=== PATIENT | female | born 1950 | race Two or more races ===

== ENCOUNTER 2016-11-30 10:28 | Inpatient (IN) | payer MEDICAID ==
[2016-11-30] VITALS (9 sets, daily range): BP systolic 127–187; BP diastolic 46–85
[~2016-11-30] VITALS: Ht 154.9 cm; Wt 47.2 kg
[2016-11-30] MEDS ORDERED: METFORMIN HCL500 M5 PO (10:48)
[2016-11-30] MEDS ORDERED: FAMOTIDINE20 MG ORAL (10:48)
[2016-11-30] MEDS ORDERED: LOSARTAN POTASS25 M1 PO ×2 (10:51→21:05)
[2016-11-30] MEDS ORDERED: DILTIAZEM 24HR180 M1 ORAL ×2 (10:51→21:07)
[2016-11-30] MEDS ORDERED: ATORVASTATIN CA20 MG ORAL (10:51)
[2016-11-30] MEDS ORDERED: CLONIDINE1 EAC1 TD (10:51)
[2016-11-30 11:26] LABS: APPEARANCE,URINE CLEAR; KETONES,URINE NEGATIVE (NEGATIVE); LEUKOCYTE ESTERASE ,URINE 1+ (NEGATIVE); NITRITE,URINE NEGATIVE (NEGATIVE); PH,URINE 6 (4.5-8.0); PROTEIN,URINE 2+ (NEGATIVE); UROBILINOGEN,URINE NORMAL MG/DL (0.0-1.0)
[2016-11-30 11:35] LABS: BACTERIA,URINE FEW /HPF; MUCUS,URINE FEW /LPF (NONE/OCC); SQUAMOUS EPITHELIAL CELL,UR FEW /LPF (NONE/OCC); WBC,URINE 0-2 /HPF (0 - 2)
[2016-11-30 11:38] LABS: BASOPHILS % (AUTO) 0.6 % (0.0-2.0); EOSINOPHILS % (AUTO) 0.5 % (0.0-3.0); LYMPHOCYTES % (AUTO) 15.6 % (20.0-45.0); MEAN CORPUSCULAR HGB CONC 31.7 G/DL (32.0-36.0); MEAN CORPUSCULAR VOLUME 85 FL (80-99); MEAN PLATELET VOLUME 6.9 FL (6.5-10.1); MONOCYTES % (AUTO) 6.8 % (1.0-10.0); NEUTROPHILS % (AUTO) 76.6 % (45.0-75.0); PLATELET COUNT 285 K/UL (150-450); RED BLOOD COUNT 5.04 M/UL (4.20-5.40); RED CELL DISTRIBUTION WIDTH 11.4 % (11.6-14.8); WHITE BLOOD COUNT 15.2 K/UL (4.8-10.8)
[2016-11-30 11:50] LABS: TROPONIN I < 0.30 ng/mL (<=0.30)
[2016-11-30 11:53] LABS: ALANINE AMINOTRANSFERASE 17 U/L (3-33); ALBUMIN/GLOBULIN RATIO 1.2 (1.0-2.7); ANION GAP 18 (5-15); ASPARTATE AMINO TRANSFERASE 15 U/L (5-40); CALCIUM 9.2 mg/dL (8.6-10.2); CARBON DIOXIDE 27 mEQ/L (20-30); CHLORIDE 89 mEQ/L (98-107); CREATININE 0.7 mg/dL (0.5-0.9); GLOMERULAR FILTRATION RATE > 60 mL/min (>60); HEMOLYSIS 4; LIPASE 25 U/L (< 60); SODIUM 134 mEQ/L (135-145); TOTAL PROTEIN 6.7 g/dL (6.6-8.7)
[2016-11-30] MEDS ORDERED: Piperacillin/Tazobactam 3.375 GM in NS 110 ML IVPB ONE (14:00)
[2016-11-30] MEDS ORDERED: NS 110 ML ONE (14:04)
[2016-11-30] MEDS ORDERED: Zosyn 3.375gm inj ONE (14:04)
[2016-11-30] MEDS ORDERED: LR 1000ml 1,000 ML IV SCH (14:15)
--- NOTE | 2016-11-30 14:41 | Emergency Room Report ---
History of Present Illness General Chief Complaint: Abdominal Pain Source: Patient Present Illness HPI 66 YO F with 1 week generalized abd pain. /10. Decreased BMs. Usually goes 3x a day, down to 1x. Denies nausea/vomiting, diarrhea, foreign travel, urinary complaints. Denies abd/pelvis surgery previously. Allergies: Coded Allergies: No Known Allergies (Unverified , 11/30/16) Patient History Past Medical History: HTN Past Surgical History: none Pertinent Family History: none Social History: Denies: alcohol use, drug use, smoking Now: No Immunizations: UTD Reviewed Nursing Documentation: PMH: Agreed, PSxH: Agreed Nursing Documentation-PMH Past Medical History: No History, Except For Hx Diabetes: Yes Review of Systems All Other Systems: negative except mentioned in HPI Physical Exam Vital Signs Date Time Temp Pulse Resp B/P Pulse Ox O2 Delivery O2 Flow Rate FiO2 11/30/16 10:41 98.2 94 18 136/64 94 Room Air Sp02 EP Interpretation: reviewed, normal General Appearance: normal inspection, well appearing, no apparent distress, alert, GCS 15, non-toxic Head: normocephalic, atraumatic Eyes: bilateral eye EOMI, bilateral eye PERRL ENT: normal ENT inspection, hearing grossly normal, normal voice Neck: normal inspection, full range of motion, supple, no bony tend Respiratory: normal inspection, lungs clear, normal breath sounds, no respiratory distress, no retraction, no wheezing Cardiovascular #1: regular rate, rhythm, no edema Gastrointestinal: normal inspection, normal bowel sounds, soft, no guarding, no hernia, other - Generalized ttp throughout abdomen. No rebound or guarding. No surgical scars. Genitourinary: no CVA tenderness Musculoskeletal: normal inspection, back normal, normal range of motion, Kathy' s Sign negative Neurologic: normal inspection, alert, oriented x3, responsive, storage battery inspector III-XII nml as tested, motor strength/tone normal, speech normal Psychiatric: normal inspection, judgement/insight normal, mood/affect normal Skin: normal inspection, normal color, no rash Medical Decision Making Medicare Attestation I Debora Licea MD hereby attest that the medical record entry for date of service, 09/15/16 accurately reflects signatures/notations that I made in my capacity as MD when I treated/diagnosed the above listed Medicare beneficiary. I attest that this information is true, accurate and complete to the best of my knowledge. I understand that any falsification, omission, or concealment of material fact may subject me to administrative, civil, or criminal liability. This patient warrants hospital admission for extreme of age and has a condition that cannot be treated as outpatient. Diagnostic Impression: Primary Impression: Perforation of small intestine ER Course 66 YO F with microperf of jejunem on CTAP. Leuks 16k. Empiric Zosyn given. Analgesia given. NPO. Dr Childers bedside to evaluate for surgical intervention Endorsed to Dr Mccracken for Dr Gonzales at 230pm for med/surg admission Last Vital Signs Date Time Temp Pulse Resp B/P Pulse Ox O2 Delivery O2 Flow Rate FiO2 11/30/16 13:24 97 21 127/81 95 Room Air 11/30/16 10:41 98.2 Status: improved Disposition: ADMITTED INPATIENT Condition: Critical Referrals: NON PHYSICIAN (PCP) DEBORA LICEA M.D. Nov 30, 2016 14:41
--- NOTE | 2016-11-30 14:57 | Pre-Procedure Note/Attestation ---
Pre-Procedure Note/Attestation Complete Prior to Procedure Planned Procedure: not applicable Procedure Narrative: exploratory laparotomy possible bowel resection Indications for Procedure Pre-Operative Diagnosis: perforation small bowel Attestation I attest that I discussed the nature of the procedure; its benefits; risks and complications; and alternatives (and the risks and benefits of such alternatives ), prior to the procedure, with the patient (or the patient's legal fraud representative). I attest that, if there was a reasonable possibility of needing a blood transfusion, the patient (or the patient's legal fraud representative) was given the [facility] standardized written summary, pursuant to the Samuel Heidi Blood Safety Act ([place] Health and Safety Code # 1645, as amended). I attest that I re-evaluated the patient just prior to the surgery and that there has been no change in the patient's H&P, except as documented below:none MARELY MCINTYRE Nov 30, 2016 14:57
[2016-11-30] MEDS ORDERED: NS Irrig 1000ml IRRIG ONE (16:00)
--- NOTE | 2016-11-30 16:09 | Anethesia Preoperative Eval ---
Anesthesia Pre-op PMH/ROS General Date of Evaluation: Nov 30, 2016 Time of Evaluation: 15:20 Anesthesiologist: Ad ASA Score: ASA 3 Mallampati Score Class I : Soft palate, uvula, fauces, pillars visible Class II: Soft palate, uvula, fauces visible Class III: Soft palate, base of uvula visible Class IV: Only hard plate visible Mallampati Classification: Class II Surgeon: Alvarado Diagnosis: Perforated viskus Surgical Procedure: Exploratory laparotomy bowel resection Anesthesia History: none Family History: no anesthesia problems Allergies: Coded Allergies: No Known Allergies (Unverified , 11/30/16) Medications: see eMAR Past Medical History Cardiovascular: Reports: HTN, Denies: CAD, GA, arrhythmia, other, valve dz Pulmonary: Denies: COPD, KELLY, asthma, other Gastrointestinal/Genitourinary: Reports: GERD Neurologic/Psychiatric: Denies: CVA, TIA, dementia, depression/anxiety, other Endocrine: Reports: DM, Denies: hypothyroidism, other, steroids HEENT: Denies: [place] (L), [place] (R), cataract (L), cataract (R), glaucoma, other Hematology/Immune: Denies: DVT, anemia, bleeding disorder, other Musculoskeletal/Integumentary: Reports: DJD, Denies: DDD, OA, RA, edema, other PMH Narrative: admitted for acute abdominal pain PSxH Narrative: Knee Sx Anesthesia Pre-op Phys. Exam Physician Exam Last Vital Signs Date Time Temp Pulse Resp B/P Pulse Ox O2 Delivery O2 Flow Rate FiO2 11/30/16 15:30 98.2 97 21 127/81 95 Room Air Constitutional: NAD Neurologic: CN 2-12 intact Cardiovascular: RRR, no M/R/G Respiratory: CTA Gastrointestinal: other - some tenderness Airway Exam Mallampati Score: Class II MO: limited Neck: stiff ROM: limited Teeth: missing Dentures: lower, upper Anesthesia Pre-op A/P Labs Hematology Test 11/30/16 11:20 White Blood Count 15.2 K/UL (4.8-10.8) H Red Blood Count 5.04 M/UL (4.20-5.40) Hemoglobin 13.6 G/DL (12.0-16.0) Hematocrit 42.9 % (37.0-47.0) Mean Corpuscular Volume 85 FL (80-99) Mean Corpuscular Hemoglobin 27.0 PG (27.0-31.0) Mean Corpuscular Hemoglobin Concent 31.7 G/DL (32.0-36.0) L Red Cell Distribution Width 11.4 % (11.6-14.8) L Platelet Count 285 K/UL (150-450) Mean Platelet Volume 6.9 FL (6.5-10.1) Neutrophils (%) (Auto) 76.6 % (45.0-75.0) H Lymphocytes (%) (Auto) 15.6 % (20.0-45.0) L Monocytes (%) (Auto) 6.8 % (1.0-10.0) Eosinophils (%) (Auto) 0.5 % (0.0-3.0) Basophils (%) (Auto) 0.6 % (0.0-2.0) Chemistry Test 11/30/16 11:20 Sodium Level 134 mEQ/L (135-145) L Potassium Level 3.0 mEQ/L (3.4-4.9) L Chloride Level 89 mEQ/L (98-107) L Carbon Dioxide Level 27 mEQ/L (20-30) Anion Gap 18 (5-15) H Blood Urea Nitrogen 13 mg/dL (7-23) Creatinine 0.7 mg/dL (0.5-0.9) Estimat Glomerular Filtration Rate > 60 mL/min (>60) Glucose Level 155 mg/dL (74-106) H Calcium Level 9.2 mg/dL (8.6-10.2) Total Bilirubin 0.9 mg/dL (0.0-1.2) Aspartate Amino Transf (AST/SGOT) 15 U/L (5-40) Alanine Aminotransferase (ALT/SGPT) 17 U/L (3-33) Alkaline Phosphatase 48 U/L (35-104) Troponin I < 0.30 ng/mL (<=0.30) Total Protein 6.7 g/dL (6.6-8.7) Albumin 3.7 g/dL (3.5-5.2) Globulin 3.0 g/dL Albumin/Globulin Ratio 1.2 (1.0-2.7) Lipase 25 U/L (< 60) MYLENE BARRAZA M.D. Nov 30, 2016 16:09
[2016-11-30] MEDS ORDERED: LR 1000ml 1,000 ML IVLG SCH (16:10)
[2016-11-30] MEDS ORDERED: Hydromorphone 0.5mg/0.5ml inj IVP PRN (16:15)
[2016-11-30] MEDS ORDERED: fentaNYL 100 mcg/2 mL IV PRN (16:15)
[2016-11-30] MEDS ORDERED: DiphenhydrAMINE 50mg/ml Inj IVP PRN (16:15)
[2016-11-30] MEDS ORDERED: Midazolam 2mg/2ml Inj IVP PRN (16:15)
--- NOTE | 2016-11-30 16:53 | Brief Operative Note ---
Immediate Post Operative Note Operative Note Pre-op Diagnosis: perforation small bowel Procedure: explor lap small bowel resection Post-op Diagnosis: small bowel perforation Surgeon: anna Anesthesiologist: Dr hernandez Anesthesia: general Complications: none Condition: stable Estimated Blood Loss: volume - 30 cc Drains: none Implant(s) used?: No MARELY MCINTYRE Nov 30, 2016 16:53
--- NOTE | 2016-11-30 17:07 | Immediate Post-Op Evaluation ---
Immediate Post-Op Evalulation Immediate Post-Op Evalulation Procedure: Exploratory Laparotomy partial bowel resection Date of Evaluation: Nov 30, 2016 Time of Evaluation: 17:06 IV Fluids: 1100 Blood Products: none Estimated Blood Loss: 50 Urinary Output: none Blood Pressure Systolic: 168 Blood Pressure Diastolic: 72 Pulse Rate: 78 Respiratory Rate: 20 O2 Sat by Pulse Oximetry: 99 Temperature (Fahrenheit): 98.2 Pain Score (1-10): 2 Nausea: No Vomiting: No Complications none Patient Status: reacts, patent, extubated, none Hydration Status: adequate MYLENE BARRAZA M.D. Nov 30, 2016 17:07
[2016-11-30 18:33] LABS: MEAN CORPUSCULAR VOLUME 85 FL (80-99); RED BLOOD COUNT 5.05 M/UL (4.20-5.40)
[2016-11-30 18:34] LABS: BASOPHILS % (AUTO) 0.5 % (0.0-2.0); EOSINOPHILS % (AUTO) 0.5 % (0.0-3.0); LYMPHOCYTES % (AUTO) 16.8 % (20.0-45.0); MEAN CORPUSCULAR HEMOGLOBIN 27.5 PG (27.0-31.0); MEAN CORPUSCULAR HGB CONC 32.2 G/DL (32.0-36.0); MONOCYTES % (AUTO) 5.4 % (1.0-10.0); NEUTROPHILS % (AUTO) 76.8 % (45.0-75.0); PLATELET COUNT 262 K/UL (150-450); RED CELL DISTRIBUTION WIDTH 11.4 % (11.6-14.8)
[2016-11-30 18:42] LABS: ANION GAP 17 (5-15); CALCIUM 8.4 mg/dL (8.6-10.2); CARBON DIOXIDE 26 mEQ/L (20-30); CHLORIDE 95 mEQ/L (98-107); CREATININE 0.6 mg/dL (0.5-0.9); GLOMERULAR FILTRATION RATE > 60 mL/min (>60); HEMOLYSIS 5; POTASSIUM 3.1 mEQ/L (3.4-4.9); SODIUM 138 mEQ/L (135-145)
--- NOTE | 2016-11-30 20:49 | History and Physical Report ---
DATE OF ADMISSION: 11/30/2016 ADMITTING PHYSICIAN: Dr. Gutierrez. SURGEON: Ronen Childers M.D. ADMITTING DIAGNOSIS: Perforated viscus. HISTORY OF PRESENT ILLNESS: This is a 66-year-old [place] woman presented to the ED with a two-day history of abdominal pain, diffuse in the mid abdomen, no known cause and no unusual foods. The patient underwent CT scan of the abdomen. Results of which discussed with the radiologist showed an area of perforation of the mid small bowel with adjacent stranding and foci of extraluminal gas suggestive of microperforation. There are no other significant findings. Normal appendix. No free fluid. No calcifications. Some mild gallbladder distention without stones and no diverticulum. The patient is mildly tender. She has had no fever, nausea or vomiting. She does report some loose stools. No previous abdominal surgery. PAST MEDICAL HISTORY: Remarkable for hypertension, diabetes, and hypercholesterolemia. PAST SURGICAL HISTORY: She has had right knee surgery. MEDICATIONS: On admission include Klonopin, atorvastatin, metformin, phentermine, and losartan. ALLERGIES: She has no known allergies. SOCIAL HISTORY: She is single, retired. REVIEW OF SYSTEMS: Pulmonary: No history of asthma, bronchitis, emphysema, tuberculosis or pneumonia. Cardiac: No history of chest pain, palpitations, irregular heart beat, angina or myocardial infarction. Gastrointestinal: She does admit to some mild gastroesophageal reflux disease. No history of peptic ulcers. No history of colitis, diarrhea, or hemorrhoids. No history of hepatitis, jaundice or pancreatitis. Genitourinary: No history of kidney stones, dysuria, hematuria or urinary tract infections. Orthopedics: The patient has had previous right knee surgery. PHYSICAL EXAMINATION: GENERAL: The patient is a well-developed, moderately obese, elderly woman, awake, alert and conversant in mild distress. VITAL SIGNS: Temperature 98.2 degrees, pulse of 94, respirations 18, and blood pressure 136/64. HEENT: Normocephalic. The sclerae not icteric. The pupils are round and react to light. The throat is clear. No exudates or pharyngitis. NECK: Supple. No JVD or thyromegaly. LUNGS: Clear bilaterally. BREASTS: Soft. No dominant masses. HEART: Normal sinus rhythm. ABDOMEN: Soft. There is some mild tenderness in the mid abdomen, but no peritoneal signs. No guarding or rigidity is noted. LABORATORY AND DIAGNOSTIC DATA: White blood count of 15.2, hemoglobin of 13.6, hematocrit 42.9, and platelet count is 285,000. The chemistry shows a sodium 134, potassium 3.0, chloride 89, bicarbonate 27, BUN is 13, creatinine is 0.7, and glucose is 155. Calcium is 9.2. Total bilirubin 0.9. AST of 15, ALT of 17 and alkaline phosphatase of 48. Total protein 6.7. Albumin 3.7. Lipase is 25. CT scan, as discussed with the radiologist findings consistent with perforation of the small intestine. PLAN: The patient apparently had been advised that because of these findings, she should undergo exploratory laparotomy, as this may entail a small bowel resection. Presumed hospital course discussed in detail. She understands the above and agrees that we proceed. Ronen Childers M.D. DR: OBI JOB#: [id number] CC: LAURA
[2016-11-30] MEDS ORDERED: CLONIDINE0.1 MG ORAL (21:03)
[2016-11-30] MEDS: D5 1/2NS w/KCl 20mEq 1,000 ML IV SCH (21:45)
[2016-11-30] MEDS: Heparin 5000 units/ml inj SUBQ SCH (22:00)
[2016-11-30] MEDS: Hydromorphone 0.5mg/0.5ml inj IVP PRN (22:42)
[2016-11-30] MEDS: ceFAZolin sod 1 GM in D5W 55 ML IV SCH (23:12)
[2016-12-01] VITALS: BP 161/76
[2016-12-01] MEDS: HYDROmorphone 1mg/ml Carpuject IVP PRN ×3 (03:13→22:35)
--- NOTE | 2016-12-01 03:29 | Procedure Note ---
DATE OF PROCEDURE: 11/30/2016 SURGEON: Ronen Childers M.D. ANESTHESIOLOGIST: Prince Duong M.D. PREOPERATIVE DIAGNOSIS: Perforated small bowel. POSTOPERATIVE DIAGNOSIS: Perforated small bowel. PROCEDURES: Exploratory laparotomy with small bowel resection. INDICATION: This 66-year-old, [place] woman presented to the emergency department with a two day history of abdominal pain localized in the mid abdomen. No fever or other symptoms according to the patient. She did have a white blood count of 15.2. A CT scan was performed that was read by the radiologist as swelling in the area, perforation of the mid small bowel with stranding in the area air bubbles consistent with a small bowel perforation and no obvious etiology. There was no other significant findings. Possibilities include a rupture small-bowel diverticulum versus an ingested foreign body with perforation (both are too thick). Because of same, it was recommended the patient that she undergo exploratory laparotomy. The procedures, benefits, complications including possible need for bowel resection, possible complications postoperatively including bleeding, infection, anesthestic complications of a small bowel obstruction, abscess formation discussed in detail. She understands the above and agrees that we proceed. OPERATIVE FINDINGS: On opening the abdomen, mid small bowel, there was a loop of small bowel adherent to another loop and this was carefully mobilized and delivered. There is an area where of small bowel was somewhat thickened and adherent to another loop of small bowel. This was gently freed up. There is no evidence of perforation in this side, On the other loop there was induration extending into the mesentery suggestive of a small-bowel perforation into the mesentery. There is no tova pus or free fluid and we decided that it was safer to resect this segment. Rest of the abdominal findings, the liver was smooth, the gallbladder was distended, but no palpable stones. Stomach was smooth and she confirmed to be in correct position one placed. Small bowel was run from the ileocecal valve to ligament of Treitz with no evidence of any other pathology. No Meckel's was seen. The cecum was identified. The appendix was normal. Ascending colon, transverse, descending, and sigmoid colon well palpated and felt to be normal. The uterus was atrophic. The bladder was minimally distended. PROCEDURE IN DETAIL: The patient was identified in the preoperative holding area. The surgery discussed. She was brought into the operating room just under general anesthesia and endotracheal intubation. The abdomen was prepped and draped in a sterile manner. Time-out performed confirming the patient's position, procedure, anesthesia, antibiotic, and allergy status. A midline incision in the epigastrium was made down to the level of the umbilicus carried down through skin and subcutaneous tissue. The midline fascia was divided. The peritoneum nicked and opened. Then, the abdomen then explored with the above-noted findings. The small bowel was eviscerated and has noted there was an area of indurated small bowel with the perforation area currently appeared to be mostly into the mesenteric. Another loop of bowel had been adherent to this, but this was only inflammatory rind. No evidence of any perforation at other site. The bowel appeared to be viable, but because of the induration around it was felt that there is more prudent to resect this bowel to prevent the possibility of strictures formation accordingly. Small-bowel resection was performed. The site was chosen approximately 10 cm proximal and distal to this affected segment. Window was made in the mesentery subjacent to the bowel across which was placed a ABE anastomosis before and after the area of concern. The bowel divided with a ABE the mesentery between these two staple lines was clamped cut and tied with 2-0 silk. The specimen was sent to pathology for examination. Anastomosis was completed by the infection the bowel side by side with interrupted 3-0 silks on the mesenteric border. An enterotomy was made on the antimesenteric side of each loop of the bowel near the staple line and the forks of the anastomosis were placed across the and fired thus forming the anastomosis. The anastomosis was checked found to be widely patent and no evidence of bleeding. The holes made by the first of the stapler was approximated and closed with the Allis clamps and a TA #60 was passed across this and fired, thus completing the anastomosis. The suture lines inspected to make sure there was no active bleeding. The mesenteric defect was closed with a running 2-0 silk suture. The segment of bowel was carefully washed and then the rest of the bowel was run. The abdomen once again re-explored making sure that there was about a findings. The abdomen was then irrigated with warm normal saline and aspirated. The small bowel was carefully reduced into the abdominal cavity. After making sure that sponge and needle count was correct. There was no active bleeding. The midline fascia was closed with running #1 PDS suture. Subcutaneous tissue was irrigated the stapled with a stapler and covered with dry sterile dressing. Blood loss for the entire procedure was less than 30 mL. The patient tolerated the procedure well, discharged to recovery room, extubated in stable condition. Ronen Childers M.D. DR: Janie JOB#: [id number] CC: Ronen Childers M.D.; Fax#: [phone] Rodrigues M.D.; Fax#: [phone] [facility] CENTERCristobal
[2016-12-01 04:00] VITALS: BP 159/81
[2016-12-01] MEDS: ceFAZolin sod 1 GM in D5W 55 ML IV SCH (05:14)
[2016-12-01] MEDS: D5 1/2NS w/KCl 20mEq 1,000 ML IV SCH ×3 (05:44→21:45)
[2016-12-01] MEDS: NovoLOG Insulin Flexpen SUBQ SCH ×3 (06:12→17:10)
[2016-12-01] MEDS: Diltiazem CD 180mg cap ORAL SCH ×2 (06:55→17:07)
[2016-12-01] MEDS: Losartan 50mg tab ORAL SCH (06:56)
[2016-12-01 08:00] VITALS: BP 152/65
[2016-12-01 08:16] LABS: ANION GAP 17 (5-15); CALCIUM 8.4 mg/dL (8.6-10.2); CARBON DIOXIDE 24 mEQ/L (20-30); CHLORIDE 95 mEQ/L (98-107); CREATININE 0.7 mg/dL (0.5-0.9); GLOMERULAR FILTRATION RATE > 60 mL/min (>60); HEMOLYSIS 1; POTASSIUM 3.2 mEQ/L (3.4-4.9); SODIUM 136 mEQ/L (135-145)
[2016-12-01 08:45] LABS: BASOPHILS % (AUTO) 0.5 % (0.0-2.0); EOSINOPHILS % (AUTO) 0.4 % (0.0-3.0); MEAN CORPUSCULAR HEMOGLOBIN 27.9 PG (27.0-31.0); MEAN CORPUSCULAR HGB CONC 32.7 G/DL (32.0-36.0); MEAN CORPUSCULAR VOLUME 86 FL (80-99); MEAN PLATELET VOLUME 6.6 FL (6.5-10.1); MONOCYTES % (AUTO) 7.5 % (1.0-10.0); NEUTROPHILS % (AUTO) 79.6 % (45.0-75.0); PLATELET COUNT 269 K/UL (150-450); RED BLOOD COUNT 4.78 M/UL (4.20-5.40); RED CELL DISTRIBUTION WIDTH 11.8 % (11.6-14.8); WHITE BLOOD COUNT 12.7 K/UL (4.8-10.8)
[2016-12-01] MEDS: Heparin 5000 units/ml inj SUBQ SCH ×2 (09:05→20:28)
--- NOTE | 2016-12-01 09:50 | Diagnostic Imaging Report ---
Indication: Abdominal pain Technique: Continuous helical transaxial imaging of the abdomen and pelvis was obtained from the lung bases to the pubic symphysis during intravenous contrast administration. Coronal 2-D reformats were also obtained. Study obtained in a Siemens sensation [address] Total Dose length Product (DLP): [address] Dose Index Volume (CTDIvol): 11, 11 mGy Comparison: None Findings: Moderate motion artifact limits evaluation. Abnormal loop of small bowel in the left side of abdomen demonstrated with thickening of the wall and suggestion of a small focus of extraluminal air on the mesenteric side (series 8, image [id number]). There is suggestion of mild posterior basilar scarring especially on the right lung base. Small hypodensity noted in the central part of the liver nonspecific. Gallbladder is distended. There is no hydronephrosis or evidence of bowel obstruction. Uterine calcifications are present. The appendix is normal. No free fluid identified. There is narrowing of intervertebral discs and accompanying endplate osteophyte formation. Hypertrophied facet joints also demonstrated. Impression: Abnormal small bowel loop with a thin wall and extraluminal air suggestive of microperforation. Considerations include infectious/inflammatory enteritis, localize ischemia and tumor. Please correlate clinically Limited evaluation due to motion. Tiny hypodensity in the liver too small to characterize. Atherosclerotic vascular disease Normal appendix Uterine consultation likely fibroids Spondylosis Dr. Orozco has communicated the preliminary results to the Emergency Department. There are no significant discrepancies. The CT scanner at [facility] is accredited by the [employer] and the scans are performed using protocols designed to limit radiation exposure to as low as reasonably achievable to attain images of sufficient resolution adequate for diagnostic evaluation.
--- NOTE | 2016-12-01 10:03 | Cardiology Report ---
APPROVED REPORT EKG Measurement Heart [id number] HI [id number] Sinus rhythm with premature atrial complexes Voltage criteria for left ventricular hypertrophy Nonspecific T wave abnormality Abnormal ECG
--- NOTE | 2016-12-01 11:34 | General Progress Note ---
Progress Note Progress Note Patient seen and examined at bedside. doing well. no acute events. incisional pain but well controlled with pain meds. ng tube in place and functional. no n/v/f/c. labs stable. exam benign. Plan: NPO with IV fluids IV Abx NG tube to wall suction Ambulate and OOB Await return of bowel function. Ken Henley Dec 01, 2016 11:34
[2016-12-01 12:00] VITALS: BP 100/72
[2016-12-01] MEDS: Hydromorphone 0.5mg/0.5ml inj IVP PRN (14:34)
[2016-12-01] MEDS ORDERED: LR 1000ml ONE (15:45)
[2016-12-01] MEDS ORDERED: Labetalol 5mg/ml 20ml vial IV ONE (15:45)
[2016-12-01] MEDS ORDERED: Propofol 10mg/ml 20ml IV ONE (15:45)
[2016-12-01] MEDS ORDERED: NS Irrig 1000ml ONE (15:45)
[2016-12-01] MEDS ORDERED: Sterile Water Irrig 1000ml IRRIG ONE (15:45)
[2016-12-01] MEDS ORDERED: Morphine Sulfate 10mg/ml Inj ONE (15:45)
[2016-12-01] MEDS ORDERED: fentaNYL 100 mcg/2 mL IV ONE (15:45)
[2016-12-01] MEDS ORDERED: Zemuron 50mg/5ml Inj IV ONE (15:45)
[2016-12-01] MEDS ORDERED: Midazolam 2mg/2ml Inj ONE (15:45)
[2016-12-01] MEDS ORDERED: Neostigmine 1mg/ml 10ml Inj ONE (15:45)
[2016-12-01] MEDS ORDERED: Glycopyrrolate 0.2mg/ml 1ml Vial ONE (15:45)
[2016-12-01 16:02] VITALS: BP 154/78
[2016-12-01 20:00] VITALS: BP 127/72
[2016-12-02] VITALS (7 sets, daily range): BP systolic 123–166; BP diastolic 64–90
[2016-12-02] MEDS: NovoLOG Insulin Flexpen SUBQ SCH ×4 (00:30→17:51)
[2016-12-02] MEDS: D5 1/2NS w/KCl 20mEq 1,000 ML IV SCH ×3 (02:19→22:41)
[2016-12-02] MEDS: HYDROmorphone 1mg/ml Carpuject IVP PRN ×4 (04:46→22:41)
[2016-12-02 07:27] LABS: BASOPHILS % (AUTO) 0.3 % (0.0-2.0); LYMPHOCYTES % (AUTO) 10.6 % (20.0-45.0); MEAN CORPUSCULAR HEMOGLOBIN 27.5 PG (27.0-31.0); MEAN CORPUSCULAR HGB CONC 32.4 G/DL (32.0-36.0); MEAN CORPUSCULAR VOLUME 85 FL (80-99); MONOCYTES % (AUTO) 9.4 % (1.0-10.0); NEUTROPHILS % (AUTO) 78.9 % (45.0-75.0); PLATELET COUNT 249 K/UL (150-450); RED BLOOD COUNT 4.31 M/UL (4.20-5.40); RED CELL DISTRIBUTION WIDTH 11.1 % (11.6-14.8); WHITE BLOOD COUNT 9.6 K/UL (4.8-10.8)
[2016-12-02 07:34] LABS: ANION GAP 12 (5-15); CALCIUM 8.3 mg/dL (8.6-10.2); CARBON DIOXIDE 29 mEQ/L (20-30); CHLORIDE 93 mEQ/L (98-107); CREATININE 0.5 mg/dL (0.5-0.9); GLOMERULAR FILTRATION RATE > 60 mL/min (>60); HEMOLYSIS 2; POTASSIUM 3.2 mEQ/L (3.4-4.9); SODIUM 134 mEQ/L (135-145)
[2016-12-02] MEDS: Losartan 50mg tab ORAL SCH (08:20)
[2016-12-02] MEDS: Diltiazem CD 180mg cap ORAL SCH ×2 (08:21→17:42)
[2016-12-02] MEDS: Heparin 5000 units/ml inj SUBQ SCH ×2 (08:29→20:45)
--- NOTE | 2016-12-02 10:23 | 48 Hour Post Anesthesia Eval ---
Post Anesthesia Evaluation Procedure: Exploratory Laparotomy partial bowel resection Date of Evaluation: Dec 02, 2016 Time of Evaluation: 07:00 Blood Pressure Systolic: 152 0: 74 Pulse Rate: 97 Respiratory Rate: 18 Temperature (Fahrenheit): 97.9 O2 Sat by Pulse Oximetry: 97 Airway: patent Nausea: No Vomiting: No Pain Intensity: 2 Hydration Status: adequate Cardiopulmonary Status: at baseline Mental Status/LOC: patient returned to baseline Post-Anesthesia Complications: 0 Follow-up care needed: N/A - further care as per primary team KAYLEY MCCLURE M.D. Dec 02, 2016 10:23
--- NOTE | 2016-12-02 11:20 | General Progress Note ---
Progress Note Progress Note Surgery: patient seen and examined at bedside. doing well. pain well controlled. no n/ v/f/c. passing flatus. no bm yet. leukocytosis resolved. Abd - soft, nd, incisional tenderness, dressings removed and wound c/d/i. Plan: NG tube removed by myself this AM Cont NPO with IV fluids for now. likely start clear liquids tomorrow Ambulate and OOB Replace K+ repeat labs tomorrow. Ken Henley Dec 02, 2016 11:20
[2016-12-02] MEDS ORDERED: Tubing IV Secondary IV ONE (15:56)
[2016-12-03] VITALS: BP 127/68
[2016-12-03] MEDS: NovoLOG Insulin Flexpen SUBQ SCH ×4 (00:25→17:17)
[2016-12-03 04:00] VITALS: BP 143/67
[2016-12-03] MEDS: D5 1/2NS w/KCl 20mEq 1,000 ML IV SCH ×2 (05:37→11:01)
[2016-12-03] MEDS: HYDROmorphone 1mg/ml Carpuject IVP PRN ×4 (05:38→21:33)
[2016-12-03 07:24] LABS: BASOPHILS % (AUTO) 0.5 % (0.0-2.0); EOSINOPHILS % (AUTO) 1.3 % (0.0-3.0); LYMPHOCYTES % (AUTO) 10.2 % (20.0-45.0); MEAN CORPUSCULAR HEMOGLOBIN 27.9 PG (27.0-31.0); MEAN CORPUSCULAR HGB CONC 32.9 G/DL (32.0-36.0); MEAN CORPUSCULAR VOLUME 85 FL (80-99); MEAN PLATELET VOLUME 6.8 FL (6.5-10.1); MONOCYTES % (AUTO) 8.5 % (1.0-10.0); NEUTROPHILS % (AUTO) 79.5 % (45.0-75.0); PLATELET COUNT 280 K/UL (150-450); RED BLOOD COUNT 4.02 M/UL (4.20-5.40); RED CELL DISTRIBUTION WIDTH 11.2 % (11.6-14.8)
[2016-12-03 07:25] LABS: ANION GAP 13 (5-15); CALCIUM 8.4 mg/dL (8.6-10.2); CARBON DIOXIDE 23 mEQ/L (20-30); CHLORIDE 94 mEQ/L (98-107); CREATININE 0.4 mg/dL (0.5-0.9); GLOMERULAR FILTRATION RATE > 60 mL/min (>60); HEMOLYSIS 0; SODIUM 130 mEQ/L (135-145)
[2016-12-03 08:00] VITALS: BP 129/60
[2016-12-03] MEDS: Diltiazem CD 180mg cap ORAL SCH ×2 (08:23→17:16)
[2016-12-03] MEDS: Losartan 50mg tab ORAL SCH (08:23)
[2016-12-03] MEDS: Heparin 5000 units/ml inj SUBQ SCH ×2 (08:30→21:33)
--- NOTE | 2016-12-03 10:38 | General Surgery Progress Note ---
General Surgery-Progress Note Subjective Procedure Performed exploratory laparotomy, partial SB resection Chief Complaint: thirsty Objective Last 24 Hour Vital Signs Date Time Temp Pulse Resp B/P Pulse Ox O2 Delivery O2 Flow Rate FiO2 12/03/16 08:23 129/60 12/03/16 08:23 94 129/60 12/03/16 08:00 96.8 66 18 129/60 94 Room Air 12/03/16 06:08 98.2 12/03/16 04:00 97.9 75 18 143/67 95 Room Air 12/03/16 00:00 98.2 78 18 127/68 93 Room Air 12/02/16 20:44 123/67 12/02/16 20:00 98.8 84 18 123/67 98 Nasal Cannula 2.0 12/02/16 17:42 113 152/90 12/02/16 16:17 97.7 113 20 152/90 97 Room Air 12/02/16 11:59 97.0 93 19 140/77 98 Nasal Cannula 2.0 I&O Intake and Output 12/02/16 12/03/16 19:00 07:00 Intake Total 1325 ml 1500 ml Output Total 200 ml 300 ml Balance 1125 ml 1200 ml Intake IV Total 1325 ml 1500 ml Output Urine Total 300 ml Other 200 ml # Voids 2 Wound: clean Drains: none Cardiovascular: RSR Respiratory: clear Abdomen: soft, present bowel sounds Extremities: no edema Laboratory Tests Test 12/03/16 06:20 White Blood Count 8.0 K/UL (4.8-10.8) Red Blood Count 4.02 M/UL (4.20-5.40) L Hemoglobin 11.2 G/DL (12.0-16.0) L Hematocrit 34.1 % (37.0-47.0) L Mean Corpuscular Volume 85 FL (80-99) Mean Corpuscular Hemoglobin 27.9 PG (27.0-31.0) Mean Corpuscular Hemoglobin Concent 32.9 G/DL (32.0-36.0) Red Cell Distribution Width 11.2 % (11.6-14.8) L Platelet Count 280 K/UL (150-450) Mean Platelet Volume 6.8 FL (6.5-10.1) Neutrophils (%) (Auto) 79.5 % (45.0-75.0) H Lymphocytes (%) (Auto) 10.2 % (20.0-45.0) L Monocytes (%) (Auto) 8.5 % (1.0-10.0) Eosinophils (%) (Auto) 1.3 % (0.0-3.0) Basophils (%) (Auto) 0.5 % (0.0-2.0) Sodium Level 130 mEQ/L (135-145) L Potassium Level 4.0 mEQ/L (3.4-4.9) Chloride Level 94 mEQ/L (98-107) L Carbon Dioxide Level 23 mEQ/L (20-30) Anion Gap 13 (5-15) Blood Urea Nitrogen 4 mg/dL (7-23) L Creatinine 0.4 mg/dL (0.5-0.9) L Estimat Glomerular Filtration Rate > 60 mL/min (>60) Glucose Level 232 mg/dL (74-106) H Calcium Level 8.4 mg/dL (8.6-10.2) L Additional Comments Stable, GI function returning Path showed perforated SB diverticulum. Assessment Additional Comments Clear liquids, decrease diet EDUARDO AVILA Dec 03, 2016 10:38
[2016-12-03 12:00] VITALS: BP 137/69
[2016-12-03 16:00] VITALS: BP 143/73
[2016-12-03 20:00] VITALS: BP 145/79
[2016-12-04] VITALS: BP 148/74
[2016-12-04] MEDS: D5 1/2NS w/KCl 20mEq 1,000 ML IV SCH ×2 (00:36→12:31)
[2016-12-04] MEDS: NovoLOG Insulin Flexpen SUBQ SCH ×4 (00:38→18:47)
[2016-12-04 04:00] VITALS: BP 155/69
[2016-12-04 08:00] VITALS: BP 161/70
[2016-12-04] MEDS: Losartan 50mg tab ORAL SCH (08:01)
[2016-12-04] MEDS: Diltiazem CD 180mg cap ORAL SCH ×2 (08:01→18:45)
[2016-12-04] MEDS: Heparin 5000 units/ml inj SUBQ SCH ×2 (08:11→20:45)
[2016-12-04] MEDS ORDERED: Norco 5mg/325mg tab ORAL PRN ×2 (09:45)
--- NOTE | 2016-12-04 09:51 | General Surgery Progress Note ---
General Surgery-Progress Note Subjective Symptoms: improved Objective Last 24 Hour Vital Signs Date Time Temp Pulse Resp B/P Pulse Ox O2 Delivery O2 Flow Rate FiO2 12/04/16 08:31 97.5 12/04/16 08:01 161/69 12/04/16 08:01 79 161/69 12/04/16 08:00 98.1 78 18 161/70 98 Nasal Cannula 2.0 12/04/16 04:00 97.5 79 19 155/69 98 Nasal Cannula 2.0 12/04/16 00:00 97.3 81 19 148/74 Nasal Cannula 2.0 12/03/16 22:03 97.7 12/03/16 21:32 145/79 12/03/16 20:00 97.7 79 20 145/79 Nasal Cannula 2.0 12/03/16 17:16 79 143/73 12/03/16 16:00 97.9 79 20 143/73 92 Room Air 12/03/16 12:00 97.3 77 18 137/69 94 Room Air I&O Intake and Output 12/03/16 12/04/16 19:00 07:00 Intake Total 765 ml 590 ml Balance 765 ml 590 ml Intake Oral 290 ml 290 ml IV Total 475 ml 300 ml # Voids 4 2 Wound: clean Drains: none Cardiovascular: RSR Respiratory: clear Abdomen: soft Extremities: no edema Assessment Post-op Diagnosis perforated jejunal diverticulum Additional Comments Pt is tolerating clear liquids Plan Additional Comments We will advance her to full liquid diet, will d/c parenteral narcotics and switch to [place] for pain Pedro Llanos MD Dec 04, 2016 09:51
[2016-12-04 12:00] VITALS: BP 114/72
[2016-12-04] MEDS: Norco 10mg/325mg tab ORAL PRN ×2 (13:00→18:46)
[2016-12-04 16:23] VITALS: BP 143/67
[2016-12-04 20:00] VITALS: BP 161/77
[2016-12-05] VITALS: BP 119/62
[2016-12-05] MEDS: NovoLOG Insulin Flexpen SUBQ SCH ×4 (00:21→18:07)
[2016-12-05] MEDS: D5 1/2NS w/KCl 20mEq 1,000 ML IV SCH (01:57)
[2016-12-05 04:00] VITALS: BP 145/65
[2016-12-05] MEDS: Norco 10mg/325mg tab ORAL PRN ×2 (04:29→12:32)
--- NOTE | 2016-12-05 07:06 | General Progress Note ---
Progress Note Progress Note patient seen and examined. no acute events. recovering well. pain improved. tolerating oral diet. +flatus, +small BM. no nv/f/c. plan: advance diet d/c IV fluids discharge planning; likely this weekend. Ken Henley Dec 05, 2016 07:06
[2016-12-05 08:12] VITALS: BP 113/75
[2016-12-05] MEDS: Diltiazem CD 180mg cap ORAL SCH ×2 (08:50→18:05)
[2016-12-05] MEDS: Losartan 50mg tab ORAL SCH (08:50)
[2016-12-05] MEDS: Heparin 5000 units/ml inj SUBQ SCH ×2 (08:56→21:12)
[2016-12-05 12:18] VITALS: BP 154/69
[2016-12-05 16:00] VITALS: BP 157/74
[2016-12-05 20:00] VITALS: BP 153/59
[2016-12-06] VITALS: BP 129/62
[2016-12-06] MEDS: NovoLOG Insulin Flexpen SUBQ SCH ×3 (00:36→12:05)
[2016-12-06] MEDS: Norco 10mg/325mg tab ORAL PRN ×2 (00:38→13:37)
[2016-12-06 04:00] VITALS: BP 143/65
[2016-12-06 08:36] VITALS: BP 143/73
[2016-12-06] MEDS: Losartan 50mg tab ORAL SCH (08:58)
[2016-12-06] MEDS: Diltiazem CD 180mg cap ORAL SCH (08:58)
[2016-12-06] MEDS: Heparin 5000 units/ml inj SUBQ SCH (09:02)
[2016-12-06 12:06] VITALS: BP 143/68
--- NOTE | 2016-12-06 14:36 | General Progress Note ---
Progress Note Progress Note Pain decreased, eating OK, having BM's. Abdomen:soft, BS normal , wound clean, wesly removed and wound steri-stripped Doing well, May go home today F/U office Dr. Alvarado [place]. Tylenol#3 # 30. EDUARDO AVILA Dec 06, 2016 14:36
[2016-12-06] MEDS ORDERED: ACETAMINOPHEN-1 EAC1 ORAL (14:46)
[2016-12-06 16:00] VITALS: BP 146/71
--- NOTE | 2016-12-08 12:37 | Discharge Summary ---
Discharge Summary Hospital Course Date of Admission Nov 30, 2016 at 14:20 Date of Discharge Dec 06, 2016 at 16:10 Admitting Diagnosis Bowel Perforation MARBIN Watson is a 66 year old female who was admitted on Nov 30, 2016 at 14:20 for Perforation Of Small Intestine Hospital Course dc summary#[id number] Discharge Medications Continued Medications: Acetaminophen With Codeine (T#3) (Tylenol #3 Tab*) Y Tab 1 TAB ORAL Q4H PRN for For Pain, #30 TAB Clonidine HCl (Clonidine HCl) 0.1 Mg Tablet 0.1 MG ORAL BEDTIME, TAB Diltiazem Hcl (Diltiazem 24HR Er) 180 Mg Cap.er.24h 180 MG ORAL TWICE A DAY, #30 CAP 0 Refills Losartan Potassium (Losartan Potassium) 25 Mg Tablet 100 MG PO DAILY, TAB Discharge Condition Upon Discharge: stable Discharge Disposition Patient was discharged to Home (01) Discharge Diagnoses: Discharge Instructions Discharge Instructions Special Instructions I have been assigned to complete a D/C Summary on this account. I was not involved in the patient management Rohini Sheppard NP ([facility]anchtein) Dec 08, 2016 12:37
--- NOTE | 2016-12-09 00:18 | Discharge Summary 2 SIG ---
DATE OF ADMISSION: 11/30/2016 DATE OF DISCHARGE: 12/06/2016 REASON FOR ADMISSION: 66 years old female came to emergency room complaining of diffuse generalized abdominal pain 8/10 for the last week. She reported decreased bowel movement. She denied nausea, vomiting, or diarrhea. She denied flank pain or dysuria. No recent traveling. She denied recent abdominal or pelvic surgery. Workup in the emergency room revealed leukocytosis of 16. CT of the abdomen and pelvis revealed evidence of abnormal small bowel loop with thin wall and extraluminal air suggestive of microperforation. Surgery consult was requested immediately. The patient started on empiric antibiotics, intravenous fluids, kept NPO, and admitted to the hospital for further management. ADMITTING DIAGNOSES: Abdominal pain Perforation of small intestine. HOSPITAL COURSE: The patient was admitted. The patient was NPO status with IV fluids and empiric antibiotics. The patient subsequently undergone on the 11/30/2016 emergency exploratory laparotomy with small bowel resection. Course of recovery was uneventful. Initially kept NPO with NG tube to suction and IV fluids as well as the IV antibiotics. Aerobic fluid culture revealed E. coli, Klebsiella, and Strep alpha hemolytic. Pathology of the surgical specimen revealed no vasculitis and no malignancy. Leukocytosis resolved. No fever. Subsequently, bowel sounds returned. NG tube discontinued. The patient started on liquid diet, which gradually advanced to soft. The patient was able to tolerate diet. The patient ambulated and voided freely. Leukocytosis resolved, afebrile. Incision healing well. Blood pressure was controlled with the current regimen of calcium channel margaret and ARB. The patient was stable for discharge home as cleared by surgeon. DISCHARGE DIAGNOSES: 1. Perforated viscus 2. Status post exploratory laparotomy with small bowel resection. 3. Postoperative pain, controlled. 4.. Hypertension. DISCHARGE MEDICATIONS: See medication reconciliation list. The patient status post treatment with antibiotics. Script for analgesics provided. DISCHARGE INSTRUCTIONS: The patient discharged home. Follow up with the surgeon as outpatient as set up by Dr. Gandhi. Ronen Childers M.D. I have been assigned to dictate discharge summary on this account and I was not involved in the patient's management. Rohini Sheppard N.P. ([place]anchtein) DR: Varsha JOB#: [id number] CC: LAURA
== END 2016-12-06 16:10 | disposition home or self-care (01) | DRG 221 ==
LOC: EMR 11:00 → UNDOFXSDCACCOM 14:20 → UNDOFXSDCSVC 14:20 → SDS 14:20 → 3E 14:20 → EDBEDREQ 15:27 → EDBEDREQSVC 15:27 → EDBEDREQTM 18:24 → SDS 20:40 → 3E 20:40
PROC: 0DB80ZZ Excision of Small Intestine, Open Approach (ICD-10-PCS; principal; 2016-11-30 15:17)
DX: K57.00 Diverticulitis of small intestine with perforation and abscess without bleeding (principal); I10 Essential (primary) hypertension; E11.9 Type 2 diabetes mellitus without complications; E78.00 Pure hypercholesterolemia, unspecified
CPT/HCPCS: 36415; 74177; 80048; 80053; 81003; 82962; 83036; 83690; 84484; 85025; 87070; 87075; 87181; 87205; 93005; 94003; 94150; J1815; J2250; J2405; J2710

== ENCOUNTER 2017-08-01 20:01 | Emergency (ER) | payer MEDICAID ==
[~2017-08-01] VITALS: Ht 144.8 cm; Wt 48.5 kg
[~2017-08-01 20:01] MED LIST: ACETAMINOPHEN-1 EAC1 ORAL; ATORVASTATIN CA20 MG ORAL; CLONIDINE0.1 MG ORAL; CLONIDINE1 EAC1 TD; DILTIAZEM 24HR180 M1 ORAL; FAMOTIDINE20 MG ORAL; LOSARTAN POTASS25 M1 PO; METFORMIN HCL500 M5 PO
[2017-08-01] MEDS ORDERED: METFORMIN HCL500 M1 ORAL (20:26)
[2017-08-01] MEDS ORDERED: HYDROCHLOROTHIA25 MG ORAL (20:26)
[2017-08-01] MEDS ORDERED: VITAMIN D400 INTLU ORAL (20:26)
[2017-08-01] MEDS ORDERED: ATORVASTATIN CA20 MG ORAL (20:26)
[2017-08-01] MEDS ORDERED: BACITRACIN ZIN1 EACH TOPIC (21:17)
[2017-08-01] MEDS ORDERED: KEFLEX500 MG ORAL (21:17)
[2017-08-01 21:30] VITALS: BP 199/95
[2017-08-01] MEDS ORDERED: Bacitracin Oint UD TOPIC ONE (21:30)
--- NOTE | 2017-08-01 22:00 | Emergency Room Report ---
History of Present Illness General Chief Complaint: Lower Extremity Injury Source: Patient Present Illness HPI Patient 67-year-old female presented after increased pain to her left lower extremity. The patient reported having injury to her left leg approximately 2 weeks ago. Patient is diabetic. She reports having some slight increased erythema to the left lower extremity around the area wound. She denies having a fever. She denied any discharge from the wound. She noticed some mild erythema surrounding the area. This had not progressed. Patient had been using triple antibiotic ointment. Allergies: Coded Allergies: No Known Allergies (Unverified , 11/30/16) Patient History Past Medical History: see triage record Last Menstrual Period: none Now: No Nursing Documentation-PMH Hx Cardiac Problems: No Hx Hypertension: Yes - hyperlipidemia Hx Diabetes: Yes Hx Cancer: No Hx Neurological Problems: No Review of Systems All Other Systems: negative except mentioned in HPI Physical Exam Vital Signs Date Time Temp Pulse Resp B/P (MAP) Pulse Ox O2 Delivery O2 Flow Rate FiO2 08/01/17 20:14 97.9 100 18 199/95 100 Room Air General Appearance: well appearing, no apparent distress, alert, GCS 15 Head: normocephalic, atraumatic ENT: hearing grossly normal, normal voice Neck: full range of motion, supple Respiratory: no respiratory distress, speaking full sentences Gastrointestinal: normal inspection, non tender, soft Musculoskeletal: no calf tenderness Neurologic: normal inspection, alert, oriented x3, normal gait Psychiatric: mood/affect normal Skin: other - healing ulcer to anterior leg with slight surrounding erythema, no absess or fluctance Medical Decision Making Diagnostic Impression: Primary Impression: Leg wound, left ER Course Patient presented for lower extremity pain. Differential diagnoses included fracture, osteomyelitis, abscess, among others. Patient's benign exam and does not appear to require any laboratory testing at this time. X-ray imaging of the left leg to these interpreted by me showed normal bony alignment without fracture. The patient given prescription for Keflex as well as bacitracin. The patient was advised of have wound recheck with her primary care physician in the next few days. The patient is advised to return if she began increased erythema fever or other concerns. Last Vital Signs Date Time Temp Pulse Resp B/P (MAP) Pulse Ox O2 Delivery O2 Flow Rate FiO2 08/01/17 21:30 97.9 18 199/95 100 Room Air 08/01/17 20:14 100 Status: improved Disposition: HOME, SELF-CARE Condition: Stable Scripts Bacitracin Zinc* (BACITRACIN ZINC*) 1 Each Packet 1 APPLIC TOPIC THREE TIMES A DAY, #14 PACKET Prov: Jose E Rosario 08/01/17 Cephalexin* (KEFLEX*) 500 Mg Capsule 500 MG ORAL Q6H, #28 CAP 0 Refills Prov: Jose E Rosario 08/01/17 Patient Instructions: Skin Ulcer Jose E Rosario Aug 01, 2017 22:00
--- NOTE | 2017-08-02 11:56 | Diagnostic Imaging Report ---
Indication: Pain Comparison: None Findings: Two views of the left tibia and fibula were obtained. No acute fracture, malalignment, or periosteal reaction are identified. Soft tissues are unremarkable. Impression: Negative examination of the tibia and fibula
== END 2017-08-01 21:30 | disposition home or self-care (01) ==
LOC: EMR 20:42
DX: L97.929 Non-pressure chronic ulcer of unspecified part of left lower leg with unspecified severity (principal); E11.9 Type 2 diabetes mellitus without complications; E78.5 Hyperlipidemia, unspecified
CPT/HCPCS: 99284

== ENCOUNTER 2018-05-06 01:10 | Inpatient (IN) | payer MEDICAID ==
[2018-05-06] VITALS (14 sets, daily range): BP systolic 98–171; BP diastolic 41–95
[~2018-05-06] VITALS: Ht 147.3 cm; Wt 62.6 kg
[~2018-05-06 01:10] MED LIST changes: +BACITRACIN ZIN1 EACH TOPIC; +HYDROCHLOROTHIA25 MG ORAL; +KEFLEX500 MG ORAL; +METFORMIN HCL500 M1 ORAL; +VITAMIN D400 INTLU ORAL
[2018-05-06] MEDS ORDERED: Sodium Chloride 500ML 500 ML IV ONE (01:31)
[2018-05-06] MEDS ORDERED: Isovue-300 100ml vial INJ PRN (01:45)
[2018-05-06] MEDS ORDERED: Morphine Sulfate 4mg/ml Inj (IV USE ONLY) IVP ONE ×2 (01:45→03:30)
[2018-05-06] MEDS ORDERED: Morphine Sulfate 4mg/ml Inj (IV USE ONLY) ONE (01:57)
[2018-05-06 02:11] LABS: BASOPHILS % (AUTO) 0.3 % (0.0-2.0); EOSINOPHILS % (AUTO) 0.1 % (0.0-3.0); HEMATOCRIT 41.2 % (37.0-47.0); HEMOGLOBIN 12.7 G/DL (12.0-16.0); LYMPHOCYTES % (AUTO) 10.3 % (20.0-45.0); MEAN CORPUSCULAR VOLUME 74 FL (80-99); MONOCYTES % (AUTO) 4.9 % (1.0-10.0); NEUTROPHILS % (AUTO) 84.4 % (45.0-75.0); PLATELET COUNT 351 K/UL (150-450); RED BLOOD COUNT 5.57 M/UL (4.20-5.40); RED CELL DISTRIBUTION WIDTH 14.1 % (11.6-14.8); WHITE BLOOD COUNT 12.1 K/UL (4.8-10.8)
[2018-05-06 02:15] LABS: ANION GAP 10 mmol/L (5-15); BLOOD UREA NITROGEN 14 mg/dL (7-18); CALCIUM 9.1 MG/DL (8.5-10.1); CARBON DIOXIDE 26 MMOL/L (21-32); CHLORIDE 97 MMOL/L (98-107); CREATININE 0.7 MG/DL (0.55-1.30); POTASSIUM 3.5 MMOL/L (3.5-5.1); SODIUM 133 MMOL/L (136-145)
[2018-05-06 02:20] LABS: ALANINE AMINOTRANSFERASE 36 U/L (12-78); ALBUMIN 3.7 G/DL (3.4-5.0); ALBUMIN/GLOBULIN RATIO 1.1 (1.0-2.7); ALKALINE PHOSPHATASE 50 U/L (46-116); ASPARTATE AMINO TRANSFERASE 22 U/L (15-37); BILIRUBIN,TOTAL 0.4 MG/DL (0.2-1.0)
[2018-05-06] MEDS ORDERED: LR 1000ml 1,000 ML IV SCH ×2 (04:15→08:00)
[2018-05-06] MEDS ORDERED: Piperacillin/Tazobactam 3.375 GM in NS 110 ML IVPB ONE (04:15)
[2018-05-06] MEDS ORDERED: Zosyn 3.375gm inj ONE (04:26)
[2018-05-06] MEDS ORDERED: ASPIR 8181 MG ORAL (04:44)
[2018-05-06] MEDS ORDERED: TACTINAL325 MG PO (04:44)
--- NOTE | 2018-05-06 04:50 | Emergency Room Report ---
History of Present Illness General Chief Complaint: Abdominal Pain Source: Patient, Family Member Present Illness HPI 68-year-old female presents ED complaining of abdominal pain. Started approximately one week ago. Epigastric, sharp, 10 out of 10, nonradiating. Notes history of prior surgery last year to her abdomen. Denies chest pain or shortness of breath. Denies fevers chills. Denies nausea or vomiting. No other aggravating or relieving factors. Denies any other associated symptoms Allergies: Coded Allergies: No Known Allergies (Unverified , 11/30/16) Patient History Past Medical History: DM Past Surgical History: other - exlap, bowel resection Pertinent Family History: none Social History: Denies: smoking, alcohol use, drug use Now: No Immunizations: UTD Reviewed Nursing Documentation: PMH: Agreed; PSxH: Agreed Nursing Documentation-PMH Hx Cardiac Problems: No Hx Hypertension: Yes - hyperlipidemia Hx Diabetes: Yes Hx Cancer: No Hx Gastrointestinal Problems: Yes - BOWEL RESECTION,NOV 2016 Hx Neurological Problems: No Review of Systems All Other Systems: negative except mentioned in HPI Physical Exam Vital Signs Date Time Temp Pulse Resp B/P (MAP) Pulse Ox O2 Delivery O2 Flow Rate FiO2 05/06/18 01:14 98.5 75 16 198/90 95 Room Air 98.4 Sp02 EP Interpretation: reviewed, normal General Appearance: alert, GCS 15, non-toxic, mild distress Head: normocephalic, atraumatic Eyes: bilateral eye normal inspection, bilateral eye PERRL ENT: hearing grossly normal, normal pharynx, no angioedema, normal voice Neck: full range of motion, supple/symm/no masses Respiratory: chest non-tender, lungs clear, normal breath sounds, speaking full sentences Cardiovascular #1: regular rate, rhythm, no edema Cardiovascular #2: 2+ carotid (R), 2+ carotid (L), 2+ radial (R), 2+ radial (L) , 2+ dorsalis pedis (R), 2+ dorsalis pedis (L) Gastrointestinal: normal bowel sounds, soft, non-distended, guarding, tenderness - epigastric Rectal: deferred Genitourinary: normal inspection, no CVA tenderness Musculoskeletal: back normal, gait/station normal, normal range of motion, non- tender Neurologic: alert, oriented x3, responsive, motor strength/tone normal, sensory intact, speech normal Psychiatric: judgement/insight normal, memory normal, mood/affect normal, no suicidal/homicidal ideation Reflexes: 3+ bicep (R), 3+ bicep (L), 3+ tricep (R), 3+ tricep (L), 3+ knee (R) , 3+ knee (L) Skin: normal color, no rash, warm/dry, well hydrated Lymphatic: no adenopathy Medical Decision Making Diagnostic Impression: Primary Impression: Perforated gastric ulcer Qualified Codes: K25.1 - Acute gastric ulcer with perforation Additional Impression: Pneumoperitoneum ER Course Hospital Course 68-year-old female presents to ED with abdominal pain. history of bowel resection Differential diagnoses include: BPH, cystitis, pyelonephritis, kidney stone,SBO Clinical course Patient placed on stretcher. supervisor extrusion. After initial history and physical I ordered labs, IV fluids, UA, pain medication and CT scan Labs - noted leukocytosis, Hb/Hct stable. electrolytes ok. CT abdomen and pelvis - pneumoperitoneum secondary to perforated gastric ulcer Zosyn given. LR given. Patient made nothing by mouth Case discussed with Dr. Martinez and he agreed to accept the patient to his service for further care and support. Dr. Henley agreed to consult on case I feel this is a highly complex case requiring extensive working including EKG/ Rhythm strip, Xray/CT/US, Blood/urine lab work, repeat exams while in ED, and administration of strong opiates/narcotics for pain control, admission to hospital or close patient follow up. Diagnosis - perforated gastric ulcer, pneumoperitoneum Patient admitted to floor in serious condition Labs Test 05/06/18 01:50 White Blood Count 12.1 K/UL (4.8-10.8) Red Blood Count 5.57 M/UL (4.20-5.40) Hemoglobin 12.7 G/DL (12.0-16.0) Hematocrit 41.2 % (37.0-47.0) Mean Corpuscular Volume 74 FL (80-99) Mean Corpuscular Hemoglobin 22.8 PG (27.0-31.0) Mean Corpuscular Hemoglobin Concent 30.8 G/DL (32.0-36.0) Red Cell Distribution Width 14.1 % (11.6-14.8) Platelet Count 351 K/UL (150-450) Mean Platelet Volume 6.1 FL (6.5-10.1) Neutrophils (%) (Auto) 84.4 % (45.0-75.0) Lymphocytes (%) (Auto) 10.3 % (20.0-45.0) Monocytes (%) (Auto) 4.9 % (1.0-10.0) Eosinophils (%) (Auto) 0.1 % (0.0-3.0) Basophils (%) (Auto) 0.3 % (0.0-2.0) Sodium Level 133 MMOL/L (136-145) Potassium Level 3.5 MMOL/L (3.5-5.1) Chloride Level 97 MMOL/L (98-107) Carbon Dioxide Level 26 MMOL/L (21-32) Anion Gap 10 mmol/L (5-15) Blood Urea Nitrogen 14 mg/dL (7-18) Creatinine 0.7 MG/DL (0.55-1.30) Estimat Glomerular Filtration Rate > 60 mL/min (>60) Glucose Level 203 MG/DL (74-106) Calcium Level 9.1 MG/DL (8.5-10.1) Total Bilirubin 0.4 MG/DL (0.2-1.0) Aspartate Amino Transf (AST/SGOT) 22 U/L (15-37) Alanine Aminotransferase (ALT/SGPT) 36 U/L (12-78) Alkaline Phosphatase 50 U/L (46-116) Total Protein 7.1 G/DL (6.4-8.2) Albumin 3.7 G/DL (3.4-5.0) Globulin 3.4 g/dL Albumin/Globulin Ratio 1.1 (1.0-2.7) Lipase 252 U/L (73-393) CT/MRI/US Diagnostic Results CT/MRI/US Diagnostic Results : Imaging Test Ordered: CT A/P Impression Moderate pneumoperitoneum scattered throughout the upper abdomen likely related to a perforated antral gastric ulcer (series 5, image 36). Surgical consultation recommended. Small/moderate scattered free fluid without focal peripherally enhancing fluid collection or small bowel obstruction. Last Vital Signs Date Time Temp Pulse Resp B/P (MAP) Pulse Ox O2 Delivery O2 Flow Rate FiO2 05/06/18 03:35 98.5 05/06/18 01:14 75 16 198/90 95 Room Air Status: improved Disposition: ADMITTED INPATIENT Condition: Serious Referrals: NOT CHOSEN IPA/,REFERRING (PCP) Vinayak Ahn MD May 06, 2018 04:50
[2018-05-06] MEDS ORDERED: dilTIAZem HCl 25mg/5ml Inj ONE (04:52)
[2018-05-06] MEDS ORDERED: dilTIAZem HCl 25mg/5ml Inj IVP ONE (05:00)
[2018-05-06] MEDS ORDERED: Morphine Sulfate 2mg/ml Inj(IV/IM USE ONLY) IVP PRN (06:45)
[2018-05-06] MEDS ORDERED: Morphine Sulfate 4mg/ml Inj (IV USE ONLY) IVP PRN (06:45)
--- NOTE | 2018-05-06 08:09 | Pre-Procedure Note/Attestation ---
Pre-Procedure Note/Attestation Complete Prior to Procedure Planned Procedure: not applicable Procedure Narrative: exploratory laparotomy, possible bowel resection, possible ostomy Indications for Procedure Pre-Operative Diagnosis: perforated abdominal viscus Attestation I attest that I discussed the nature of the procedure; its benefits; risks and complications; and alternatives (and the risks and benefits of such alternatives ), prior to the procedure, with the patient (or the patient's legal client relations representative). I attest that, if there was a reasonable possibility of needing a blood transfusion, the patient (or the patient's legal client relations representative) was given the [facility] standardized written summary, pursuant to the Samuel Heidi Blood Safety Act ([place] Health and Safety Code # 1645, as amended). I attest that I re-evaluated the patient just prior to the surgery and that there has been no change in the patient's H&P, except as documented below: Ken Henley May 06, 2018 08:08
[2018-05-06] MEDS: Pantoprazole Inj IVP SCH ×2 (09:00→20:30)
[2018-05-06] MEDS: dilTIAZem HCl CD 180mg cap ORAL SCH ×2 (09:00→20:57)
[2018-05-06] MEDS ORDERED: Piperacillin/Tazobactam 3.375 GM in D5W 110 ML IVPB SCH (09:00)
[2018-05-06] MEDS: Losartan 25mg tab ORAL SCH (09:00)
--- NOTE | 2018-05-06 09:18 | Consultation ---
History of Present Illness General Date patient seen: May 06, 2018 Chief Complaint: Abdominal Pain Reason for Consultation: perforated abdominal viscus Present Illness HPI 68 year old female presented to ED with complaints of worsening abdominal pain x 1 week. states that she first noted pain 1 week ago and has been slowly worsening. pain sharp cramping upper abdominal discomfort. +nausea. In ED had CT which demonstrated perforated abdominal viscus likely gastric. of note, patient known to me from prior visit. she presented with SBO last year and was operated on by my colleague Dr. Childers. surgery called to evaluate. patient seen, chart reviewed, patient examined. Allergies: Coded Allergies: No Known Allergies (Unverified , 11/30/16) Medication History Scheduled Aspirin* (Aspir 81*), 81 MG ORAL DAILY, (Reported) Atorvastatin Calcium* (Atorvastatin Calcium*), 20 MG ORAL BEDTIME, (Reported) Bacitracin Zinc* (Bacitracin Zinc*), 1 APPLIC TOPIC THREE TIMES A DAY Cephalexin* (Keflex*), 500 MG ORAL Q6H Clonidine HCl (Clonidine HCl), 0.1 MG ORAL BEDTIME, (Reported) Diltiazem Hcl (Diltiazem 24HR Er), 180 MG ORAL TWICE A DAY, (Reported) Hydrochlorothiazide* (Hydrochlorothiazide*), 25 MG ORAL DAILY, (Reported) Losartan Potassium (Losartan Potassium), 100 MG PO DAILY, (Reported) Metformin Hcl* (Metformin Hcl*), 500 MG ORAL TWICE A DAY, (Reported) Vitamin D (Vitamin D3), 2,000 UNITS ORAL DAILY, (Reported) Scheduled PRN Acetaminophen With Codeine (T#3) (Tylenol #3 Tab*), 1 TAB ORAL Q4H PRN for For Pain, (Reported) Miscellaneous Medications Acetaminophen (Tactinal), 325 MG PO, (Reported) Patient History History Provided By: Patient, Medical Record, PMD Healthcare decision maker Resuscitation status Advanced Directive on File No Past Medical/Surgical History Past Medical/Surgical History: (1) Leg wound, left (2) Pneumoperitoneum (3) Perforated gastric ulcer Review of Systems All Other Systems: negative except mentioned in HPI Physical Exam General Appearance: mild distress Lines, tubes and drains: peripheral HEENT: mucous membranes moist Neck: normal inspection Respiratory/Chest: normal breath sounds, no respiratory distress, no accessory muscle use Cardiovascular/Chest: normal rate Abdomen: soft, no organomegaly, no mass, distended, guarding, rebound, tender Extremities: normal inspection Skin Exam: normal pigmentation Neurologic: alert, oriented x 3 Last 24 Hour Vital Signs Date Time Temp Pulse Resp B/P (MAP) Pulse Ox O2 Delivery O2 Flow Rate FiO2 05/06/18 08:00 98.2 115 20 121/95 (104) 96 98.2 05/06/18 05:57 Room Air 05/06/18 05:13 98.3 86 16 148/56 95 Nasal Cannula 2.0 98.3 05/06/18 05:04 98.3 86 16 148/56 95 Nasal Cannula 2.0 98.3 05/06/18 04:55 98.3 107 16 171/61 94 Nasal Cannula 2.0 98.3 05/06/18 04:54 103 171/61 05/06/18 03:35 98.5 05/06/18 03:30 98.3 05/06/18 03:30 98.3 05/06/18 02:05 98.5 05/06/18 01:14 98.5 75 16 198/90 95 Room Air 98.4 Intake and Output 05/05/18 05/06/18 19:00 07:00 Intake Total 610 ml Balance 610 ml Intake Oral 0 ml IV Total 610 ml Laboratory Tests Test 05/06/18 01:50 05/06/18 07:50 White Blood Count 12.1 K/UL (4.8-10.8) H Red Blood Count 5.57 M/UL (4.20-5.40) H Hemoglobin 12.7 G/DL (12.0-16.0) Hematocrit 41.2 % (37.0-47.0) Mean Corpuscular Volume 74 FL (80-99) L Mean Corpuscular Hemoglobin 22.8 PG (27.0-31.0) L Mean Corpuscular Hemoglobin Concent 30.8 G/DL (32.0-36.0) L Red Cell Distribution Width 14.1 % (11.6-14.8) Platelet Count 351 K/UL (150-450) Mean Platelet Volume 6.1 FL (6.5-10.1) L Neutrophils (%) (Auto) 84.4 % (45.0-75.0) H Lymphocytes (%) (Auto) 10.3 % (20.0-45.0) L Monocytes (%) (Auto) 4.9 % (1.0-10.0) Eosinophils (%) (Auto) 0.1 % (0.0-3.0) Basophils (%) (Auto) 0.3 % (0.0-2.0) Sodium Level 133 MMOL/L (136-145) L Potassium Level 3.5 MMOL/L (3.5-5.1) Chloride Level 97 MMOL/L (98-107) L Carbon Dioxide Level 26 MMOL/L (21-32) Anion Gap 10 mmol/L (5-15) Blood Urea Nitrogen 14 mg/dL (7-18) Creatinine 0.7 MG/DL (0.55-1.30) Estimat Glomerular Filtration Rate > 60 mL/min (>60) Glucose Level 203 MG/DL (74-106) H Calcium Level 9.1 MG/DL (8.5-10.1) Total Bilirubin 0.4 MG/DL (0.2-1.0) Aspartate Amino Transf (AST/SGOT) 22 U/L (15-37) Alanine Aminotransferase (ALT/SGPT) 36 U/L (12-78) Alkaline Phosphatase 50 U/L (46-116) Total Protein 7.1 G/DL (6.4-8.2) Albumin 3.7 G/DL (3.4-5.0) Globulin 3.4 g/dL Albumin/Globulin Ratio 1.1 (1.0-2.7) Lipase 252 U/L (73-393) Prothrombin Time 10.2 SEC (9.30-11.50) Prothromb Time International Ratio 1.0 (0.9-1.1) Activated Partial Thromboplast Time 23 SEC (23-33) Height (Feet): 4 Height (Inches): 10.00 Weight (Pounds): 110 Medications Current Medications Medications (Trade) Dose Ordered Sig/Raghav Route PRN Reason Start Time Stop Time Status Last Admin Dose Admin Clonidine HCl (Catapres Tab) 0.1 mg Q6H PRN ORAL For High Blood Pressure 05/06/18 06:45 06/05/18 06:44 Dextrose (Dextrose 50%) 25 ml STAT PRN IV Hypoglycemia 05/06/18 06:45 06/05/18 06:44 Dextrose (Dextrose 50%) 50 ml STAT PRN IV Hypoglycemia 05/06/18 06:45 06/05/18 06:44 Diltiazem HCl (Cardizem CD) 180 mg Q12HR ORAL 05/06/18 09:00 06/05/18 08:59 Insulin Aspart (NovoLOG) EVERY 6 HOURS SUBQ 05/06/18 12:00 06/05/18 11:59 Iopamidol (Isovue-300 100ml) 100 ml NOW PRN INJ Radiology Procedure 05/06/18 01:45 Lactated Ringer's 1,000 ml @ 100 mls/hr Q10H IV 05/06/18 04:15 06/05/18 04:14 05/06/18 04:39 Losartan Potassium (Cozaar) 100 mg DAILY ORAL 05/06/18 09:00 06/05/18 08:59 Morphine Sulfate (Morphine Sulfate) 2 mg Q4H PRN IVP PAIN (1-6) 05/06/18 06:45 05/13/18 06:44 Morphine Sulfate (Morphine Sulfate) 4 mg Q4H PRN IVP Severe Pain (Pain Scale 7-10) 05/06/18 06:45 05/13/18 06:44 Ondansetron HCl (Zofran) 4 mg Q4H PRN IVP Nausea & Vomiting 05/06/18 06:45 06/05/18 06:44 Pantoprazole (Protonix) 40 mg EVERY 12 HOURS IVP 05/06/18 09:00 06/05/18 08:59 Piperacillin Sod/ Tazobactam Sod 3.375 gm/Dextrose 110 ml @ 27.5 mls/hr Q8H IVPB 05/06/18 09:00 05/13/18 08:59 Assessment/Plan Problem List: (1) Perforated gastric ulcer Assessment & Plan: 68F likely perforated gastric ulcer. -NPO -IV fluids -Consent -TO OR TYLOR For exploration. unfortunately given large prior abdominal surgical scar will proceed directly with exploration. -IV Abx thank you ICD Codes: K25.5 - Chronic or unspecified gastric ulcer with perforation SNOMED: [id number] Qualifiers: Qualified Codes: K25.1 - Acute gastric ulcer with perforation Status: not improved, unchanged Ken Henley May 06, 2018 09:18
--- NOTE | 2018-05-06 09:52 | Diagnostic Imaging Report ---
Clinical Indication: Abdominal pain for 3 days Technique: No oral contrast utilized, per emergency room physician request IV administration nonionic contrast. Venous phase spiral acquisition obtained through the abdomen and pelvis. Multiplanar reconstructions were generated. Total dose length product 509.35 mGycm. CTDIvol(s) 10.85 mGy. Dose reduction achieved using automated exposure control Comparison: 11/30/2016 Findings: Interim development of free intraperitoneal gas. Gas bubbles are also seen in the lesser sac There is edema of the gastric wall as well as a small gas and fluid collection within the gastric wall. A small amount of free intraperitoneal fluid is seen over the liver, spleen, in the pelvis, and in the left paracolic gutter. There has been interim small bowel surgery, with an anastomosis at the site of possible small bowel microperforation demonstrated previously. There is interim development of broad-based diastasis of the rectus abdominis muscle. A large proximal jejunal diverticulum is again demonstrated. No evidence of diverticulosis or diverticulitis. The appendix is normal. No small bowel distention. The liver again demonstrates a subcentimeter low-attenuation lesion in the dome which is too small to characterize. The gallbladder, bile ducts, pancreas, spleen, adrenals are unremarkable. The kidneys demonstrate bilateral subcentimeter low-attenuation lesions which are too small to characterize. The right kidney demonstrates several wedge-shaped peripheral areas of decreased attenuation which are not clearly evident on the prior exam The uterus demonstrates numerous small calcifications. No pelvic or retroperitoneal or mesenteric mass or adenopathy. The bones are unremarkable except for mild degenerative spondylosis changes of the lower lumbar spine and mild scoliotic deformity. The included lung bases demonstrate bilateral basilar interstitial septal thickening and compressive atelectasis. The heart is mildly enlarged. Impression: Pneumoperitoneum indicative of perforated hollow viscus. Most likely a perforated gastric ulcer, as there does appear to be a small mural gas and fluid collection within the gastric antrum as well as generalized wall thickening of the gastric wall.. Free intraperitoneal fluid, presumably secondary to the above Evidence of interim small bowel surgery for previously demonstrated small bowel perforation Peripheral wedge-shaped areas of decreased attenuation in the right kidney, not evident previously. These raise concern for focal areas of nephritis or small infarcts Renal and right lobe liver subcentimeter low-attenuation lesions which are too small to characterize, most likely benign simple cysts. No further follow-up necessary Bilateral basilar pulmonary interstitial septal thickening, acuity indeterminate. There are also compressive atelectatic changes Cardiomegaly Other findings as noted, including degenerative spondylosis, likely old degenerated calcified uterine fibroids, large proximal jejunal diverticulum, broad-based diastasis of the rectus abdominis muscle This agrees with the preliminary interpretation provided overnight by [facility] teleradiology service. The CT scanner at [facility] is accredited by the [employer] and the scans are performed using protocols designed to limit radiation exposure to as low as reasonably achievable to attain images of sufficient resolution adequate for diagnostic evaluation.
[2018-05-06] MEDS: Piperacillin/Tazobactam 3.375 GM in D5W 110 ML IVPB SCH ×2 (09:53→18:40)
--- NOTE | 2018-05-06 11:45 | Anethesia Preoperative Eval ---
Anesthesia Pre-op PMH/ROS General Date of Evaluation: May 06, 2018 Anesthesiologist: Eriberto ASA Score: ASA 3 - E Mallampati Score Class I : Soft palate, uvula, fauces, pillars visible Class II: Soft palate, uvula, fauces visible Class III: Soft palate, base of uvula visible Class IV: Only hard plate visible Mallampati Classification: Class II Surgeon: Kale Diagnosis: PErforated viscus Surgical Procedure: Exploratory laparotomy Anesthesia History: none Family History: no anesthesia problems Allergies: Coded Allergies: No Known Allergies (Unverified , 11/30/16) Medications: see eMAR Past Medical History Cardiovascular: Reports: HTN, other - HLD; Denies: CAD, SD, valve dz, arrhythmia Pulmonary: Denies: asthma, COPD, KELLY, other Gastrointestinal/Genitourinary: Reports: other - perforated ulcer; Denies: GERD, CRI, ESRD Neurologic/Psychiatric: Denies: dementia, CVA, depression/anxiety, TIA, other Endocrine: Reports: DM; Denies: hypothyroidism, steroids, other HEENT: Denies: cataract (L), cataract (R), glaucoma, MOAPA (L), MOAPA (R), other Hematology/Immune: Denies: anemia, DVT, bleeding disorder, other Musculoskeletal/Integumentary: Denies: OA, RA, DJD, DDD, edema, other PSxH Narrative: ex-lap, small bowel resection in 2017 Anesthesia Pre-op Phys. Exam Physician Exam Last Vital Signs Date Time Temp Pulse Resp B/P (MAP) Pulse Ox O2 Delivery O2 Flow Rate FiO2 05/06/18 08:15 Room Air 05/06/18 08:00 98.2 115 20 121/95 (104) 96 98.2 05/06/18 05:13 2.0 Constitutional: NAD Cardiovascular: other - tachy Respiratory: CTA Airway Exam Mallampati Score: Class II MO: full ROM: full Anesthesia Pre-op A/P Labs Hematology Test 05/06/18 01:50 White Blood Count 12.1 K/UL (4.8-10.8) H Red Blood Count 5.57 M/UL (4.20-5.40) H Hemoglobin 12.7 G/DL (12.0-16.0) Hematocrit 41.2 % (37.0-47.0) Mean Corpuscular Volume 74 FL (80-99) L Mean Corpuscular Hemoglobin 22.8 PG (27.0-31.0) L Mean Corpuscular Hemoglobin Concent 30.8 G/DL (32.0-36.0) L Red Cell Distribution Width 14.1 % (11.6-14.8) Platelet Count 351 K/UL (150-450) Mean Platelet Volume 6.1 FL (6.5-10.1) L Neutrophils (%) (Auto) 84.4 % (45.0-75.0) H Lymphocytes (%) (Auto) 10.3 % (20.0-45.0) L Monocytes (%) (Auto) 4.9 % (1.0-10.0) Eosinophils (%) (Auto) 0.1 % (0.0-3.0) Basophils (%) (Auto) 0.3 % (0.0-2.0) Coagulation Test 05/06/18 07:50 Prothrombin Time 10.2 SEC (9.30-11.50) Prothromb Time International Ratio 1.0 (0.9-1.1) Activated Partial Thromboplast Time 23 SEC (23-33) Chemistry Test 05/06/18 01:50 Sodium Level 133 MMOL/L (136-145) L Potassium Level 3.5 MMOL/L (3.5-5.1) Chloride Level 97 MMOL/L (98-107) L Carbon Dioxide Level 26 MMOL/L (21-32) Anion Gap 10 mmol/L (5-15) Blood Urea Nitrogen 14 mg/dL (7-18) Creatinine 0.7 MG/DL (0.55-1.30) Estimat Glomerular Filtration Rate > 60 mL/min (>60) Glucose Level 203 MG/DL (74-106) H Calcium Level 9.1 MG/DL (8.5-10.1) Total Bilirubin 0.4 MG/DL (0.2-1.0) Aspartate Amino Transf (AST/SGOT) 22 U/L (15-37) Alanine Aminotransferase (ALT/SGPT) 36 U/L (12-78) Alkaline Phosphatase 50 U/L (46-116) Total Protein 7.1 G/DL (6.4-8.2) Albumin 3.7 G/DL (3.4-5.0) Globulin 3.4 g/dL Albumin/Globulin Ratio 1.1 (1.0-2.7) Lipase 252 U/L (73-393) Studies Pre-op Studies: EKG - sr Risk Assessment & Plan Assessment: ASA IIIE Plan: GA, RSI Status Change Before Surgery: No Pre-Antibiotics Drug: TBKatie Wisdom MD May 06, 2018 11:44
[2018-05-06] MEDS: NovoLOG Insulin Flexpen SUBQ SCH ×3 (12:00→23:56)
[2018-05-06] MEDS ORDERED: Succinylcholine 20mg/ml 10ml vial ONE (13:00)
[2018-05-06] MEDS ORDERED: Sterile Water Irrig 1000ml IRRIG ONE (13:00)
[2018-05-06] MEDS ORDERED: NS Irrig 1000ml ONE (13:00)
[2018-05-06] MEDS ORDERED: Zemuron 50mg/5ml Inj IV ONE (13:00)
[2018-05-06] MEDS ORDERED: LR 1000ml ONE (13:00)
[2018-05-06] MEDS ORDERED: Propofol 200mg/20ml IV ONE (13:07)
[2018-05-06] MEDS ORDERED: Lidocaine 1% MPF 10mg/ml 5ml ONE (13:07)
[2018-05-06] MEDS ORDERED: fentaNYL 100 mcg/2 mL IV ONE ×2 (13:07→15:58)
[2018-05-06] MEDS ORDERED: LR 1000ml 1,000 ML IVLG SCH (13:57)
[2018-05-06] MEDS ORDERED: Hydromorphone 0.5mg/0.5ml inj IVP PRN ×2 (14:00→16:15)
[2018-05-06] MEDS ORDERED: Surgicel 4in x 8in TOPIC ONE (14:00)
[2018-05-06] MEDS ORDERED: fentaNYL 100 mcg/2 mL IV PRN (14:00)
[2018-05-06] MEDS ORDERED: Labetalol 5mg/ml 20ml vial IV PRN (14:00)
[2018-05-06] MEDS ORDERED: DiphenhydrAMINE 50mg/ml Inj IVP PRN ×2 (14:00→16:15)
--- NOTE | 2018-05-06 14:01 | Consultation ---
History of Present Illness General Date patient seen: May 06, 2018 Chief Complaint: Abdominal Pain Reason for Consultation: perforated abdominal viscus Present Illness HPI 68 year old female presented to ED with complaints of worsening abdominal pain x 1 week. the pt has severe form of gastric ulcer. the pt is doing well and the pain is controlled. no depression. some anxiety Allergies: Coded Allergies: No Known Allergies (Unverified , 11/30/16) Medication History Scheduled Aspirin* (Aspir 81*), 81 MG ORAL DAILY, (Reported) Atorvastatin Calcium* (Atorvastatin Calcium*), 20 MG ORAL BEDTIME, (Reported) Bacitracin Zinc* (Bacitracin Zinc*), 1 APPLIC TOPIC THREE TIMES A DAY Cephalexin* (Keflex*), 500 MG ORAL Q6H Clonidine HCl (Clonidine HCl), 0.1 MG ORAL BEDTIME, (Reported) Diltiazem Hcl (Diltiazem 24HR Er), 180 MG ORAL TWICE A DAY, (Reported) Hydrochlorothiazide* (Hydrochlorothiazide*), 25 MG ORAL DAILY, (Reported) Losartan Potassium (Losartan Potassium), 100 MG PO DAILY, (Reported) Metformin Hcl* (Metformin Hcl*), 500 MG ORAL TWICE A DAY, (Reported) Vitamin D (Vitamin D3), 2,000 UNITS ORAL DAILY, (Reported) Scheduled PRN Acetaminophen With Codeine (T#3) (Tylenol #3 Tab*), 1 TAB ORAL Q4H PRN for For Pain, (Reported) Miscellaneous Medications Acetaminophen (Tactinal), 325 MG PO, (Reported) Patient History History Provided By: Patient, Medical Record, PMD Healthcare decision maker Resuscitation status Advanced Directive on File No Past Medical/Surgical History Past Medical/Surgical History: (1) Pneumoperitoneum (2) Leg wound, left (3) Perforated gastric ulcer Review of Systems Psychiatric: Reports: prior hx, anxiety Physical Exam General Appearance: no apparent distress, alert Neurologic: oriented x 3, responsive, depressed affect Last 24 Hour Vital Signs Date Time Temp Pulse Resp B/P (MAP) Pulse Ox O2 Delivery O2 Flow Rate FiO2 05/06/18 12:00 98.6 129 20 129/76 (93) 91 98.6 05/06/18 08:15 Nasal Cannula 2.0 05/06/18 08:00 98.2 115 20 121/95 (104) 96 98.2 05/06/18 05:57 Room Air 05/06/18 05:13 98.3 86 16 148/56 95 Nasal Cannula 2.0 98.3 05/06/18 05:04 98.3 86 16 148/56 95 Nasal Cannula 2.0 98.3 05/06/18 04:55 98.3 107 16 171/61 94 Nasal Cannula 2.0 98.3 05/06/18 04:54 103 171/61 05/06/18 03:35 98.5 05/06/18 03:30 98.3 05/06/18 03:30 98.3 05/06/18 02:05 98.5 05/06/18 01:14 98.5 75 16 198/90 95 Room Air 98.4 Intake and Output 05/05/18 05/06/18 19:00 07:00 Intake Total 610 ml Balance 610 ml Intake Oral 0 ml IV Total 610 ml Laboratory Tests Test 05/06/18 01:50 05/06/18 07:50 White Blood Count 12.1 K/UL (4.8-10.8) H Red Blood Count 5.57 M/UL (4.20-5.40) H Hemoglobin 12.7 G/DL (12.0-16.0) Hematocrit 41.2 % (37.0-47.0) Mean Corpuscular Volume 74 FL (80-99) L Mean Corpuscular Hemoglobin 22.8 PG (27.0-31.0) L Mean Corpuscular Hemoglobin Concent 30.8 G/DL (32.0-36.0) L Red Cell Distribution Width 14.1 % (11.6-14.8) Platelet Count 351 K/UL (150-450) Mean Platelet Volume 6.1 FL (6.5-10.1) L Neutrophils (%) (Auto) 84.4 % (45.0-75.0) H Lymphocytes (%) (Auto) 10.3 % (20.0-45.0) L Monocytes (%) (Auto) 4.9 % (1.0-10.0) Eosinophils (%) (Auto) 0.1 % (0.0-3.0) Basophils (%) (Auto) 0.3 % (0.0-2.0) Sodium Level 133 MMOL/L (136-145) L Potassium Level 3.5 MMOL/L (3.5-5.1) Chloride Level 97 MMOL/L (98-107) L Carbon Dioxide Level 26 MMOL/L (21-32) Anion Gap 10 mmol/L (5-15) Blood Urea Nitrogen 14 mg/dL (7-18) Creatinine 0.7 MG/DL (0.55-1.30) Estimat Glomerular Filtration Rate > 60 mL/min (>60) Glucose Level 203 MG/DL (74-106) H Calcium Level 9.1 MG/DL (8.5-10.1) Total Bilirubin 0.4 MG/DL (0.2-1.0) Aspartate Amino Transf (AST/SGOT) 22 U/L (15-37) Alanine Aminotransferase (ALT/SGPT) 36 U/L (12-78) Alkaline Phosphatase 50 U/L (46-116) Total Protein 7.1 G/DL (6.4-8.2) Albumin 3.7 G/DL (3.4-5.0) Globulin 3.4 g/dL Albumin/Globulin Ratio 1.1 (1.0-2.7) Lipase 252 U/L (73-393) Prothrombin Time 10.2 SEC (9.30-11.50) Prothromb Time International Ratio 1.0 (0.9-1.1) Activated Partial Thromboplast Time 23 SEC (23-33) Height (Feet): 4 Height (Inches): 10.00 Weight (Pounds): 110 Medications Current Medications Medications (Trade) Dose Ordered Sig/Raghav Route PRN Reason Start Time Stop Time Status Last Admin Dose Admin Clonidine HCl (Catapres Tab) 0.1 mg Q6H PRN ORAL For High Blood Pressure 05/06/18 06:45 06/05/18 06:44 Dextrose (Dextrose 50%) 25 ml STAT PRN IV Hypoglycemia 05/06/18 06:45 06/05/18 06:44 Dextrose (Dextrose 50%) 50 ml STAT PRN IV Hypoglycemia 05/06/18 06:45 06/05/18 06:44 Diltiazem HCl (Cardizem CD) 180 mg Q12HR ORAL 05/06/18 09:00 06/05/18 08:59 Fluconazole/ Sodium Chloride 100 ml @ 100 mls/hr Q24H IV 05/06/18 11:00 05/13/18 10:59 05/06/18 12:06 Insulin Aspart (NovoLOG) EVERY 6 HOURS SUBQ 05/06/18 12:00 06/05/18 11:59 Iopamidol (Isovue-300 100ml) 100 ml NOW PRN INJ Radiology Procedure 05/06/18 01:45 Losartan Potassium (Cozaar) 100 mg DAILY ORAL 05/06/18 09:00 06/05/18 08:59 Morphine Sulfate (Morphine Sulfate) 2 mg Q4H PRN IVP PAIN (1-6) 05/06/18 06:45 05/13/18 06:44 Morphine Sulfate (Morphine Sulfate) 4 mg Q4H PRN IVP Severe Pain (Pain Scale 7-10) 05/06/18 06:45 05/13/18 06:44 05/06/18 09:53 Ondansetron HCl (Zofran) 4 mg Q4H PRN IVP Nausea & Vomiting 05/06/18 06:45 06/05/18 06:44 05/06/18 09:59 Pantoprazole (Protonix) 40 mg EVERY 12 HOURS IVP 05/06/18 09:00 06/05/18 08:59 Piperacillin Sod/ Tazobactam Sod 3.375 gm/Dextrose 110 ml @ 27.5 mls/hr Q8H IVPB 05/06/18 09:00 05/13/18 08:59 05/06/18 09:53 Assessment/Plan Status: stable Assessment/Plan anxiety d/o -ativan prFlaquito Anaya MD May 06, 2018 14:01
[2018-05-06] MEDS ORDERED: Phenylephrine 10mg/ml Vial ONE (15:21)
[2018-05-06] MEDS ORDERED: Neostigmine 1mg/ml 10ml Inj ONE (15:30)
[2018-05-06] MEDS ORDERED: Glycopyrrolate 0.2mg/ml 1ml Vial ONE (15:30)
--- NOTE | 2018-05-06 16:11 | Immediate Post-Op Evaluation ---
Immediate Post-Op Evalulation Immediate Post-Op Evalulation Procedure: exploratory laparotomy Date of Evaluation: May 06, 2018 Time of Evaluation: 16:11 IV Fluids: 4L Blood Products: 0 Estimated Blood Loss: 150 Urinary Output: 75 Blood Pressure Systolic: 147 Blood Pressure Diastolic: 62 Pulse Rate: 110 Respiratory Rate: 18 Temperature (Fahrenheit): 99.5 Pain Score (1-10): 0 Nausea: No Vomiting: No Complications 0 Patient Status: awake, reacts, patent, none Hydration Status: adequate Drug: Zosyn and fluconazole Given Within 1 Hr of Incision: Yes Time Given: 13:00 Katie Das MD May 06, 2018 16:11
--- NOTE | 2018-05-06 16:12 | Brief Operative Note ---
Immediate Post Operative Note Operative Note Pre-op Diagnosis: perforated abdominal viscus Procedure: 1. exploratory laparotomy 2. antrectomy with gastrojejunostomy ([place] 2) 3. cholecystectomy 4. omentectomy 5. abdominal washout Post-op Diagnosis: perforated pre pyloric anterior gastric ulcer; large Surgeon: radha Anesthesiologist: phan Anesthesia: general Specimen: yes - 1. perforated ulcer w/ antrectomy, 2. gallbladder, 3. omentum Complications: none Condition: stable Fluids: see records Estimated Blood Loss: volume - 100 Drains: none Implant(s) used?: No Ken Henley May 06, 2018 16:12
[2018-05-06] MEDS ORDERED: Acetaminophen 650 MG SUPP RECTAL PRN (16:15)
--- NOTE | 2018-05-06 17:45 | History & Physical ---
History and Physical History & Physicial Dictated for Int Med-Dr Martinez no. [id number] Christopher Connor MD May 06, 2018 17:45
--- NOTE | 2018-05-06 17:48 | Consultation ---
History of Present Illness General Date patient seen: May 06, 2018 Chief Complaint: Abdominal Pain Reason for Consultation: perforated abdominal viscus Present Illness HPI 68 y/o F with hx of Dm2, HLD, SBO s/p surgery 11/2016 presents to ED on 05/06 with 1 week of worsening abd pain; pain described as sharp, cramping, in upper abdomen, 10/10 intensity and associated with nausea. In ED, CT showed perforated abd viscus. Taken to OR today and underwent exp lap, antrectomy with gastrojejunostomy, cholecystectomy, omentectomy and abdominal washout. Found to have perforated large pre pyloric anterior gastric ulcer. Denied CP, SOB, f/c, n/v upon admission. Allergies: Coded Allergies: No Known Allergies (Unverified , 11/30/16) Medication History Scheduled Aspirin* (Aspir 81*), 81 MG ORAL DAILY, (Reported) Atorvastatin Calcium* (Atorvastatin Calcium*), 20 MG ORAL BEDTIME, (Reported) Bacitracin Zinc* (Bacitracin Zinc*), 1 APPLIC TOPIC THREE TIMES A DAY Cephalexin* (Keflex*), 500 MG ORAL Q6H Clonidine HCl (Clonidine HCl), 0.1 MG ORAL BEDTIME, (Reported) Diltiazem Hcl (Diltiazem 24HR Er), 180 MG ORAL TWICE A DAY, (Reported) Hydrochlorothiazide* (Hydrochlorothiazide*), 25 MG ORAL DAILY, (Reported) Losartan Potassium (Losartan Potassium), 100 MG PO DAILY, (Reported) Metformin Hcl* (Metformin Hcl*), 500 MG ORAL TWICE A DAY, (Reported) Vitamin D (Vitamin D3), 2,000 UNITS ORAL DAILY, (Reported) Scheduled PRN Acetaminophen With Codeine (T#3) (Tylenol #3 Tab*), 1 TAB ORAL Q4H PRN for For Pain, (Reported) Miscellaneous Medications Acetaminophen (Tactinal), 325 MG PO, (Reported) Patient History Healthcare decision maker Resuscitation status Advanced Directive on File No Patient History Narrative Pmhx: as above Shx: Denies: smoking, alcohol use, drug use Fhx: non contributory Review of Systems All Other Systems: negative except mentioned in HPI Physical Exam Physical Exam Narrative General Appearance: mild distress Lines, tubes and drains: peripheral HEENT: mucous membranes moist Neck: normal inspection Respiratory/Chest: normal breath sounds, no respiratory distress, no accessory muscle use Cardiovascular/Chest: normal rate Abdomen: soft, no organomegaly, no mass, distended, guarding, rebound, tender Extremities: normal inspection Skin Exam: normal pigmentation Neurologic: alert, oriented x 3 Last 24 Hour Vital Signs Date Time Temp Pulse Resp B/P (MAP) Pulse Ox O2 Delivery O2 Flow Rate FiO2 05/06/18 17:30 99.2 100 24 123/60 90 Nasal Cannula 4 99.2 05/06/18 17:20 98 26 118/57 91 Nasal Cannula 4 05/06/18 17:15 98 26 98/41 90 Nasal Cannula 4 05/06/18 17:00 96 23 101/50 89 Nasal Cannula 4 05/06/18 16:35 97 22 128/52 95 Non-Rebreather 15 05/06/18 16:25 101 22 134/48 91 Non-Rebreather 15 05/06/18 16:15 105 16 150/60 89 Non-Rebreather 15 05/06/18 16:11 211.1 110 18 05/06/18 16:10 106 20 156/59 89 Non-Rebreather 15 05/06/18 16:06 99.5 110 18 147/62 90 Non-Rebreather 15 99.5 05/06/18 12:00 98.6 129 20 129/76 (93) 91 98.6 05/06/18 08:15 Nasal Cannula 2.0 05/06/18 08:00 98.2 115 20 121/95 (104) 96 98.2 05/06/18 05:57 Room Air 05/06/18 05:13 98.3 86 16 148/56 95 Nasal Cannula 2.0 98.3 05/06/18 05:04 98.3 86 16 148/56 95 Nasal Cannula 2.0 98.3 05/06/18 04:55 98.3 107 16 171/61 94 Nasal Cannula 2.0 98.3 05/06/18 04:54 103 171/61 05/06/18 03:35 98.5 05/06/18 03:30 98.3 05/06/18 03:30 98.3 05/06/18 02:05 98.5 05/06/18 01:14 98.5 75 16 198/90 95 Room Air 98.4 Intake and Output 05/05/18 05/06/18 19:00 07:00 Intake Total 610 ml Balance 610 ml Intake Oral 0 ml IV Total 610 ml Laboratory Tests Test 05/06/18 01:50 05/06/18 07:50 White Blood Count 12.1 K/UL (4.8-10.8) H Red Blood Count 5.57 M/UL (4.20-5.40) H Hemoglobin 12.7 G/DL (12.0-16.0) Hematocrit 41.2 % (37.0-47.0) Mean Corpuscular Volume 74 FL (80-99) L Mean Corpuscular Hemoglobin 22.8 PG (27.0-31.0) L Mean Corpuscular Hemoglobin Concent 30.8 G/DL (32.0-36.0) L Red Cell Distribution Width 14.1 % (11.6-14.8) Platelet Count 351 K/UL (150-450) Mean Platelet Volume 6.1 FL (6.5-10.1) L Neutrophils (%) (Auto) 84.4 % (45.0-75.0) H Lymphocytes (%) (Auto) 10.3 % (20.0-45.0) L Monocytes (%) (Auto) 4.9 % (1.0-10.0) Eosinophils (%) (Auto) 0.1 % (0.0-3.0) Basophils (%) (Auto) 0.3 % (0.0-2.0) Sodium Level 133 MMOL/L (136-145) L Potassium Level 3.5 MMOL/L (3.5-5.1) Chloride Level 97 MMOL/L (98-107) L Carbon Dioxide Level 26 MMOL/L (21-32) Anion Gap 10 mmol/L (5-15) Blood Urea Nitrogen 14 mg/dL (7-18) Creatinine 0.7 MG/DL (0.55-1.30) Estimat Glomerular Filtration Rate > 60 mL/min (>60) Glucose Level 203 MG/DL (74-106) H Calcium Level 9.1 MG/DL (8.5-10.1) Total Bilirubin 0.4 MG/DL (0.2-1.0) Aspartate Amino Transf (AST/SGOT) 22 U/L (15-37) Alanine Aminotransferase (ALT/SGPT) 36 U/L (12-78) Alkaline Phosphatase 50 U/L (46-116) Total Protein 7.1 G/DL (6.4-8.2) Albumin 3.7 G/DL (3.4-5.0) Globulin 3.4 g/dL Albumin/Globulin Ratio 1.1 (1.0-2.7) Lipase 252 U/L (73-393) Prothrombin Time 10.2 SEC (9.30-11.50) Prothromb Time International Ratio 1.0 (0.9-1.1) Activated Partial Thromboplast Time 23 SEC (23-33) Height (Feet): 4 Height (Inches): 10.00 Weight (Pounds): 110 Medications Current Medications Medications (Trade) Dose Ordered Sig/Raghav Route PRN Reason Start Time Stop Time Status Last Admin Dose Admin Acetaminophen (Tylenol) 650 mg Q4H PRN RECTAL FEVER 05/06/18 16:15 06/05/18 16:14 Clonidine HCl (Catapres Tab) 0.1 mg Q6H PRN ORAL For High Blood Pressure 05/06/18 06:45 06/05/18 06:44 Dextrose (Dextrose 50%) 25 ml STAT PRN IV Hypoglycemia 05/06/18 06:45 06/05/18 06:44 Dextrose (Dextrose 50%) 50 ml STAT PRN IV Hypoglycemia 05/06/18 06:45 06/05/18 06:44 Dextrose/ Electrolytes 1,000 ml @ 100 mls/hr Q10H IV 05/06/18 17:00 06/05/18 16:59 Diltiazem HCl (Cardizem CD) 180 mg Q12HR ORAL 05/06/18 09:00 06/05/18 08:59 Diphenhydramine HCl (Benadryl) 12.5 mg Q6H PRN IVP Itching/Pruritis 05/06/18 16:15 06/05/18 16:14 Fluconazole/ Sodium Chloride 100 ml @ 100 mls/hr Q24H IV 05/06/18 11:00 05/13/18 10:59 05/06/18 12:06 Heparin Sodium (Porcine) (Heparin 5000 units/ml) 5,000 units EVERY 12 HOURS SUBQ 05/06/18 21:00 06/05/18 20:59 Hydromorphone HCl (Dilaudid) 0.5 mg Q3H PRN IVP Pain Score 1-3 05/06/18 16:15 05/13/18 16:14 Hydromorphone HCl (Dilaudid) 1 mg Q3H PRN IVP pain score 4-6 05/06/18 16:15 05/13/18 16:14 Hydromorphone HCl (Dilaudid) 2 mg Q3H PRN IVP pain score 7-10 05/06/18 16:15 05/13/18 16:14 Insulin Aspart (NovoLOG) EVERY 6 HOURS SUBQ 05/06/18 12:00 06/05/18 11:59 Losartan Potassium (Cozaar) 100 mg DAILY ORAL 05/06/18 09:00 06/05/18 08:59 Ondansetron HCl (Zofran) 4 mg Q6H PRN IVP Nausea & Vomiting 05/06/18 16:15 06/05/18 16:14 Pantoprazole (Protonix) 40 mg EVERY 12 HOURS IVP 05/06/18 09:00 06/05/18 08:59 Piperacillin Sod/ Tazobactam Sod 3.375 gm/Dextrose 110 ml @ 27.5 mls/hr Q8H IVPB 05/06/18 09:00 05/13/18 08:59 05/06/18 09:53 Assessment/Plan Assessment/Plan Abx: Zosyn 05/06- Fluconazole 05/06- Assessment: Perforated gastric ulcer -s/p exp lap, antrectomy with gastrojejunostomy, cholecystectomy, omentectomy and abdominal washout 05/06 -OR findings: large perforated pre pyloric anterior gastric ulcer. -CT abd/p: Pneumoperitoneum indicative of perforated hollow viscus. Most likely a perforated gastric ulcer, as there does appear to be a small mural gas and fluid collection within the gastric antrum as well as generalized wall thickening of the gastric wall. Free intraperitoneal fluid, presumably secondary to the above. Evidence of interim small bowel surgery for previously demonstrated small bowel perforation Peripheral wedge-shaped areas of decreased attenuation in the right kidney, not evident previously. These raise concern for focal areas of nephritis or small infarcts. Renal and right lobe liver subcentimeter low-attenuation lesions which are too small to characterize, most likely benign simple cysts. No further follow-up necessary. Bilateral basilar pulmonary interstitial septal thickening, acuity indeterminate. There are also compressive atelectatic changes Mild leukocytosis, 2ry to above -afebrile Dm2 HLD SBO s/p surgery 11/2016 Plan: -Continue john-op Zosyn and Fluconazole #1 -f/u cx -Monitor CBC/CMP, temperatures -Sx f/u -aspiration precautions -wound care per hosp protocol Thank you for this consultation. Will continue to follow along with you. Discussed with RN and Dr Henley/ Annemarie Linn M.D. May 06, 2018 17:48
[2018-05-06] MEDS: D5 1/2NS w/KCl 20mEq 1,000 ML IV SCH (18:39)
[2018-05-06] MEDS: HYDROmorphone 1mg/ml Carpuject IVP PRN ×2 (19:39→23:50)
[2018-05-06] MEDS: Heparin 5000 units/ml inj SUBQ SCH (20:31)
--- NOTE | 2018-05-06 23:45 | History and Physical Report ---
DATE OF ADMISSION: 05/06/2018 CHIEF COMPLAINT: The patient is a 68-year-old female, who is admitted with a chief complaint of abdominal pain. HISTORY OF PRESENT ILLNESS: The patient has a history of small bowel perforation in November of 2018. The patient is status post small bowel resection in [facility]. The patient states history of present illness began one week prior to admission. The patient began to experience abdominal pain. Pain has increased over the last week. The patient states the pain is epigastric. Pain is now 10/10 in intensity. The patient presented to [facility]. The patient is admitted with abdominal pain to rule out small bowel obstruction versus acute perforation. REVIEW OF SYSTEMS: CONSTITUTIONAL: The patient denies weight loss or weight gain. The patient denies fevers or chills. HEENT: The patient denies ear or throat pain. The patient denies headache. CARDIOVASCULAR: The patient denies palpitations or chest pain. CHEST: The patient denies wheeze or shortness of breath. ABDOMEN: The patient complains of epigastric pain as above. The patient denies nausea, vomiting, diarrhea, or constipation. GENITOURINARY: The patient denies dysuria or increased frequency of urination. NEUROMUSCULAR: The patient denies seizures or generalized weakness. PAST MEDICAL HISTORY: Significant for, 1. Hypertension. 2. Diabetes type 2. 3. Hypercholesterolemia. PAST SURGICAL HISTORY: Significant for, 1. Right knee surgery. 2. Small-bowel resection secondary to perforation as above. CURRENT MEDICATIONS: 1. Tylenol #3 one tablet p.o. q.4 hours p.r.n. 2. Aspirin 81 mg p.o. daily. 3. Atorvastatin 20 mg p.o. at bedtime. 4. Keflex 500 mg p.o. q.6 hours. 5. Clonidine 0.1 mg p.o. at bedtime. 6. Diltiazem ER 180 mg p.o. twice daily. 7. Hydrochlorothiazide 25 mg p.o. daily. 8. Losartan 100 mg p.o. daily. 9. Metformin 500 mg p.o. twice daily. 10. Vitamin D 400 units p.o. daily. ALLERGIES: No known drug allergies. SOCIAL HISTORY: The patient is single. The patient denies tobacco or alcohol use. PHYSICAL EXAMINATION: VITAL SIGNS: Temperature 99.2, respirations 24, pulse 100, and blood pressure 150/60. GENERAL: The patient is a well-developed and well-nourished female, in no apparent distress. HEENT: Eyes, pupils equal and responsive to light and accommodation. Extraocular movements are intact. NECK: Supple without lymphadenopathy. CHEST: Lungs are clear to auscultation bilaterally without wheezes or rales. CARDIOVASCULAR: Regular rhythm and rate. S1 and S2 are normal without murmurs, rubs, or gallops. ABDOMEN: Soft, distended with decreased bowel sounds. There is pain to palpation in the epigastric region. There is rebound noted. There is voluntary guarding noted. EXTREMITIES: Negative for clubbing, cyanosis, or edema. RECTAL/GENITAL: Refused. NEUROLOGIC: Cranial nerves II through XII are grossly intact without focal deficits. Motor strength is 5/5 bilaterally. Deep tendon reflexes are 2+ plantar. LABORATORY STUDIES: WBC 12.1, hemoglobin 12.7, hematocrit 41.2, and platelets 151,000. Sodium 133, potassium 3.5, chloride 97, CO2 26, BUN 14, creatinine 0.7, and glucose 203. A CT scan of the abdomen revealed pneumoperitoneum consistent with perforation. ASSESSMENT: This is a 68-year-old female. 1. Pneumoperitoneum. 2. Perforated probable gastric ulcer. 3. Hypertension. 4. Diabetes type 2. 5. Hypercholesterolemia. TREATMENT: 1. Pneumoperitoneum/perforated gastric ulcer. A Surgery consultation has been obtained with Dr. Henley. The patient may require emergent surgery at this time. We will follow recommendations of General surgery. 2. Hypertension. The patient is currently hypotensive. We will continue losartan, hydrochlorothiazide, and clonidine as above. 3. Diabetes type 2. The patient is currently NPO. The patient has been started on NovoLog sliding scale. 4. Hypercholesterolemia. Continue atorvastatin as above. Christopher Connor M.D. DR: JAYLAN JOB#: [id number] CC:
[2018-05-07] VITALS (44 sets, daily range): BP systolic 59–133; BP diastolic 15–76
[2018-05-07] MEDS: Piperacillin/Tazobactam 3.375 GM in D5W 110 ML IVPB SCH ×2 (00:26→13:00)
--- NOTE | 2018-05-07 01:30 | Operative Note - Dictated ---
DATE OF OPERATION: 05/06/2018 PREOPERATIVE DIAGNOSIS: Perforated abdominal viscus. POSTOPERATIVE DIAGNOSIS: Perforated anterior large pre-pyloric gastric ulcer. OPERATION PERFORMED: 1. Exploratory laparotomy. 2. Antrectomy with gastrojejunostomy, Billroth II. 3. Cholecystectomy. 4. Omentectomy. 5. Abdominal washout. ATTENDING SURGEON: Ken Henley M.D. ALUMINUM MOLDER: None. ANESTHESIOLOGIST: Dr. Wei ANESTHESIA: General DIRECTOR DESIGN. ESTIMATED BLOOD LOSS: 100 mL. IV FLUIDS: Please see anesthesia records. COMPLICATIONS: None. DRAINS: None. COUNTS: Sponge and needle count correct x2. WOUND CLASSIFICATION: Class III. ANTIBIOTICS: The patient on Zosyn and Flagyl, scheduled for acute active inflammatory process. INDICATIONS FOR PROCEDURE: This 68-year-old female presented to the emergency department complaining of worsening abdominal pain for approximately 1 week. She states she has not been able to tolerate diet and abdomen has become more distended with increased amounts of pain. She has had some nausea, but no significant emesis. As pain has been worsening, she came to the emergency room for evaluation. Initial examination identified significant abdominal tenderness with distention. Laboratory data identified leukocytosis and CT scan was performed, which identified pneumoperitoneum with perforated abdominal viscus, likely being gastric. Given these above findings and the abdominal exam with peritonitis and the patient's history, surgery was indicated and recommended. Risks, benefits, and alternatives were discussed with the patient in detail who expressed understanding and consented to surgery. OPERATIVE NOTE: The patient was taken to the operating room, placed on the operating table in supine position with bilateral arms out. All bony prominences well padded. SCDs were placed. Preoperative time-out was taken identifying the patient, procedure, operative staff, and surgical staff. General anesthesia was induced and the patient was intubated. Gonzalez catheter was placed using standard sterile technique. The abdomen was clipped, prepped, and draped in standard surgical fashion. The patient had a prior midline surgery and decision was made to go in [place]. A midline abdominal incision was made using a fresh #10 scalpel from the xiphoid down to the umbilicus. Incision was carried down through the subcutaneous tissue and fascia. Fascia was elevated and incised. Entry into the abdomen was obtained without complication. Upon entering the abdomen, there was significant amount of abdominal fluid content that was with sediments and food particles. This was evacuated out using suction and cultures were taken. There were adhesions of the omentum and small bowel from the patient's prior surgery to the anterior abdominal wall. These adhesions were taken down using electrocautery, blunt and fine dissection as necessary with Metzenbaum scissors. Following this, the abdomen was explored and a large anterior prepyloric gastric ulcer was identified with active leaking of gastric and bilious contents. The omentum was fairly thickened and inflamed as well, and the gallbladder was noted to be dilated and tense with inflammatory adhesions around it. At this time, the abdomen was then washed out and inspected and the stomach was otherwise normal except for the large perforated anterior pre-pyloric gastric ulcers. There was a significant amount of inflammatory tissue around the distal gastric and proximal duodenum as well as in the hilar plate and to the omentum. The small bowel was inspected from the ligament of Treitz down to the ileocecal valve. The prior small bowel resection with anastomosis was identified and noted to be intact and otherwise healthy. Some inter-loop adhesions were taken down using Metzenbaum scissors. In the distal portion of the small bowel, approximately 1 to 2 feet from the ileocecal valve, a broad-based, uninflamed, otherwise normal Meckel diverticulum was noted. The appendix was otherwise normal. The cecum, ascending colon, transverse, descending, and sigmoid colon were otherwise normal as well. There was a fair amount of fluid in the pelvis, which was evacuated and washed out. Following this, it was decided that it would be very difficult given the amount of thickening in the omentum as well as the size and location of the ulcer to perform a Apolinar patch. Decision was made to proceed with resection of the perforated ulcerated area with anastomosis later decided based on bowel mobility and anatomy. The hepatic flexure was taken down and generous kocherization of the duodenum was performed. In completing the kocherization and freeing up the first portion of the duodenum as well as the distal portion of the stomach, the omental adhesions to the gallbladder and this area were taken down. The gallbladder was very thin walled and distended / taut. In dissecting out the adhesions, there was some bleeding from superficial gallbladder veins. In attempting to obtain hemostasis, the gallbladder perforated and was evacuated. There was significant tension of the gallbladder and potentially distal obstruction, though no stones were identified. At this time, decision was made to perform a cholecystectomy. A top-down approach was taken by removing the gallbladder from the liver bed using electrocautery from the dome down to the infundibulum. The cystic duct and artery were identified and circumferentially dissected out and ligated using 3-0 silk ties. The gallbladder was sent off as a specimen. Following this, the omentum was significantly thickened and would make it difficult for an antecolic Jon-en-Y or gastrojejunostomy, and therefore, omentectomy was performed using a Thunderbeat energy device. Once the omentum was removed, better anatomical evaluation of the abdomen was noted and the continuation of the case proceeded. An area approximately 4-5 cm away from the area of perforation identifying the antrum was identified and a window was made in the pars flaccida and the lesser sac had already been entered prior. A ABE 75 mm linear stapler was then used to divide the stomach at the pre-decided point of transection using 2 staple loads. Electrocautery and 3-0 silk ties were used to obtain hemostasis from adhesions around the pylorus and the first portion of the duodenum to the pancreas and surrounding tissues. Once the first portion of the duodenum was freed, a linear stapler was used to divide distal to the pylorus. The specimen was sent to pathology for review. Following this, the duodenal staple line was imbricated using 3-0 silk Lembert interrupted sutures. The abdomen was then re-inspected and irrigated with copious amounts of warm sterile normal saline until clean. At this time, a B I configuration would have significant amount of tension, and therefore, decision was made to proceed with a B II gastrojejunostomy, antecolic. The ligament of Treitz was identified and the first portion of the jejunum that would be easily accessible for gastrojejunostomy without tension or other abnormality was decided. The 3-0 silk pop-off stay sutures were placed in the proposed gastrojejunostomy site. A linear posterior row of Lembert interrupted sutures were placed. Following this, gastrostomy and enterotomy were made and a linear stapler was inserted and fired for proper gastrojejunostomy. The staple line was evaluated and noted to be intact and hemostatic. The remaining defect was then closed in a two-layer fashion beginning with a 3-0 Vicryl running suture followed by 3-0 silk interrupted Lembert sutures. A good patent gastrojejunostomy was identified. No tension or other abnormalities were noted. At this time, we began the conclusion of our procedure. The liver bed was inspected and noted to be clean and a Surgicel was placed for appropriate hemostasis. No other abnormalities were noted and we began the conclusion of our procedure. A #0 looped PDS suture was used to reapproximate the fascia. The surgical wound was irrigated and skin incision closed using surgical wesly. Throughout the procedure, an NG-tube was placed and in appropriate positioning following the gastrojejunostomy and this was taped down and to be left in place. Gonzalez catheter was to be left in place postoperatively as well. The patient was extubated and taken to postanesthetic care unit in stable condition. Ken Henley M.D. DR: ANGUS JOB#: [id number] CC: LAURA
[2018-05-07] MEDS: D5 1/2NS w/KCl 20mEq 1,000 ML IV SCH (02:52)
[2018-05-07] MEDS: NovoLOG Insulin Flexpen SUBQ SCH ×4 (06:00→23:36)
[2018-05-07 06:30] LABS: BASOPHILS % (AUTO) 0.6 % (0.0-2.0); EOSINOPHILS % (AUTO) 0.6 % (0.0-3.0); HEMATOCRIT 34.3 % (37.0-47.0); HEMOGLOBIN 10.7 G/DL (12.0-16.0); LYMPHOCYTES % (AUTO) 14.9 % (20.0-45.0); MEAN CORPUSCULAR VOLUME 74 FL (80-99); MONOCYTES % (AUTO) 3.8 % (1.0-10.0); PLATELET COUNT 292 K/UL (150-450); RED BLOOD COUNT 4.62 M/UL (4.20-5.40); RED CELL DISTRIBUTION WIDTH 14.3 % (11.6-14.8)
[2018-05-07 07:27] LABS: INR 1.4 (0.9-1.1)
[2018-05-07 07:40] LABS: ANION GAP 17 mmol/L (5-15); BLOOD UREA NITROGEN 25 mg/dL (7-18); CARBON DIOXIDE 13 MMOL/L (21-32); CHLORIDE 104 MMOL/L (98-107); CREATININE 2.3 MG/DL (0.55-1.30); PHOSPHORUS 4.5 MG/DL (2.5-4.9); POTASSIUM 4.2 MMOL/L (3.5-5.1); SODIUM 134 MMOL/L (136-145)
[2018-05-07] MEDS ORDERED: Lidocaine 1% MPF 10mg/ml 5ml INJ ONE (08:15)
[2018-05-07] MEDS ORDERED: Heparin 2000 units/Ns 1000ml INJ SCH (08:30)
[2018-05-07] MEDS ORDERED: Lidocaine 1% Plain 30 ml INJ SCH (08:30)
[2018-05-07] MEDS: Losartan 25mg tab ORAL SCH (09:00)
[2018-05-07] MEDS: Heparin 5000 units/ml inj SUBQ SCH ×2 (09:00→20:57)
[2018-05-07] MEDS: dilTIAZem HCl CD 180mg cap ORAL SCH (09:00)
--- NOTE | 2018-05-07 09:15 | Emergency Room Report ---
History of Present Illness General Chief Complaint: Abdominal Pain Source: Patient, Medical Record, PMD Present Illness Allergies: Coded Allergies: No Known Allergies (Unverified , 11/30/16) Patient History Now: No Nursing Documentation-PMH Hx Cardiac Problems: Yes Hx Hypertension: Yes - hyperlipidemia Hx Diabetes: Yes Hx Cancer: No Hx Gastrointestinal Problems: Yes - BOWEL RESECTION,NOV 2016 Hx Neurological Problems: No Physical Exam Vital Signs Date Time Temp Pulse Resp B/P (MAP) Pulse Ox O2 Delivery O2 Flow Rate FiO2 05/06/18 01:14 98.5 75 16 198/90 95 Room Air 98.4 05/06/18 04:55 2.0 05/06/18 18:35 36 Medical Decision Making Diagnostic Impression: Primary Impression: Perforated gastric ulcer Qualified Codes: K25.1 - Acute gastric ulcer with perforation Additional Impression: Pneumoperitoneum ER Course I was called to the patient's bedside in the ICU for intubation, as she was declilning after a bowel resection surgery for a perforated hollow viscous. However when I arrived, patient was being coded by the nursing staff because she went pulseless. I was not told the rhythm but compressions were in progress and 1 mg of epinephrine had been given, and the patient was being bag mask ventilated. I requested intubation supplies be made ready and suction catheter to be prepared, I suctioned the airway and then on the next pulse check a second dose of epinephrine was given, and patient had a ROSC event with a strong left carotid pulse, narrow complex on the monitor, accucheck >100, and so then I continued bag mask ventilations and proceed with intubation. Using the 3.0 glidescope blade, I was able to intubate the patient using a 7.0 ET tube on the first attempt with no untoward consultations, it was secured at 22 cm at the lips, had good color change on the colorimeter, and bilateral breath sounds auscultated with good air exchange and symmetrical chest rise. Patient' s sats were in the high 90s, heart rate in the 80s, narrow complex on the monitor and regular. Patient was receiving peripheral Levophed as well as a 1 liter bolus of normal saline while a central line was being placed by the central line team. I requested a full panel of labs including repeat lactic acid, CBC, metabolic panel, all be given. I actually called Dr. Del Toro, explained what had transpired, and he spoke to the ICU nurse to give orders since he was the admitting physician. Last Vital Signs Date Time Temp Pulse Resp B/P (MAP) Pulse Ox O2 Delivery O2 Flow Rate FiO2 05/07/18 06:30 99.7 117 20 99/54 (69) 97 99.7 05/06/18 21:00 Nasal Cannula 4.0 05/06/18 18:35 36 Disposition: ADMITTED INPATIENT Condition: Serious Referrals: NOT CHOSEN SCOOTER/,REFERRING (PCP) NANCIE PENA M.D May 07, 2018 09:15
--- NOTE | 2018-05-07 09:59 | Pulmonolgy Critical Care Note ---
Critical Care - Asmt/Plan Problems: (1) Cardiac arrest (2) Septic shock Respiratory: monitor respiratory rate, adjust FIO2, CXR Cardiac: continue pressors, continue to monitor HR/BP Renal: F/U I&O, keep IV fluid Infectious Disease: check cultures Gastrointestinal: hold feedings Endocrine: monitor blood sugar Hematologic: monitor H/H Neurologic: PRN Ativan, keep patient comfortable Prophylaxis: Protonix Notes Reviewed: geometry professor, cardio Discussed with: nurses, consultants, correctional counselor/case managermedical reimbursement manager - Objective Last 24 Hour Vital Signs Date Time Temp Pulse Resp B/P (MAP) Pulse Ox O2 Delivery O2 Flow Rate FiO2 05/07/18 06:30 99.7 117 20 99/54 (69) 97 99.7 05/07/18 05:45 102.7 114 20 97/54 (68) 94 102.7 05/07/18 04:35 102.7 05/07/18 04:05 101.1 05/07/18 04:00 101.1 120 18 99/49 (66) 95 101.1 05/07/18 00:00 99.8 116 20 99/56 (70) 92 99.8 05/06/18 21:00 Nasal Cannula 4.0 05/06/18 20:57 113 127/57 05/06/18 20:00 99.4 113 20 127/57 (80) 92 99.4 05/06/18 18:35 Nasal Cannula 4.0 36 05/06/18 18:35 94 Nasal Cannula 4.0 36 05/06/18 17:30 99.2 100 24 123/60 90 Nasal Cannula 4 99.2 05/06/18 17:20 98 26 118/57 91 Nasal Cannula 4 05/06/18 17:15 98 26 98/41 90 Nasal Cannula 4 05/06/18 17:00 96 23 101/50 89 Nasal Cannula 4 05/06/18 16:35 97 22 128/52 95 Non-Rebreather 15 05/06/18 16:25 101 22 134/48 91 Non-Rebreather 15 05/06/18 16:15 105 16 150/60 89 Non-Rebreather 15 05/06/18 16:11 211.1 110 18 05/06/18 16:10 106 20 156/59 89 Non-Rebreather 15 05/06/18 16:06 99.5 110 18 147/62 90 Non-Rebreather 15 99.5 05/06/18 12:00 98.6 129 20 129/76 (93) 91 98.6 Status: obtunded Condition: critical Neck: full ROM Lungs: rales, rhonchi Heart: HR/BP stable Abdomen: soft Extremities: no C/C/E Accucheck: 231 Critical Care - Subjective ROS Limited/Unobtainable: Yes ICU Day: 1 Interval Events: pt coded twice already after transferring to ICU. FI02: 36 Sputum Amount: None I&O: Intake and Output 05/06/18 05/07/18 19:00 07:00 Intake Total 4700 ml 955.0 ml Output Total 425 ml Balance 4275 ml 955.0 ml IV Total 4200 ml 955.0 ml Other 500 ml Output Urine Total 275 ml Gastric Drainage Total 0 ml Estimated Blood Loss 150 ml # Voids 2 Labs: Laboratory Tests Test 05/07/18 05:20 05/07/18 07:20 White Blood Count 11.0 K/UL (4.8-10.8) H Red Blood Count 4.62 M/UL (4.20-5.40) Hemoglobin 10.7 G/DL (12.0-16.0) L Hematocrit 34.3 % (37.0-47.0) L Mean Corpuscular Volume 74 FL (80-99) L Mean Corpuscular Hemoglobin 23.1 PG (27.0-31.0) L Mean Corpuscular Hemoglobin Concent 31.2 G/DL (32.0-36.0) L Red Cell Distribution Width 14.3 % (11.6-14.8) Platelet Count 292 K/UL (150-450) Mean Platelet Volume 6.2 FL (6.5-10.1) L Neutrophils (%) (Auto) 80.0 % (45.0-75.0) H Lymphocytes (%) (Auto) 14.9 % (20.0-45.0) L Monocytes (%) (Auto) 3.8 % (1.0-10.0) Eosinophils (%) (Auto) 0.6 % (0.0-3.0) Basophils (%) (Auto) 0.6 % (0.0-2.0) Prothrombin Time 14.2 SEC (9.30-11.50) H Prothromb Time International Ratio 1.4 (0.9-1.1) H Activated Partial Thromboplast Time 43 SEC (23-33) H Sodium Level 134 MMOL/L (136-145) L Potassium Level 4.2 MMOL/L (3.5-5.1) Chloride Level 104 MMOL/L (98-107) Carbon Dioxide Level 13 MMOL/L (21-32) L Anion Gap 17 mmol/L (5-15) H Blood Urea Nitrogen 25 mg/dL (7-18) H Creatinine 2.3 MG/DL (0.55-1.30) #H Estimat Glomerular Filtration Rate 21.0 mL/min (>60) Glucose Level 216 MG/DL (74-106) H Calcium Level 7.0 MG/DL (8.5-10.1) #L Phosphorus Level 4.5 MG/DL (2.5-4.9) Magnesium Level 1.1 MG/DL (1.8-2.4) L Arterial Blood pH 7.380 (7.350-7.450) Arterial Blood Partial Pressure CO2 16.8 mmHg (35.0-45.0) *L Arterial Blood Partial Pressure O2 113.8 mmHg (75.0-100.0) H Arterial Blood HCO3 9.9 mmol/L (22.0-26.0) L Arterial Blood Oxygen Saturation 97.6 % (92.0-98.0) Arterial Blood Base Excess -13.2 Curtis Test Positive Lactic Acid Level 7.90 mmol/L (0.4-2.0) H Zeeshan Del Toro MD May 07, 2018 09:59
[2018-05-07 10:00] LABS: HEMATOCRIT 25.8 % (37.0-47.0); HEMOGLOBIN 7.8 G/DL (12.0-16.0); MEAN CORPUSCULAR VOLUME 75 FL (80-99); PLATELET COUNT 196 K/UL (150-450); RED BLOOD COUNT 3.44 M/UL (4.20-5.40); RED CELL DISTRIBUTION WIDTH 14.5 % (11.6-14.8); WHITE BLOOD COUNT 14.2 K/UL (4.8-10.8)
[2018-05-07] MEDS ORDERED: Sodium Bicarbonate 50 ML in NS 1000ml 1,000 ML IV SCH ×2 (10:00→13:00)
[2018-05-07] MEDS ORDERED: LORazepam Inj 2mg/ml 1ml IV PRN ×2 (10:00→14:00)
[2018-05-07] MEDS ORDERED: Morphine Sulfate 4mg/ml Inj (IV USE ONLY) IVP PRN ×2 (10:05→14:15)
[2018-05-07 10:15] LABS: BLOOD UREA NITROGEN 24 mg/dL (7-18); CHLORIDE 129 MMOL/L (98-107); POTASSIUM 4.1 MMOL/L (3.5-5.1)
[2018-05-07 10:17] LABS: CALCIUM 5.6 MG/DL (8.5-10.1); CARBON DIOXIDE > 45 MMOL/L (21-32); SODIUM 197 MMOL/L (136-145)
[2018-05-07] MEDS ORDERED: Sodium Bicarbonate 50ml Carp IV ONE (10:45)
[2018-05-07 10:49] LABS: ALBUMIN 1.3 G/DL (3.4-5.0); ALBUMIN/GLOBULIN RATIO 0.8 (1.0-2.7); ALKALINE PHOSPHATASE 38 U/L (46-116)
--- NOTE | 2018-05-07 10:50 | Diagnostic Imaging Report ---
Indication: Post intubation, status post CODE BLUE Technique: One view of the chest Comparison: none Findings: Endotracheal tube tip projects just above the vira. There is a nasogastric tube in place, tip projected level gastric fundus, proximal port at or just above the gastroesophageal junction. There is some infiltrate in left perihilar region, left upper lobe, and right upper lobe. The pleural spaces are clear. Heart size is normal. No pneumothorax. There are overlying defibrillator paddles. There are midline abdominal skin wesly Impression: Endotracheal tube tip just above the vira Somewhat high position of nasogastric tube. This finding was discussed by phone with charge nurse Eliecer in the ICU previously Bilateral infiltrates
--- NOTE | 2018-05-07 10:52 | Diagnostic Imaging Report ---
Indication: Status post nasogastric tube] min Technique: One view of the chest Comparison: One hour earlier Findings: Slightly higher, improved position of endotracheal tube, tip currently projecting approximately 3 cm above the vira. Interval advancement of nasogastric tube, tip projected level gastric fundus, proximal port just beyond the expected level of the gastroesophageal junction. Interim placement of right jugular central venous catheter, tip which projects at the level of the cavoatrial junction. There is better aeration of both lungs and previously demonstrated bilateral infiltrates have improved considerably. Impression: Improved positions of endotracheal and nasogastric tubes Decreased bilateral infiltrates Interim right jugular central venous catheter placement without evident complication
--- NOTE | 2018-05-07 10:53 | Diagnostic Imaging Report ---
Indication: Needs central IV access Technique: Procedure performed at bedside. Procedural timeout performed. Ultrasound confirms patent compressible right internal jugular vein. Total sterile technique, including sterile probe cover and sterile gel, sterile gloves, hand hygiene, hat, mask, sterile gown, large sterile drape, and preparation with 2% chlorhexidine utilized.Local anesthesia with 1% lidocaine. Under real-time ultrasound guidance, puncture right internal jugular vein using 21-gauge needle, passage 0.018 guidewire, insertion 4 Spanish introducer, passage 0.035 guidewire, over which was passed serial dilators and then a right transjugular central venous catheter. Completion chest radiograph obtained, demonstrating catheter tip position at the cavoatrial junction. Impression: Successful placement of right jugular central venous catheter, as described.
[2018-05-07 11:06] LABS: ALANINE AMINOTRANSFERASE 1488 U/L (12-78); BILIRUBIN,TOTAL 0.2 MG/DL (0.2-1.0)
[2018-05-07 11:06] LABS: ANION GAP 22 mmol/L (5-15); BLOOD UREA NITROGEN 26 mg/dL (7-18); CARBON DIOXIDE 14 MMOL/L (21-32); CHLORIDE 110 MMOL/L (98-107); CREATININE 2.5 MG/DL (0.55-1.30); POTASSIUM 3.9 MMOL/L (3.5-5.1); SODIUM 146 MMOL/L (136-145)
[2018-05-07 11:08] LABS: CALCIUM 5.9 MG/DL (8.5-10.1)
[2018-05-07 11:44] LABS: ASPARTATE AMINO TRANSFERASE 2530 U/L (15-37)
[2018-05-07] MEDS ORDERED: Calcium Chloride 10% 10ml carpuject IVP ONE (12:00)
[2018-05-07] MEDS ORDERED: Calcium Chloride 10% 10ml carpuject IVP SCH (12:00)
[2018-05-07] MEDS: Pantoprazole Inj IVP SCH ×2 (12:04→20:51)
--- NOTE | 2018-05-07 12:19 | Infectious Diseases Prog Note ---
Assessment/Plan Assessment/Plan Perforated gastric ulcer - Now in Septic Shock -s/p exp lap, antrectomy with gastrojejunostomy, cholecystectomy, omentectomy and abdominal washout 05/06 -OR findings: large perforated pre pyloric anterior gastric ulcer. -CT abd/p: Pneumoperitoneum indicative of perforated hollow viscus. Most likely a perforated gastric ulcer, as there does appear to be a small mural gas and fluid collection within the gastric antrum as well as generalized wall thickening of the gastric wall. Free intraperitoneal fluid, presumably secondary to the above. Evidence of interim small bowel surgery for previously demonstrated small bowel perforation Peripheral wedge-shaped areas of decreased attenuation in the right kidney, not evident previously. These raise concern for focal areas of nephritis or small infarcts. Renal and right lobe liver subcentimeter low-attenuation lesions which are too small to characterize, most likely benign simple cysts. No further follow-up necessary. Bilateral basilar pulmonary interstitial septal thickening, acuity indeterminate. There are also compressive atelectatic changes Leukocytosis - 2/2 to above Encephalopathy Dm2 HLD SBO s/p surgery 11/2016 Plan: Septic Shock - Switch to Meropenem, Daptomycin and Micafungin given critical clinical situation -Zosyn 2# and Fluconazole #2 for peritonitis ended -f/u cx from OR -Monitor CBC/CMP, temperatures -Sx f/u -aspiration precautions -wound care per hosp protocol - Patient with poor prognosis Thank you for this consultation. Will continue to follow along with you. Discussed with Dr Henley Subjective Allergies: Coded Allergies: No Known Allergies (Unverified , 11/30/16) Subjective Patient intubated on Levophed 24mcg Off sedation but not awake or responsive Lactate up to 13 with leukocytosis and fever. Objective Vital Signs Last 24 Hour Vital Signs Date Time Temp Pulse Resp B/P (MAP) Pulse Ox O2 Delivery O2 Flow Rate FiO2 05/07/18 12:09 110/42 05/07/18 09:30 66/28 05/07/18 08:30 53/31 05/07/18 06:30 99.7 117 20 99/54 (69) 97 99.7 05/07/18 05:45 102.7 114 20 97/54 (68) 94 102.7 05/07/18 04:35 102.7 05/07/18 04:05 101.1 05/07/18 04:00 101.1 120 18 99/49 (66) 95 101.1 05/07/18 00:00 99.8 116 20 99/56 (70) 92 99.8 05/06/18 21:00 Nasal Cannula 4.0 05/06/18 20:57 113 127/57 05/06/18 20:00 99.4 113 20 127/57 (80) 92 99.4 05/06/18 18:35 Nasal Cannula 4.0 36 05/06/18 18:35 94 Nasal Cannula 4.0 36 05/06/18 17:30 99.2 100 24 123/60 90 Nasal Cannula 4 99.2 05/06/18 17:20 98 26 118/57 91 Nasal Cannula 4 05/06/18 17:15 98 26 98/41 90 Nasal Cannula 4 05/06/18 17:00 96 23 101/50 89 Nasal Cannula 4 05/06/18 16:35 97 22 128/52 95 Non-Rebreather 15 05/06/18 16:25 101 22 134/48 91 Non-Rebreather 15 05/06/18 16:15 105 16 150/60 89 Non-Rebreather 15 05/06/18 16:11 211.1 110 18 05/06/18 16:10 106 20 156/59 89 Non-Rebreather 15 05/06/18 16:06 99.5 110 18 147/62 90 Non-Rebreather 15 99.5 Height (Feet): 4 Height (Inches): 10.00 Weight (Pounds): 110 Objective General Appearance: Intubated HEENT: NCAT, ET tube in place, DMM, mucous membranes moist, Pupils poorly reactive Respiratory/Chest: normal breath sounds, no respiratory distress, no accessory muscle use Cardiovascular/Chest: Tachycardic RR, S1, S2 Abdomen: soft, bandage over surgical site, Extremities: Mild peripheral edema, Pulses 1+ B/L (DP, Rad) Skin Exam: normal pigmentation Neurologic: Opens eyes but not responsive, Microbiology Date/Time Source Procedure Growth Status 05/06/18 15:00 Abdominal Fluid Gram Stain - Final Resulted 05/06/18 15:00 Abdominal Fluid Aerobic Culture - Preliminary Resulted 05/06/18 15:00 Abdominal Fluid Anaerobic Culture - Preliminary Resulted Laboratory Tests Test 7/27/18 05:20 05/07/18 07:20 05/07/18 09:15 05/07/18 10:00 White Blood Count 11.0 K/UL (4.8-10.8) H 14.2 K/UL (4.8-10.8) H Red Blood Count 4.62 M/UL (4.20-5.40) 3.44 M/UL (4.20-5.40) L Hemoglobin 10.7 G/DL (12.0-16.0) L 7.8 G/DL (12.0-16.0) L Hematocrit 34.3 % (37.0-47.0) L 25.8 % (37.0-47.0) L Mean Corpuscular Volume 74 FL (80-99) L 75 FL (80-99) L Mean Corpuscular Hemoglobin 23.1 PG (27.0-31.0) L 22.7 PG (27.0-31.0) L Mean Corpuscular Hemoglobin Concent 31.2 G/DL (32.0-36.0) L 30.3 G/DL (32.0-36.0) L Red Cell Distribution Width 14.3 % (11.6-14.8) 14.5 % (11.6-14.8) Platelet Count 292 K/UL (150-450) 196 K/UL (150-450) Mean Platelet Volume 6.2 FL (6.5-10.1) L 5.9 FL (6.5-10.1) L Neutrophils (%) (Auto) 80.0 % (45.0-75.0) H % (45.0-75.0) Lymphocytes (%) (Auto) 14.9 % (20.0-45.0) L % (20.0-45.0) Monocytes (%) (Auto) 3.8 % (1.0-10.0) % (1.0-10.0) Eosinophils (%) (Auto) 0.6 % (0.0-3.0) % (0.0-3.0) Basophils (%) (Auto) 0.6 % (0.0-2.0) % (0.0-2.0) Prothrombin Time 14.2 SEC (9.30-11.50) H Prothromb Time International Ratio 1.4 (0.9-1.1) H Activated Partial Thromboplast Time 43 SEC (23-33) H Sodium Level 134 MMOL/L (136-145) L 197 MMOL/L (136-145) #*H Potassium Level 4.2 MMOL/L (3.5-5.1) 4.1 MMOL/L (3.5-5.1) Chloride Level 104 MMOL/L (98-107) 129 MMOL/L (98-107) H Carbon Dioxide Level 13 MMOL/L (21-32) L > 45 MMOL/L (21-32) *H Anion Gap 17 mmol/L (5-15) H Blood Urea Nitrogen 25 mg/dL (7-18) H 24 mg/dL (7-18) H Creatinine 2.3 MG/DL (0.55-1.30) #H 2.0 MG/DL (0.55-1.30) H Estimat Glomerular Filtration Rate 21.0 mL/min (>60) 24.6 mL/min (>60) Glucose Level 216 MG/DL (74-106) H 231 MG/DL (74-106) H Calcium Level 7.0 MG/DL (8.5-10.1) #L 5.6 MG/DL (8.5-10.1) *L Phosphorus Level 4.5 MG/DL (2.5-4.9) Magnesium Level 1.1 MG/DL (1.8-2.4) L Arterial Blood pH 7.380 (7.350-7.450) Arterial Blood Partial Pressure CO2 16.8 mmHg (35.0-45.0) *L Arterial Blood Partial Pressure O2 113.8 mmHg (75.0-100.0) H Arterial Blood HCO3 9.9 mmol/L (22.0-26.0) L Arterial Blood Oxygen Saturation 97.6 % (92.0-98.0) Arterial Blood Base Excess -13.2 Curtis Test Positive Lactic Acid Level 7.90 mmol/L (0.4-2.0) H 13.10 mmol/L (0.4-2.0) H Total Bilirubin 0.2 MG/DL (0.2-1.0) Aspartate Amino Transf (AST/SGOT) 2530 U/L (15-37) H Alanine Aminotransferase (ALT/SGPT) 1488 U/L (12-78) H Alkaline Phosphatase 38 U/L (46-116) L Total Protein 2.9 G/DL (6.4-8.2) #L Albumin 1.3 G/DL (3.4-5.0) L Globulin 1.6 g/dL Albumin/Globulin Ratio 0.8 (1.0-2.7) L Differential Total Cells Counted 100 Neutrophils % (Manual) 42 % (45-75) L Lymphocytes % (Manual) 37 % (20-45) Monocytes % (Manual) 11 % (1-10) H Eosinophils % (Manual) 2 % (0-3) Basophils % (Manual) 1 % (0-2) Band Neutrophils 7 % (0-8) Platelet Estimate Adequate Platelet Morphology Normal Hypochromasia Anisocytosis 1+ Test 05/07/18 10:30 Sodium Level 146 MMOL/L (136-145) #H Potassium Level 3.9 MMOL/L (3.5-5.1) Chloride Level 110 MMOL/L (98-107) H Carbon Dioxide Level 14 MMOL/L (21-32) L Anion Gap 22 mmol/L (5-15) H Blood Urea Nitrogen 26 mg/dL (7-18) H Creatinine 2.5 MG/DL (0.55-1.30) H Estimat Glomerular Filtration Rate 19.1 mL/min (>60) Glucose Level 220 MG/DL (74-106) H Calcium Level 5.9 MG/DL (8.5-10.1) *L Current Medications Medications (Trade) Dose Ordered Sig/Raghav Route PRN Reason Start Time Stop Time Status Last Admin Dose Admin Acetaminophen (Tylenol) 650 mg Q4H PRN RECTAL FEVER 05/06/18 16:15 06/05/18 16:14 05/07/18 04:05 Albumin Human 500 ml @ 0 mls/hr Q0M IV 05/07/18 11:00 05/07/18 12:30 Albumin Human 500 ml @ 0 mls/hr Q0M ONCE IV 05/07/18 11:45 05/07/18 11:46 UNV Clonidine HCl (Catapres Tab) 0.1 mg Q6H PRN ORAL For High Blood Pressure 05/06/18 06:45 06/05/18 06:44 Dextrose (Dextrose 50%) 25 ml STAT PRN IV Hypoglycemia 05/06/18 06:45 06/05/18 06:44 Dextrose (Dextrose 50%) 50 ml STAT PRN IV Hypoglycemia 05/06/18 06:45 06/05/18 06:44 Diphenhydramine HCl (Benadryl) 12.5 mg Q6H PRN IVP Itching/Pruritis 05/06/18 16:15 06/05/18 16:14 Fluconazole/ Sodium Chloride 100 ml @ 100 mls/hr Q24H IV 05/06/18 11:00 05/13/18 10:59 05/06/18 12:06 Heparin Sodium (Porcine) (Heparin 5000 units/ml) 5,000 units EVERY 12 HOURS SUBQ 05/06/18 21:00 06/05/18 20:59 05/06/18 20:31 Insulin Aspart (NovoLOG) EVERY 6 HOURS SUBQ 05/06/18 12:00 06/05/18 11:59 Lorazepam (Ativan 2mg/ml 1ml) 2 mg Q4H PRN IV For Anxiety 05/07/18 10:00 05/14/18 09:59 Morphine Sulfate (Morphine Sulfate) 4 mg Q4H PRN IVP For Pain 05/07/18 10:05 05/14/18 10:04 Norepinephrine Bitartrate 4 mg/ Dextrose 250 ml @ 0 mls/hr Q24H IV 05/07/18 08:30 05/07/18 12:29 05/07/18 12:09 Norepinephrine Bitartrate 8 mg/ Dextrose 500 ml @ 0 mls/hr Q24H IV 05/07/18 12:30 06/06/18 12:29 Ondansetron HCl (Zofran) 4 mg Q6H PRN IVP Nausea & Vomiting 05/06/18 16:15 06/05/18 16:14 Pantoprazole (Protonix) 40 mg DAILY IV 05/08/18 10:05 06/07/18 10:04 Pantoprazole (Protonix) 40 mg EVERY 12 HOURS IVP 05/06/18 09:00 06/05/18 08:59 05/07/18 12:04 Piperacillin Sod/ Tazobactam Sod 3.375 gm/Dextrose 110 ml @ 27.5 mls/hr Q8H IVPB 05/06/18 09:00 05/13/18 08:59 05/07/18 00:26 Sodium Bicarbonate 50 ml/ Sodium Chloride 1,050 ml @ 125 mls/hr Q8H24M IV 05/07/18 10:00 06/06/18 09:59 05/07/18 11:37 Eliecer Lora M.D. May 07, 2018 12:19
[2018-05-07] MEDS ORDERED: Norepinephrine Bitartrate 8 MG in D5W 500ml 492 ML IV SCH (12:30)
--- NOTE | 2018-05-07 12:54 | General Progress Note ---
Assessment/Plan Status: deteriorating Assessment/Plan encephalopathy seroquel prn/agitation Subjective Allergies: Coded Allergies: No Known Allergies (Unverified , 11/30/16) Subjective the pt coded twice today. lethargic and has waxing and waning of consciousness Objective Last 24 Hour Vital Signs Date Time Temp Pulse Resp B/P (MAP) Pulse Ox O2 Delivery O2 Flow Rate FiO2 05/07/18 12:09 110/42 05/07/18 09:30 66/28 05/07/18 08:30 53/31 05/07/18 06:30 99.7 117 20 99/54 (69) 97 99.7 05/07/18 05:45 102.7 114 20 97/54 (68) 94 102.7 05/07/18 04:35 102.7 05/07/18 04:05 101.1 05/07/18 04:00 101.1 120 18 99/49 (66) 95 101.1 05/07/18 00:00 99.8 116 20 99/56 (70) 92 99.8 05/06/18 21:00 Nasal Cannula 4.0 05/06/18 20:57 113 127/57 05/06/18 20:00 99.4 113 20 127/57 (80) 92 99.4 05/06/18 18:35 Nasal Cannula 4.0 36 05/06/18 18:35 94 Nasal Cannula 4.0 36 05/06/18 17:30 99.2 100 24 123/60 90 Nasal Cannula 4 99.2 05/06/18 17:20 98 26 118/57 91 Nasal Cannula 4 05/06/18 17:15 98 26 98/41 90 Nasal Cannula 4 05/06/18 17:00 96 23 101/50 89 Nasal Cannula 4 05/06/18 16:35 97 22 128/52 95 Non-Rebreather 15 05/06/18 16:25 101 22 134/48 91 Non-Rebreather 15 05/06/18 16:15 105 16 150/60 89 Non-Rebreather 15 05/06/18 16:11 211.1 110 18 05/06/18 16:10 106 20 156/59 89 Non-Rebreather 15 05/06/18 16:06 99.5 110 18 147/62 90 Non-Rebreather 15 99.5 Intake and Output 05/06/18 05/07/18 19:00 07:00 Intake Total 4700 ml 955.0 ml Output Total 425 ml Balance 4275 ml 955.0 ml IV Total 4200 ml 955.0 ml Other 500 ml Output Urine Total 275 ml Gastric Drainage Total 0 ml Estimated Blood Loss 150 ml # Voids 2 Laboratory Tests 05/07/18 05:20: White Blood Count 11.0H, Red Blood Count 4.62, Hemoglobin 10.7L, Hematocrit 34.3L, Mean Corpuscular Volume 74L, Mean Corpuscular Hemoglobin 23.1L, Mean Corpuscular Hemoglobin Concent 31.2L, Red Cell Distribution Width 14.3, Platelet Count 292, Mean Platelet Volume 6.2L, Neutrophils (%) (Auto) 80.0H, Lymphocytes (%) (Auto) 14.9L, Monocytes (%) (Auto) 3.8, Eosinophils (%) (Auto) 0.6, Basophils (%) (Auto) 0.6, Prothrombin Time 14.2H, Prothromb Time International Ratio 1.4H, Activated Partial Thromboplast Time 43H, Sodium Level 134L, Potassium Level 4.2, Chloride Level 104, Carbon Dioxide Level 13L, Anion Gap 17H, Blood Urea Nitrogen 25H, Creatinine 2.3#H, Estimat Glomerular Filtration Rate 21.0, Glucose Level 216H, Calcium Level 7.0#L, Phosphorus Level 4.5, Magnesium Level 1.1L 05/07/18 07:20: Arterial Blood pH 7.380, Arterial Blood Partial Pressure CO2 16.8*L, Arterial Blood Partial Pressure O2 113.8H, Arterial Blood HCO3 9.9L, Arterial Blood Oxygen Saturation 97.6, Arterial Blood Base Excess -13.2, Curtis Test Positive, Lactic Acid Level 7.90H 05/07/18 09:15: Sodium Level 197#*H, Potassium Level 4.1, Chloride Level 129H, Carbon Dioxide Level > 45*H, Blood Urea Nitrogen 24H, Creatinine 2.0H, Estimat Glomerular Filtration Rate 24.6, Glucose Level 231H, Calcium Level 5.6*L, Lactic Acid Level 13.10H, Total Bilirubin 0.2, Aspartate Amino Transf (AST/SGOT) 2530H, Alanine Aminotransferase (ALT/SGPT) 1488H, Alkaline Phosphatase 38L, Total Protein 2.9#L, Albumin 1.3L, Globulin 1.6, Albumin/Globulin Ratio 0.8L 05/07/18 10:00: White Blood Count 14.2H, Red Blood Count 3.44L, Hemoglobin 7.8L, Hematocrit 25.8L, Mean Corpuscular Volume 75L, Mean Corpuscular Hemoglobin 22.7L, Mean Corpuscular Hemoglobin Concent 30.3L, Red Cell Distribution Width 14.5, Platelet Count 196, Mean Platelet Volume 5.9L, Neutrophils (%) (Auto) , Lymphocytes (%) (Auto) , Monocytes (%) (Auto) , Eosinophils (%) (Auto) , Basophils (%) (Auto) , Differential Total Cells Counted 100, Neutrophils % ( Manual) 42L, Lymphocytes % (Manual) 37, Monocytes % (Manual) 11H, Eosinophils % (Manual) 2, Basophils % (Manual) 1, Band Neutrophils 7, Platelet Estimate Adequate, Platelet Morphology Normal, Hypochromasia , Anisocytosis 1+ 05/07/18 10:07: Arterial Blood pH 7.260L, Arterial Blood Partial Pressure CO2 12.8*L, Arterial Blood Partial Pressure O2 315.5H, Arterial Blood HCO3 5.6L, Arterial Blood Oxygen Saturation 98.9H, Arterial Blood Base Excess -19.3, Curtis Test Positive 05/07/18 10:30: Sodium Level 146#H, Potassium Level 3.9, Chloride Level 110H, Carbon Dioxide Level 14L, Anion Gap 22H, Blood Urea Nitrogen 26H, Creatinine 2.5H, Estimat Glomerular Filtration Rate 19.1, Glucose Level 220H, Calcium Level 5.9*L Height (Feet): 4 Height (Inches): 10.00 Weight (Pounds): 110 General Appearance: lethargic, confused Flaquito Olson MD May 07, 2018 12:54
[2018-05-07] MEDS ORDERED: Sodium Bicarbonate 150 ML in D5W 1000ml 1,000 ML IV SCH (14:00)
[2018-05-07] MEDS: Sodium Bicarbonate 150 ML in D5W 1000ml 1,000 ML IV SCH ×2 (14:41→21:19)
[2018-05-07] MEDS: Meropenem 1 GM in NS 55 ML IVPB SCH (15:15)
[2018-05-07] MEDS: Norepinephrine Bitartrate 8 MG in D5W 500ml 492 ML IV SCH ×2 (15:24→23:07)
--- NOTE | 2018-05-07 15:27 | General Surgery Progress Note ---
General Surgery-Progress Note Subjective Procedure Performed 1. exploratory laparotomy 2. antrectomy with gastrojejunostomy ([place] 2) 3. cholecystectomy 4. omentectomy 5. abdominal washout Additional Comments Post operatively patient improved in PACU and transferred to floor for recovery. Initially well for a few hours and conversing with family. only mild abdominal incisional pain. overnight because febrile/tachycardic. change in mental status. SOB. transferred to ICU. Code blue x2 with active resuscitation ACLS. Intubated, central line placement, meds given. regained vitals. currently on pressors. lab abnormalities. Objective Last 24 Hour Vital Signs Date Time Temp Pulse Resp B/P (MAP) Pulse Ox O2 Delivery O2 Flow Rate FiO2 05/07/18 12:09 110/42 05/07/18 09:30 66/28 05/07/18 08:30 53/31 05/07/18 06:30 99.7 117 20 99/54 (69) 97 99.7 05/07/18 05:45 102.7 114 20 97/54 (68) 94 102.7 05/07/18 04:35 102.7 05/07/18 04:05 101.1 05/07/18 04:00 101.1 120 18 99/49 (66) 95 101.1 05/07/18 00:00 99.8 116 20 99/56 (70) 92 99.8 05/06/18 21:00 Nasal Cannula 4.0 05/06/18 20:57 113 127/57 05/06/18 20:00 99.4 113 20 127/57 (80) 92 99.4 05/06/18 18:35 Nasal Cannula 4.0 36 05/06/18 18:35 94 Nasal Cannula 4.0 36 05/06/18 17:30 99.2 100 24 123/60 90 Nasal Cannula 4 99.2 05/06/18 17:20 98 26 118/57 91 Nasal Cannula 4 05/06/18 17:15 98 26 98/41 90 Nasal Cannula 4 05/06/18 17:00 96 23 101/50 89 Nasal Cannula 4 05/06/18 16:35 97 22 128/52 95 Non-Rebreather 15 05/06/18 16:25 101 22 134/48 91 Non-Rebreather 15 05/06/18 16:15 105 16 150/60 89 Non-Rebreather 15 05/06/18 16:11 211.1 110 18 05/06/18 16:10 106 20 156/59 89 Non-Rebreather 15 05/06/18 16:06 99.5 110 18 147/62 90 Non-Rebreather 15 99.5 I&O Intake and Output 05/06/18 05/07/18 19:00 07:00 Intake Total 4700 ml 955.0 ml Output Total 425 ml Balance 4275 ml 955.0 ml IV Total 4200 ml 955.0 ml Other 500 ml Output Urine Total 275 ml Gastric Drainage Total 0 ml Estimated Blood Loss 150 ml # Voids 2 Dressing: dry Wound: clean Drains: none Cardiovascular: other Respiratory: other Abdomen: soft, absent bowel sounds, other - wound c/d/i. abd soft, nd Extremities: no edema, no tenderness, no cyanosis Laboratory Tests Test 05/07/18 05:20 05/07/18 07:20 05/07/18 09:15 05/07/18 10:00 White Blood Count 11.0 K/UL (4.8-10.8) H 14.2 K/UL (4.8-10.8) H Red Blood Count 4.62 M/UL (4.20-5.40) 3.44 M/UL (4.20-5.40) L Hemoglobin 10.7 G/DL (12.0-16.0) L 7.8 G/DL (12.0-16.0) L Hematocrit 34.3 % (37.0-47.0) L 25.8 % (37.0-47.0) L Mean Corpuscular Volume 74 FL (80-99) L 75 FL (80-99) L Mean Corpuscular Hemoglobin 23.1 PG (27.0-31.0) L 22.7 PG (27.0-31.0) L Mean Corpuscular Hemoglobin Concent 31.2 G/DL (32.0-36.0) L 30.3 G/DL (32.0-36.0) L Red Cell Distribution Width 14.3 % (11.6-14.8) 14.5 % (11.6-14.8) Platelet Count 292 K/UL (150-450) 196 K/UL (150-450) Mean Platelet Volume 6.2 FL (6.5-10.1) L 5.9 FL (6.5-10.1) L Neutrophils (%) (Auto) 80.0 % (45.0-75.0) H % (45.0-75.0) Lymphocytes (%) (Auto) 14.9 % (20.0-45.0) L % (20.0-45.0) Monocytes (%) (Auto) 3.8 % (1.0-10.0) % (1.0-10.0) Eosinophils (%) (Auto) 0.6 % (0.0-3.0) % (0.0-3.0) Basophils (%) (Auto) 0.6 % (0.0-2.0) % (0.0-2.0) Prothrombin Time 14.2 SEC (9.30-11.50) H Prothromb Time International Ratio 1.4 (0.9-1.1) H Activated Partial Thromboplast Time 43 SEC (23-33) H Sodium Level 134 MMOL/L (136-145) L 197 MMOL/L (136-145) #*H Potassium Level 4.2 MMOL/L (3.5-5.1) 4.1 MMOL/L (3.5-5.1) Chloride Level 104 MMOL/L (98-107) 129 MMOL/L (98-107) H Carbon Dioxide Level 13 MMOL/L (21-32) L > 45 MMOL/L (21-32) *H Anion Gap 17 mmol/L (5-15) H Blood Urea Nitrogen 25 mg/dL (7-18) H 24 mg/dL (7-18) H Creatinine 2.3 MG/DL (0.55-1.30) #H 2.0 MG/DL (0.55-1.30) H Estimat Glomerular Filtration Rate 21.0 mL/min (>60) 24.6 mL/min (>60) Glucose Level 216 MG/DL (74-106) H 231 MG/DL (74-106) H Calcium Level 7.0 MG/DL (8.5-10.1) #L 5.6 MG/DL (8.5-10.1) *L Phosphorus Level 4.5 MG/DL (2.5-4.9) Magnesium Level 1.1 MG/DL (1.8-2.4) L Arterial Blood pH 7.380 (7.350-7.450) Arterial Blood Partial Pressure CO2 16.8 mmHg (35.0-45.0) *L Arterial Blood Partial Pressure O2 113.8 mmHg (75.0-100.0) H Arterial Blood HCO3 9.9 mmol/L (22.0-26.0) L Arterial Blood Oxygen Saturation 97.6 % (92.0-98.0) Arterial Blood Base Excess -13.2 Curtis Test Positive Lactic Acid Level 7.90 mmol/L (0.4-2.0) H 13.10 mmol/L (0.4-2.0) H Total Bilirubin 0.2 MG/DL (0.2-1.0) Aspartate Amino Transf (AST/SGOT) 2530 U/L (15-37) H Alanine Aminotransferase (ALT/SGPT) 1488 U/L (12-78) H Alkaline Phosphatase 38 U/L (46-116) L Total Protein 2.9 G/DL (6.4-8.2) #L Albumin 1.3 G/DL (3.4-5.0) L Globulin 1.6 g/dL Albumin/Globulin Ratio 0.8 (1.0-2.7) L Differential Total Cells Counted 100 Neutrophils % (Manual) 42 % (45-75) L Lymphocytes % (Manual) 37 % (20-45) Monocytes % (Manual) 11 % (1-10) H Eosinophils % (Manual) 2 % (0-3) Basophils % (Manual) 1 % (0-2) Band Neutrophils 7 % (0-8) Platelet Estimate Adequate Platelet Morphology Normal Hypochromasia Anisocytosis 1+ Test 05/07/18 10:07 05/07/18 10:30 05/07/18 13:15 Arterial Blood pH 7.260 (7.350-7.450) Arterial Blood Partial Pressure CO2 12.8 mmHg (35.0-45.0) *L Arterial Blood Partial Pressure O2 315.5 mmHg (75.0-100.0) H Arterial Blood HCO3 5.6 mmol/L (22.0-26.0) L Arterial Blood Oxygen Saturation 98.9 % (92.0-98.0) H Arterial Blood Base Excess -19.3 Curtis Test Positive Sodium Level 146 MMOL/L (136-145) #H Potassium Level 3.9 MMOL/L (3.5-5.1) Chloride Level 110 MMOL/L (98-107) H Carbon Dioxide Level 14 MMOL/L (21-32) L Anion Gap 22 mmol/L (5-15) H Blood Urea Nitrogen 26 mg/dL (7-18) H Creatinine 2.5 MG/DL (0.55-1.30) H Estimat Glomerular Filtration Rate 19.1 mL/min (>60) Glucose Level 220 MG/DL (74-106) H Calcium Level 5.9 MG/DL (8.5-10.1) *L Lactic Acid Level 17.60 mmol/L (0.4-2.0) H Assessment Post-op Diagnosis perforated pre pyloric anterior gastric ulcer; large Plan Problems: (1) Perforated gastric ulcer Assessment & Plan: 68F likely perforated gastric ulcer. s/p ex lap with B2. spoke with family and seems she has been complaining of pain and deteriorating for the past 8 days prior to admission. in surgery noted to have an abdomen full of GI contents and inflammatory tissues /peritonitis. large ulcer with inflammatory tissue required resection instead of patch. B2 performed given anatomy. initially well post operative and if not improved as compared to pre op condition but rapid deterioration early this AM. no clear reason for rapid deterioration febrile, tachy, hypotensive, ACLS from rapid septic shock. currently in ICU intubated with vent support, on pressors, worsening labs lactic acid 17 and rising. abdomen soft, no significant distention, wound intact. if leak or anastomotic failure wound unlikely be such a quick deterioration on post op day 0. tissues evaluated during surgery viable and anastomosis viable upon completion. no strong concerns for ischemia as tissues had good perfusion. may not much longer since cardiac event and requiring pressors. would not recommend returning to OR a this time. patient too unstable and unlikely to be intraabdominal etiology to such a quick deterioration without any signs/symptoms of abdominal concern. -NPO -IV fluids -ICU care -NGT to low intermittent suction -Heparin -SCD's -Gonzalez -IV Abx prognosis very guarded. thank you Ken Henley May 07, 2018 15:27
--- NOTE | 2018-05-07 15:55 | 48 Hour Post Anesthesia Eval ---
Post Anesthesia Evaluation Procedure: exploratory laparotomy Date of Evaluation: May 07, 2018 Time of Evaluation: 15:30 Blood Pressure Systolic: 110 0: 53 Pulse Rate: 112 Respiratory Rate: 14 Temperature (Fahrenheit): 99 O2 Sat by Pulse Oximetry: 100 Airway: other - intubated on ventilator Nausea: No Vomiting: No Pain Intensity: 0 Hydration Status: adequate Cardiopulmonary Status: requiring pressor to maintain Bp Mental Status/LOC: other - s/p code blue called X 3 IN PAST 24 HOURS Post-Anesthesia Complications: NONE Follow-up care needed: N/A Magnolia Smith M.D. May 07, 2018 15:55
[2018-05-07] MEDS ORDERED: DAPTOmycin 300 MG in NS 55 ML IV SCH (16:00)
[2018-05-07 16:15] LABS: HEMOGLOBIN 7.9 G/DL (12.0-16.0); MEAN CORPUSCULAR VOLUME 75 FL (80-99); PLATELET COUNT 170 K/UL (150-450); RED BLOOD COUNT 3.33 M/UL (4.20-5.40); RED CELL DISTRIBUTION WIDTH 14.7 % (11.6-14.8); WHITE BLOOD COUNT 7.9 K/UL (4.8-10.8)
[2018-05-07] MEDS ORDERED: Acetaminophen 650 MG SUPP RECTAL PRN (16:15)
[2018-05-07] MEDS ORDERED: DiphenhydrAMINE 50mg/ml Inj IVP PRN (16:15)
[2018-05-07 16:19] LABS: ANION GAP 27 mmol/L (5-15); BLOOD UREA NITROGEN 27 mg/dL (7-18); CALCIUM 8.2 MG/DL (8.5-10.1); CHLORIDE 107 MMOL/L (98-107); CREATININE 2.7 MG/DL (0.55-1.30); POTASSIUM 3.6 MMOL/L (3.5-5.1); SODIUM 143 MMOL/L (136-145)
[2018-05-07 16:22] LABS: CARBON DIOXIDE 9 MMOL/L (21-32)
[2018-05-07 16:23] LABS: INR 2.1 (0.9-1.1)
[2018-05-07 16:25] LABS: CREATINE KINASE 889 U/L (26-308)
[2018-05-07] MEDS ORDERED: Piperacillin/Tazobactam 3.375 GM in D5W 110 ML IVPB SCH (17:00)
[2018-05-07] MEDS: NS IVPB SCH (17:10)
[2018-05-07] MEDS: MICAFUNGIN IVPB SCH (17:10)
--- NOTE | 2018-05-07 17:26 | Internal Med Progress Note ---
Subjective Date of Service: May 07, 2018 Physician Name Christopher Connor Attending Physician Praneeth Martinez MD Current Medications Medications (Trade) Dose Ordered Sig/Raghav Route PRN Reason Start Time Stop Time Status Last Admin Dose Admin Acetaminophen (Tylenol) 650 mg Q4H PRN RECTAL FEVER 05/07/18 16:15 06/05/18 16:14 Clonidine HCl (Catapres Tab) 0.1 mg Q6H PRN ORAL For High Blood Pressure 05/07/18 18:45 06/05/18 06:44 Daptomycin 300 mg/ Sodium Chloride 55 ml @ 100 mls/hr Q48H IV 05/07/18 16:00 05/14/18 15:59 Dextrose (Dextrose 50%) 25 ml STAT PRN IV Hypoglycemia 05/08/18 06:45 06/05/18 06:44 Dextrose (Dextrose 50%) 50 ml STAT PRN IV Hypoglycemia 05/08/18 06:45 06/05/18 06:44 Diphenhydramine HCl (Benadryl) 12.5 mg Q6H PRN IVP Itching/Pruritis 05/07/18 16:15 06/05/18 16:14 Heparin Sodium (Porcine) (Heparin 5000 units/ml) 5,000 units EVERY 12 HOURS SUBQ 05/07/18 21:00 06/05/18 20:59 Insulin Aspart (NovoLOG) EVERY 6 HOURS SUBQ 05/07/18 13:00 06/05/18 11:59 05/07/18 15:12 Lorazepam (Ativan 2mg/ml 1ml) 2 mg Q4H PRN IV For Anxiety 05/07/18 14:00 05/14/18 09:59 Meropenem 1 gm/ Sodium Chloride 55 ml @ 110 mls/hr Q24H IVPB 05/07/18 15:00 05/12/18 14:59 05/07/18 15:15 Micafungin Sodium 150 mg/Sodium Chloride 110 ml @ 110 mls/hr Q24H IVPB 05/07/18 17:00 05/14/18 16:59 Morphine Sulfate (Morphine Sulfate) 4 mg Q4H PRN IVP For Pain 05/07/18 14:15 05/14/18 10:04 Norepinephrine Bitartrate 8 mg/ Dextrose 500 ml @ 0 mls/hr Q24H IV 05/07/18 12:30 06/06/18 12:29 05/07/18 15:24 Ondansetron HCl (Zofran) 4 mg Q6H PRN IVP Nausea & Vomiting 05/07/18 16:15 06/05/18 16:14 Pantoprazole (Protonix) 40 mg EVERY 12 HOURS IVP 05/07/18 21:00 06/05/18 08:59 Sodium Bicarbonate 150 ml/Dextrose 1,150 ml @ 150 mls/hr Q7H40M IV 05/07/18 14:30 06/06/18 14:29 05/07/18 14:41 Allergies: Coded Allergies: No Known Allergies (Unverified , 11/30/16) ROS Limited/Unobtainable: Yes Subjective 68 YO F admitted with perforated gastric ulcer. S/P exploratory lap, antrectomy , cholecystectomy and omentectomy on 04/26/18. S/P crdiac arrest; coded X2. Now septic shock. Intubated and sedated . ICU. Cover for Int Nestor-Dr Martinez. Objective Last Vital Signs Date Time Temp Pulse Resp B/P (MAP) Pulse Ox O2 Delivery O2 Flow Rate FiO2 05/07/18 15:55 210.2 112 14 100 05/07/18 15:24 115/53 05/06/18 21:00 Nasal Cannula 4.0 05/06/18 18:35 36 General Appearance: WD/WN, severe distress, lethargic EENT: PERRL/EOMI, normal ENT inspection, TMs normal Neck: non-tender, normal alignment, supple, normal inspection Cardiovascular: normal peripheral pulses, normal rate, regular rhythm, no gallop/murmur, no JVD Respiratory/Chest: chest wall non-tender, crackles/rales, rhonchi - bilaterally , expiratory wheezing Abdomen: decreased bowel sounds, distended, tender Skin: normal pigmentation, warm/dry Laboratory Tests Test 05/07/18 05:20 05/07/18 07:20 05/07/18 09:15 05/07/18 10:00 White Blood Count 11.0 K/UL (4.8-10.8) H 14.2 K/UL (4.8-10.8) H Red Blood Count 4.62 M/UL (4.20-5.40) 3.44 M/UL (4.20-5.40) L Hemoglobin 10.7 G/DL (12.0-16.0) L 7.8 G/DL (12.0-16.0) L Hematocrit 34.3 % (37.0-47.0) L 25.8 % (37.0-47.0) L Mean Corpuscular Volume 74 FL (80-99) L 75 FL (80-99) L Mean Corpuscular Hemoglobin 23.1 PG (27.0-31.0) L 22.7 PG (27.0-31.0) L Mean Corpuscular Hemoglobin Concent 31.2 G/DL (32.0-36.0) L 30.3 G/DL (32.0-36.0) L Red Cell Distribution Width 14.3 % (11.6-14.8) 14.5 % (11.6-14.8) Platelet Count 292 K/UL (150-450) 196 K/UL (150-450) Mean Platelet Volume 6.2 FL (6.5-10.1) L 5.9 FL (6.5-10.1) L Neutrophils (%) (Auto) 80.0 % (45.0-75.0) H % (45.0-75.0) Lymphocytes (%) (Auto) 14.9 % (20.0-45.0) L % (20.0-45.0) Monocytes (%) (Auto) 3.8 % (1.0-10.0) % (1.0-10.0) Eosinophils (%) (Auto) 0.6 % (0.0-3.0) % (0.0-3.0) Basophils (%) (Auto) 0.6 % (0.0-2.0) % (0.0-2.0) Prothrombin Time 14.2 SEC (9.30-11.50) H Prothromb Time International Ratio 1.4 (0.9-1.1) H Activated Partial Thromboplast Time 43 SEC (23-33) H Sodium Level 134 MMOL/L (136-145) L 197 MMOL/L (136-145) #*H Potassium Level 4.2 MMOL/L (3.5-5.1) 4.1 MMOL/L (3.5-5.1) Chloride Level 104 MMOL/L (98-107) 129 MMOL/L (98-107) H Carbon Dioxide Level 13 MMOL/L (21-32) L > 45 MMOL/L (21-32) *H Anion Gap 17 mmol/L (5-15) H Blood Urea Nitrogen 25 mg/dL (7-18) H 24 mg/dL (7-18) H Creatinine 2.3 MG/DL (0.55-1.30) #H 2.0 MG/DL (0.55-1.30) H Estimat Glomerular Filtration Rate 21.0 mL/min (>60) 24.6 mL/min (>60) Glucose Level 216 MG/DL (74-106) H 231 MG/DL (74-106) H Calcium Level 7.0 MG/DL (8.5-10.1) #L 5.6 MG/DL (8.5-10.1) *L Phosphorus Level 4.5 MG/DL (2.5-4.9) Magnesium Level 1.1 MG/DL (1.8-2.4) L Arterial Blood pH 7.380 (7.350-7.450) Arterial Blood Partial Pressure CO2 16.8 mmHg (35.0-45.0) *L Arterial Blood Partial Pressure O2 113.8 mmHg (75.0-100.0) H Arterial Blood HCO3 9.9 mmol/L (22.0-26.0) L Arterial Blood Oxygen Saturation 97.6 % (92.0-98.0) Arterial Blood Base Excess -13.2 Curtis Test Positive Lactic Acid Level 7.90 mmol/L (0.4-2.0) H 13.10 mmol/L (0.4-2.0) H Total Bilirubin 0.2 MG/DL (0.2-1.0) Aspartate Amino Transf (AST/SGOT) 2530 U/L (15-37) H Alanine Aminotransferase (ALT/SGPT) 1488 U/L (12-78) H Alkaline Phosphatase 38 U/L (46-116) L Total Protein 2.9 G/DL (6.4-8.2) #L Albumin 1.3 G/DL (3.4-5.0) L Globulin 1.6 g/dL Albumin/Globulin Ratio 0.8 (1.0-2.7) L Differential Total Cells Counted 100 Neutrophils % (Manual) 42 % (45-75) L Lymphocytes % (Manual) 37 % (20-45) Monocytes % (Manual) 11 % (1-10) H Eosinophils % (Manual) 2 % (0-3) Basophils % (Manual) 1 % (0-2) Band Neutrophils 7 % (0-8) Platelet Estimate Adequate Platelet Morphology Normal Hypochromasia Anisocytosis 1+ Test 05/07/18 10:07 05/07/18 10:30 05/07/18 13:15 05/07/18 15:52 Arterial Blood pH 7.260 (7.350-7.450) Arterial Blood Partial Pressure CO2 12.8 mmHg (35.0-45.0) *L Arterial Blood Partial Pressure O2 315.5 mmHg (75.0-100.0) H Arterial Blood HCO3 5.6 mmol/L (22.0-26.0) L Arterial Blood Oxygen Saturation 98.9 % (92.0-98.0) H Arterial Blood Base Excess -19.3 Curtis Test Positive Sodium Level 146 MMOL/L (136-145) #H 143 MMOL/L (136-145) Potassium Level 3.9 MMOL/L (3.5-5.1) 3.6 MMOL/L (3.5-5.1) Chloride Level 110 MMOL/L (98-107) H 107 MMOL/L (98-107) Carbon Dioxide Level 14 MMOL/L (21-32) L 9 MMOL/L (21-32) *L Anion Gap 22 mmol/L (5-15) H 27 mmol/L (5-15) H Blood Urea Nitrogen 26 mg/dL (7-18) H 27 mg/dL (7-18) H Creatinine 2.5 MG/DL (0.55-1.30) H 2.7 MG/DL (0.55-1.30) H Estimat Glomerular Filtration Rate 19.1 mL/min (>60) 17.4 mL/min (>60) Glucose Level 220 MG/DL (74-106) H 183 MG/DL (74-106) H Calcium Level 5.9 MG/DL (8.5-10.1) *L 8.2 MG/DL (8.5-10.1) #L Lactic Acid Level 17.60 mmol/L (0.4-2.0) H 16.80 mmol/L (0.4-2.0) H White Blood Count 7.9 K/UL (4.8-10.8) Red Blood Count 3.33 M/UL (4.20-5.40) L Hemoglobin 7.9 G/DL (12.0-16.0) L Hematocrit 25.0 % (37.0-47.0) L Mean Corpuscular Volume 75 FL (80-99) L Mean Corpuscular Hemoglobin 23.8 PG (27.0-31.0) L Mean Corpuscular Hemoglobin Concent 31.7 G/DL (32.0-36.0) L Red Cell Distribution Width 14.7 % (11.6-14.8) Platelet Count 170 K/UL (150-450) Mean Platelet Volume 6.4 FL (6.5-10.1) L Neutrophils (%) (Auto) % (45.0-75.0) Lymphocytes (%) (Auto) % (20.0-45.0) Monocytes (%) (Auto) % (1.0-10.0) Eosinophils (%) (Auto) % (0.0-3.0) Basophils (%) (Auto) % (0.0-2.0) Neutrophils % (Manual) Pending Lymphocytes % (Manual) Pending Platelet Estimate Pending Platelet Morphology Pending Prothrombin Time 21.4 SEC (9.30-11.50) H Prothromb Time International Ratio 2.1 (0.9-1.1) H Activated Partial Thromboplast Time 84 SEC (23-33) H Total Creatine Kinase 889 U/L (26-308) H Microbiology Date/Time Source Procedure Growth Status 05/06/18 15:00 Abdominal Fluid Gram Stain - Final Resulted 05/06/18 15:00 Abdominal Fluid Aerobic Culture - Preliminary Resulted 05/06/18 15:00 Abdominal Fluid Anaerobic Culture - Preliminary Resulted Intake and Output 05/06/18 05/07/18 19:00 07:00 Intake Total 4700 ml 955.0 ml Output Total 425 ml Balance 4275 ml 955.0 ml IV Total 4200 ml 955.0 ml Other 500 ml Output Urine Total 275 ml Gastric Drainage Total 0 ml Estimated Blood Loss 150 ml # Voids 2 Assessment/Plan Problem List: (1) HTN (hypertension) (2) Diabetes mellitus, type II Assessment & Plan: Continue novolog sliding scale. (3) Hypercholesteremia (4) Septic shock Assessment & Plan: On levophed. Continue meropenem, daptomycin, and micafungin per ID (5) Cardiac arrest (6) Perforated gastric ulcer Assessment & Plan: S/P antrectomy, cholecystectomy ad omentectomy on 05/06/18- see surgery note. (7) Pneumoperitoneum Status: deteriorating Assessment/Plan prognosis is guarded. Christopher Connor MD May 07, 2018 17:26
[2018-05-08] VITALS (65 sets, daily range): BP systolic 36–120; BP diastolic 11–83
[2018-05-08] MEDS: Sodium Bicarbonate 150 ML in D5W 1000ml 1,000 ML IV SCH ×2 (05:39→13:34)
[2018-05-08] MEDS: Norepinephrine Bitartrate 8 MG in D5W 500ml 492 ML IV SCH ×3 (05:40→17:35)
[2018-05-08] MEDS: NovoLOG Insulin Flexpen SUBQ SCH ×3 (05:41→17:39)
[2018-05-08 06:15] LABS: HEMATOCRIT 25.7 % (37.0-47.0); HEMOGLOBIN 8.5 G/DL (12.0-16.0); MEAN CORPUSCULAR VOLUME 76 FL (80-99); PLATELET COUNT 117 K/UL (150-450); RED CELL DISTRIBUTION WIDTH 14.4 % (11.6-14.8); WHITE BLOOD COUNT 7.4 K/UL (4.8-10.8)
[2018-05-08 06:22] LABS: ANION GAP 33 mmol/L (5-15); BLOOD UREA NITROGEN 29 mg/dL (7-18); CALCIUM 7.7 MG/DL (8.5-10.1); CHLORIDE 98 MMOL/L (98-107); CREATININE 3.3 MG/DL (0.55-1.30); SODIUM 139 MMOL/L (136-145)
[2018-05-08 06:26] LABS: CARBON DIOXIDE 8 MMOL/L (21-32)
[2018-05-08] MEDS: Heparin 5000 units/ml inj SUBQ SCH ×2 (08:13→21:00)
[2018-05-08] MEDS ORDERED: Pantoprazole Inj IV SCH ×2 (09:00→10:05)
[2018-05-08] MEDS: Pantoprazole Inj IVP SCH ×2 (09:24→21:08)
--- NOTE | 2018-05-08 12:01 | Infectious Diseases Prog Note ---
Assessment/Plan Assessment/Plan Assessment Perforated gastric ulcer - Now in Septic Shock- r/o bacteremia, fungemia -s/p exp lap, antrectomy with gastrojejunostomy, cholecystectomy, omentectomy and abdominal washout 05/06 -OR findings: large perforated pre pyloric anterior gastric ulcer with active leaking of gastric and bilious contents. significant amount of abdominal fluid content that was with sediments and food particles. omentum was fairly thickened and inflamed as well, and the gallbladder was noted to be dilated and tense with inflammatory adhesions around it. significant amount of inflammatory tissue around the distal gastric and proximal duodenum as well as in the hilar plate and to the omentum. -CT abd/p: Pneumoperitoneum indicative of perforated hollow viscus. Most likely a perforated gastric ulcer, as there does appear to be a small mural gas and fluid collection within the gastric antrum as well as generalized wall thickening of the gastric wall. Free intraperitoneal fluid, presumably secondary to the above. Evidence of interim small bowel surgery for previously demonstrated small bowel perforation Peripheral wedge-shaped areas of decreased attenuation in the right kidney, not evident previously. These raise concern for focal areas of nephritis or small infarcts. Renal and right lobe liver subcentimeter low-attenuation lesions which are too small to characterize, most likely benign simple cysts. No further follow-up necessary. Bilateral basilar pulmonary interstitial septal thickening, acuity indeterminate. There are also compressive atelectatic changes Leukocytosis - 2/2 to above- resolved Severe lactic acidosis/anion radha metabolic acidosis STEVIE, worsening Encephalopathy Dm2 HLD SBO s/p surgery 11/2016 Plan: - Continue Meropenem, Micafungin abx d#3 and IV Daptomycin #2 for septic shock -05/07 SP Zosyn 2# and Fluconazole #2 -Bcx x2 -f/u cx from OR -Monitor CBC/CMP, temperatures -Sx f/u -aspiration precautions -wound care per hosp protocol - Patient with poor prognosis Thank you for this consultation. Will continue to follow along with you. Discussed with RN. Subjective Allergies: Coded Allergies: No Known Allergies (Unverified , 11/30/16) Subjective afebrile in >24hrs leukocytosis resolved remains maxed on levophed severe lactic acidosis Cr increasing Objective Vital Signs Last 24 Hour Vital Signs Date Time Temp Pulse Resp B/P (MAP) Pulse Ox O2 Delivery O2 Flow Rate FiO2 7/28/18 11:00 87 24 84/29 (47) 99 7/18 10:45 98 29 40 7/18 10:30 96.8 87 24 120/83 (95) 99 96.8 718 10:00 87 30 89/51 (64) 99 718 09:30 87 31 85/43 (57) 99 7/18 09:24 95/48 718 09:00 98 30 40 7/18 09:00 90 31 101/42 (61) 99 718 08:30 93 31 104/50 (68) 99 18 08:00 96 718 08:00 Mechanical Ventilator 05/08/18 08:00 40 05/08/18 08:00 99 29 95/48 (64) 99 18 07:30 99 29 102/46 (64) 99 18 07:00 104/46 18 07:00 98 29 92/48 (63) 99 18 06:45 99 30 40 718 06:30 100 29 94/45 (61) 99 18 06:00 96 29 80/46 (57) 99 18 06:00 80/46 18 05:45 98 29 83/38 (53) 98 18 05:40 111/42 18 05:30 101 29 111/42 (65) 99 05/08/18 05:29 97 30 40 18 05:15 99 28 97/43 (61) 98 18 05:00 96 29 74/41 (52) 98 7/18 05:00 74/41 7/18 04:45 98 29 91/55 (67) 98 18 04:30 96 31 86/47 (60) 97 18 04:15 94 32 112/46 (68) 97 18 04:00 92 718 04:00 Mechanical Ventilator 18 04:00 104/45 718 04:00 98.0 94 33 104/45 (64) 98 98.0 18 03:59 40 718 03:30 94 33 101/36 (57) 97 18 03:15 97 33 101/56 (71) 97 05/08/18 03:03 98 28 40 05/08/18 03:00 98 33 113/55 (74) 97 18 03:00 113/55 05/08/18 02:45 98 32 101/43 (62) 97 05/08/18 02:30 98 32 102/38 (59) 97 18 02:15 99 32 102/38 (59) 96 18 02:00 99 32 83/22 (42) 97 18 02:00 83/22 05/08/18 02:00 100 32 106/45 (65) 97 05/08/18 01:45 98 32 100/45 (63) 97 05/08/18 01:30 97 31 92/42 (59) 97 05/08/18 01:15 96 31 90/45 (60) 97 05/08/18 01:00 83/42 05/08/18 01:00 93 28 83/42 (56) 97 05/08/18 00:47 88 28 40 05/08/18 00:45 90 28 67/31 (43) 98 05/08/18 00:30 90 28 77/43 (54) 98 05/08/18 00:00 Mechanical Ventilator 05/08/18 00:00 40 05/08/18 00:00 90/39 05/08/18 00:00 92 05/08/18 00:00 98.0 92 28 90/39 (56) 99 98.0 05/07/18 23:30 90 28 84/63 (70) 99 18 23:07 94/54 05/07/18 23:00 94/54 05/07/18 23:00 92 28 94/54 (67) 99 18 22:45 92 28 101/49 (66) 99 05/07/18 22:43 91 27 40 05/07/18 22:30 91 28 92/51 (65) 99 05/07/18 22:15 91 28 88/42 (57) 99 05/07/18 22:00 90 28 81/57 (65) 99 05/07/18 22:00 88/42 05/07/18 21:45 91 28 90/36 (54) 99 18 21:30 91 28 101/76 (84) 99 05/07/18 21:15 93 28 108/48 (68) 99 05/07/18 21:07 92 27 40 05/07/18 21:00 77/37 05/07/18 21:00 93 27 77/37 (50) 100 05/07/18 20:45 92 27 80/53 (62) 100 05/07/18 20:30 94 27 85/55 (65) 99 05/07/18 20:15 95 28 92/48 (63) 99 05/07/18 20:00 Mechanical Ventilator 05/07/18 20:00 107 05/07/18 20:00 40 05/07/18 20:00 82/43 05/07/18 20:00 98.2 97 28 82/43 (56) 99 98.2 05/07/18 19:45 94 27 81/48 (59) 100 05/07/18 19:30 94 27 81/48 (59) 100 05/07/18 19:15 103 28 92/45 (61) 99 05/07/18 19:00 110 33 98/51 (67) 100 05/07/18 19:00 98/51 05/07/18 19:00 98/51 05/07/18 18:46 111 32 50 05/07/18 18:43 40 05/07/18 18:30 111 33 104/52 (69) 100 05/07/18 18:00 113 33 95/42 (59) 100 18 18:00 109/52 05/07/18 18:00 109/52 05/07/18 17:30 115 33 119/45 (69) 100 05/07/18 17:07 113 32 50 05/07/18 17:00 115 33 119/45 (69) 100 18 17:00 119/54 05/07/18 17:00 119/54 05/07/18 16:30 112 33 109/45 (66) 100 05/07/18 16:00 95/49 18 16:00 95/49 05/07/18 16:00 112 33 95/49 (64) 100 05/07/18 15:55 210.2 112 14 100 7/27/18 15:30 115 33 119/51 (73) 100 05/07/18 15:24 115/53 05/07/18 15:03 115 32 50 05/07/18 15:00 115 33 119/51 (73) 100 05/07/18 15:00 116/55 05/07/18 14:30 115 33 116/55 (75) 100 05/07/18 14:00 119 33 113/56 (75) 100 05/07/18 14:00 113/56 05/07/18 13:30 121 33 108/55 (72) 100 05/07/18 13:27 103 33 50 05/07/18 13:00 98.1 129 33 116/58 (77) 100 98.1 05/07/18 13:00 116/58 05/07/18 12:30 129 33 124/68 (86) 100 05/07/18 12:09 110/42 05/07/18 12:00 86 20 124/68 (86) 100 05/07/18 12:00 124/68 05/07/18 12:00 Mechanical Ventilator Height (Feet): 4 Height (Inches): 10.00 Weight (Pounds): 138 Objective General Appearance: Intubated HEENT: NCAT, ET tube in place, DMM, mucous membranes moist, Pupils poorly reactive Respiratory/Chest: normal breath sounds, no respiratory distress, no accessory muscle use Cardiovascular/Chest: Tachycardic RR, S1, S2 Abdomen: soft, bandage over surgical site, Extremities: Mild peripheral edema, Pulses 1+ B/L (DP, Rad) Skin Exam: normal pigmentation Neurologic: Opens eyes but not responsive, Microbiology Date/Time Source Procedure Growth Status 05/06/18 15:00 Abdominal Fluid Gram Stain - Final Resulted 05/06/18 15:00 Aerobic Culture - Preliminary Maria Esther Albicans Gram Negative Bacillus 1 Resulted 05/06/18 15:00 Abdominal Fluid Anaerobic Culture - Preliminary NO GROWTH AFTER 48 HOURS Resulted Laboratory Tests Test 05/07/18 13:15 05/07/18 15:52 05/07/18 18:12 05/07/18 22:30 Lactic Acid Level 17.60 mmol/L (0.4-2.0) H 16.80 mmol/L (0.4-2.0) H 21.80 mmol/L (0.4-2.0) H White Blood Count 7.9 K/UL (4.8-10.8) Red Blood Count 3.33 M/UL (4.20-5.40) L Hemoglobin 7.9 G/DL (12.0-16.0) L Hematocrit 25.0 % (37.0-47.0) L Mean Corpuscular Volume 75 FL (80-99) L Mean Corpuscular Hemoglobin 23.8 PG (27.0-31.0) L Mean Corpuscular Hemoglobin Concent 31.7 G/DL (32.0-36.0) L Red Cell Distribution Width 14.7 % (11.6-14.8) Platelet Count 170 K/UL (150-450) Mean Platelet Volume 6.4 FL (6.5-10.1) L Neutrophils (%) (Auto) % (45.0-75.0) Lymphocytes (%) (Auto) % (20.0-45.0) Monocytes (%) (Auto) % (1.0-10.0) Eosinophils (%) (Auto) % (0.0-3.0) Basophils (%) (Auto) % (0.0-2.0) Differential Total Cells Counted 100 Neutrophils % (Manual) 56 % (45-75) Lymphocytes % (Manual) 26 % (20-45) Monocytes % (Manual) 3 % (1-10) Eosinophils % (Manual) 0 % (0-3) Basophils % (Manual) 0 % (0-2) Band Neutrophils 15 % (0-8) H Platelet Estimate Adequate Platelet Morphology Normal Hypochromasia 1+ Anisocytosis 1+ Prothrombin Time 21.4 SEC (9.30-11.50) H Prothromb Time International Ratio 2.1 (0.9-1.1) H Activated Partial Thromboplast Time 84 SEC (23-33) H Sodium Level 143 MMOL/L (136-145) Potassium Level 3.6 MMOL/L (3.5-5.1) Chloride Level 107 MMOL/L (98-107) Carbon Dioxide Level 9 MMOL/L (21-32) *L Anion Gap 27 mmol/L (5-15) H Blood Urea Nitrogen 27 mg/dL (7-18) H Creatinine 2.7 MG/DL (0.55-1.30) H Estimat Glomerular Filtration Rate 17.4 mL/min (>60) Glucose Level 183 MG/DL (74-106) H Calcium Level 8.2 MG/DL (8.5-10.1) #L Total Creatine Kinase 889 U/L (26-308) H Arterial Blood pH 7.410 (7.350-7.450) Arterial Blood Partial Pressure CO2 10.8 mmHg (35.0-45.0) *L Arterial Blood Partial Pressure O2 133.7 mmHg (75.0-100.0) H Arterial Blood HCO3 6.8 mmol/L (22.0-26.0) L Arterial Blood Oxygen Saturation 97.8 % (92.0-98.0) Arterial Blood Base Excess -15.7 Curtis Test Positive Test 05/08/18 05:46 05/08/18 07:01 05/08/18 08:00 05/08/18 10:45 White Blood Count 7.4 K/UL (4.8-10.8) Red Blood Count 3.40 M/UL (4.20-5.40) L Hemoglobin 8.5 G/DL (12.0-16.0) L Hematocrit 25.7 % (37.0-47.0) L Mean Corpuscular Volume 76 FL (80-99) L Mean Corpuscular Hemoglobin 25.1 PG (27.0-31.0) L Mean Corpuscular Hemoglobin Concent 33.2 G/DL (32.0-36.0) Red Cell Distribution Width 14.4 % (11.6-14.8) Platelet Count 117 K/UL (150-450) L Mean Platelet Volume 6.0 FL (6.5-10.1) L Neutrophils (%) (Auto) % (45.0-75.0) Lymphocytes (%) (Auto) % (20.0-45.0) Monocytes (%) (Auto) % (1.0-10.0) Eosinophils (%) (Auto) % (0.0-3.0) Basophils (%) (Auto) % (0.0-2.0) Differential Total Cells Counted 100 Neutrophils % (Manual) 82 % (45-75) H Lymphocytes % (Manual) 7 % (20-45) L Monocytes % (Manual) 3 % (1-10) Eosinophils % (Manual) 0 % (0-3) Basophils % (Manual) 0 % (0-2) Band Neutrophils 8 % (0-8) Platelet Estimate Decreased L Platelet Morphology Normal Anisocytosis 1+ Microcytosis 1+ Sodium Level 139 MMOL/L (136-145) Potassium Level 4.0 MMOL/L (3.5-5.1) Chloride Level 98 MMOL/L (98-107) Carbon Dioxide Level 8 MMOL/L (21-32) *L Anion Gap 33 mmol/L (5-15) H Blood Urea Nitrogen 29 mg/dL (7-18) H Creatinine 3.3 MG/DL (0.55-1.30) H Estimat Glomerular Filtration Rate 13.8 mL/min (>60) Glucose Level 252 MG/DL (74-106) H Lactic Acid Level 23.80 mmol/L (0.4-2.0) H 25.10 mmol/L (0.66-2.22) H 25.40 mmol/L (0.4-2.0) H Calcium Level 7.7 MG/DL (8.5-10.1) L Albumin 1.8 G/DL (3.4-5.0) L Arterial Blood pH 7.350 (7.350-7.450) Arterial Blood Partial Pressure CO2 11.2 mmHg (35.0-45.0) *L Arterial Blood Partial Pressure O2 74.7 mmHg (75.0-100.0) L Arterial Blood HCO3 6.1 mmol/L (22.0-26.0) L Arterial Blood Oxygen Saturation 93.0 % (92.0-98.0) Arterial Blood Base Excess -17.5 Curtis Test Positive Current Medications Medications (Trade) Dose Ordered Sig/Raghav Route PRN Reason Start Time Stop Time Status Last Admin Dose Admin Acetaminophen (Tylenol) 650 mg Q4H PRN RECTAL FEVER 05/07/18 16:15 06/05/18 16:14 Chlorhexidine Gluconate (Jovita-Hex 2%) 1 applic DAILY@1999 TOPIC 05/08/18 20:00 06/07/18 19:59 Clonidine HCl (Catapres Tab) 0.1 mg Q6H PRN ORAL For High Blood Pressure 05/07/18 18:45 06/05/18 06:44 Daptomycin 300 mg/ Sodium Chloride 55 ml @ 100 mls/hr Q48H IV 05/07/18 16:00 05/14/18 15:59 05/07/18 17:08 Dextrose (Dextrose 50%) 25 ml STAT PRN IV Hypoglycemia 05/08/18 06:45 06/05/18 06:44 Dextrose (Dextrose 50%) 50 ml STAT PRN IV Hypoglycemia 05/08/18 06:45 06/05/18 06:44 Diphenhydramine HCl (Benadryl) 12.5 mg Q6H PRN IVP Itching/Pruritis 05/07/18 16:15 06/05/18 16:14 Heparin Sodium (Porcine) (Heparin 5000 units/ml) 5,000 units EVERY 12 HOURS SUBQ 05/07/18 21:00 06/05/18 20:59 05/07/18 20:57 Insulin Aspart (NovoLOG) EVERY 6 HOURS SUBQ 05/07/18 13:00 06/05/18 11:59 05/08/18 05:41 Lorazepam (Ativan 2mg/ml 1ml) 2 mg Q4H PRN IV For Anxiety 05/07/18 14:00 05/14/18 09:59 Meropenem 1 gm/ Sodium Chloride 55 ml @ 110 mls/hr Q24H IVPB 05/07/18 15:00 05/12/18 14:59 05/07/18 15:15 Micafungin Sodium 150 mg/Sodium Chloride 110 ml @ 110 mls/hr Q24H IVPB 05/07/18 17:00 05/14/18 16:59 05/07/18 17:10 Morphine Sulfate (Morphine Sulfate) 4 mg Q4H PRN IVP For Pain 05/07/18 14:15 05/14/18 10:04 Norepinephrine Bitartrate 8 mg/ Dextrose 500 ml @ 0 mls/hr Q24H IV 05/07/18 12:30 06/06/18 12:29 05/08/18 09:24 Ondansetron HCl (Zofran) 4 mg Q6H PRN IVP Nausea & Vomiting 05/07/18 16:15 06/05/18 16:14 Pantoprazole (Protonix) 40 mg EVERY 12 HOURS IVP 05/07/18 21:00 06/05/18 08:59 05/08/18 09:24 Sodium Bicarbonate 150 ml/Dextrose 1,150 ml @ 150 mls/hr Q7H40M IV 05/07/18 14:30 06/06/18 14:29 05/08/18 05:39 Annemarie Linn M.D. May 08, 2018 12:01
[2018-05-08] MEDS ORDERED: Hydrocortisone 100mg Inj IV ONE (12:30)
[2018-05-08] MEDS: Phenylephrine 50 MG in D5W 245 ML IV SCH ×3 (12:45→21:01)
--- NOTE | 2018-05-08 14:18 | Internal Med Progress Note ---
Subjective Date of Service: May 08, 2018 Physician Name Christopher Connor Attending Physician Praneeth Martinez MD Current Medications Medications (Trade) Dose Ordered Sig/Raghav Route PRN Reason Start Time Stop Time Status Last Admin Dose Admin Acetaminophen (Tylenol) 650 mg Q4H PRN RECTAL FEVER 05/07/18 16:15 06/05/18 16:14 Chlorhexidine Gluconate (Jovita-Hex 2%) 1 applic DAILY@2000 TOPIC 05/08/18 20:00 06/07/18 19:59 Clonidine HCl (Catapres Tab) 0.1 mg Q6H PRN ORAL For High Blood Pressure 05/07/18 18:45 06/05/18 06:44 Daptomycin 300 mg/ Sodium Chloride 55 ml @ 100 mls/hr Q48H IV 05/07/18 16:00 05/14/18 15:59 05/07/18 17:08 Dextrose (Dextrose 50%) 25 ml STAT PRN IV Hypoglycemia 05/08/18 06:45 06/05/18 06:44 Dextrose (Dextrose 50%) 50 ml STAT PRN IV Hypoglycemia 05/08/18 06:45 06/05/18 06:44 Diphenhydramine HCl (Benadryl) 12.5 mg Q6H PRN IVP Itching/Pruritis 05/07/18 16:15 06/05/18 16:14 Heparin Sodium (Porcine) (Heparin 5000 units/ml) 5,000 units EVERY 12 HOURS SUBQ 05/07/18 21:00 06/05/18 20:59 05/07/18 20:57 Insulin Aspart (NovoLOG) EVERY 6 HOURS SUBQ 05/07/18 13:00 06/05/18 11:59 05/08/18 12:09 Lorazepam (Ativan 2mg/ml 1ml) 2 mg Q4H PRN IV For Anxiety 05/07/18 14:00 05/14/18 09:59 Meropenem 1 gm/ Sodium Chloride 55 ml @ 110 mls/hr Q24H IVPB 05/07/18 15:00 05/12/18 14:59 05/07/18 15:15 Micafungin Sodium 150 mg/Sodium Chloride 110 ml @ 110 mls/hr Q24H IVPB 05/07/18 17:00 05/14/18 16:59 05/07/18 17:10 Morphine Sulfate (Morphine Sulfate) 4 mg Q4H PRN IVP For Pain 05/07/18 14:15 05/14/18 10:04 Norepinephrine Bitartrate 8 mg/ Dextrose 500 ml @ 0 mls/hr Q24H IV 05/07/18 12:30 06/06/18 12:29 05/08/18 09:24 Ondansetron HCl (Zofran) 4 mg Q6H PRN IVP Nausea & Vomiting 05/07/18 16:15 06/05/18 16:14 Pantoprazole (Protonix) 40 mg EVERY 12 HOURS IVP 05/07/18 21:00 06/05/18 08:59 05/08/18 09:24 Phenylephrine HCl 50 mg/Dextrose 250 ml @ 0 mls/hr Q24H IV 05/08/18 12:45 06/07/18 12:44 05/08/18 12:45 Sodium Bicarbonate 150 ml/Dextrose 1,150 ml @ 150 mls/hr Q7H40M IV 05/07/18 14:30 06/06/18 14:29 05/08/18 13:34 Allergies: Coded Allergies: No Known Allergies (Unverified , 11/30/16) ROS Limited/Unobtainable: Yes Subjective 68 YO F admitted with perforated gastric ulcer. S/P exploratory lap, antrectomy , cholecystectomy and omentectomy on 04/26/18. S/P crdiac arrest; coded X2. Now septic shock. Intubated and sedated . ICU. Cover for Int Nestor-Dr Martinez.. Hypotensive and hypothermia. On levophed and phenylephrine.. Objective Last Vital Signs Date Time Temp Pulse Resp B/P (MAP) Pulse Ox O2 Delivery O2 Flow Rate FiO2 05/08/18 13:30 86 24 82/30 (47) 98 05/08/18 13:00 94.5 94.5 05/08/18 12:00 Mechanical Ventilator 05/08/18 12:00 40 05/06/18 21:00 4.0 Laboratory Tests Test 05/07/18 15:52 05/07/18 18:12 05/07/18 22:30 05/08/18 05:46 White Blood Count 7.9 K/UL (4.8-10.8) 7.4 K/UL (4.8-10.8) Red Blood Count 3.33 M/UL (4.20-5.40) L 3.40 M/UL (4.20-5.40) L Hemoglobin 7.9 G/DL (12.0-16.0) L 8.5 G/DL (12.0-16.0) L Hematocrit 25.0 % (37.0-47.0) L 25.7 % (37.0-47.0) L Mean Corpuscular Volume 75 FL (80-99) L 76 FL (80-99) L Mean Corpuscular Hemoglobin 23.8 PG (27.0-31.0) L 25.1 PG (27.0-31.0) L Mean Corpuscular Hemoglobin Concent 31.7 G/DL (32.0-36.0) L 33.2 G/DL (32.0-36.0) Red Cell Distribution Width 14.7 % (11.6-14.8) 14.4 % (11.6-14.8) Platelet Count 170 K/UL (150-450) 117 K/UL (150-450) L Mean Platelet Volume 6.4 FL (6.5-10.1) L 6.0 FL (6.5-10.1) L Neutrophils (%) (Auto) % (45.0-75.0) % (45.0-75.0) Lymphocytes (%) (Auto) % (20.0-45.0) % (20.0-45.0) Monocytes (%) (Auto) % (1.0-10.0) % (1.0-10.0) Eosinophils (%) (Auto) % (0.0-3.0) % (0.0-3.0) Basophils (%) (Auto) % (0.0-2.0) % (0.0-2.0) Differential Total Cells Counted 100 100 Neutrophils % (Manual) 56 % (45-75) 82 % (45-75) H Lymphocytes % (Manual) 26 % (20-45) 7 % (20-45) L Monocytes % (Manual) 3 % (1-10) 3 % (1-10) Eosinophils % (Manual) 0 % (0-3) 0 % (0-3) Basophils % (Manual) 0 % (0-2) 0 % (0-2) Band Neutrophils 15 % (0-8) H 8 % (0-8) Platelet Estimate Adequate Decreased L Platelet Morphology Normal Normal Hypochromasia 1+ Anisocytosis 1+ 1+ Prothrombin Time 21.4 SEC (9.30-11.50) H Prothromb Time International Ratio 2.1 (0.9-1.1) H Activated Partial Thromboplast Time 84 SEC (23-33) H Sodium Level 143 MMOL/L (136-145) 139 MMOL/L (136-145) Potassium Level 3.6 MMOL/L (3.5-5.1) 4.0 MMOL/L (3.5-5.1) Chloride Level 107 MMOL/L (98-107) 98 MMOL/L (98-107) Carbon Dioxide Level 9 MMOL/L (21-32) *L 8 MMOL/L (21-32) *L Anion Gap 27 mmol/L (5-15) H 33 mmol/L (5-15) H Blood Urea Nitrogen 27 mg/dL (7-18) H 29 mg/dL (7-18) H Creatinine 2.7 MG/DL (0.55-1.30) H 3.3 MG/DL (0.55-1.30) H Estimat Glomerular Filtration Rate 17.4 mL/min (>60) 13.8 mL/min (>60) Glucose Level 183 MG/DL (74-106) H 252 MG/DL (74-106) H Lactic Acid Level 16.80 mmol/L (0.4-2.0) H 21.80 mmol/L (0.4-2.0) H 23.80 mmol/L (0.4-2.0) H Calcium Level 8.2 MG/DL (8.5-10.1) #L 7.7 MG/DL (8.5-10.1) L Total Creatine Kinase 889 U/L (26-308) H Arterial Blood pH 7.410 (7.350-7.450) Arterial Blood Partial Pressure CO2 10.8 mmHg (35.0-45.0) *L Arterial Blood Partial Pressure O2 133.7 mmHg (75.0-100.0) H Arterial Blood HCO3 6.8 mmol/L (22.0-26.0) L Arterial Blood Oxygen Saturation 97.8 % (92.0-98.0) Arterial Blood Base Excess -15.7 Curtis Test Positive Microcytosis 1+ Albumin 1.8 G/DL (3.4-5.0) L Test 05/08/18 07:01 05/08/18 08:00 05/08/18 10:45 Arterial Blood pH 7.350 (7.350-7.450) Arterial Blood Partial Pressure CO2 11.2 mmHg (35.0-45.0) *L Arterial Blood Partial Pressure O2 74.7 mmHg (75.0-100.0) L Arterial Blood HCO3 6.1 mmol/L (22.0-26.0) L Arterial Blood Oxygen Saturation 93.0 % (92.0-98.0) Arterial Blood Base Excess -17.5 Curtis Test Positive Lactic Acid Level 25.10 mmol/L (0.66-2.22) H 25.40 mmol/L (0.4-2.0) H Microbiology Date/Time Source Procedure Growth Status 05/06/18 15:00 Abdominal Fluid Gram Stain - Final Resulted 05/06/18 15:00 Aerobic Culture - Preliminary Maria Esther Albicans Gram Negative Bacillus 1 Resulted 05/06/18 15:00 Abdominal Fluid Anaerobic Culture - Preliminary NO GROWTH AFTER 48 HOURS Resulted Intake and Output 05/07/18 05/08/18 19:00 07:00 Intake Total 1843.75 ml 2857.5 ml Output Total 235 ml 115 ml Balance 1608.75 ml 2742.5 ml Intake Oral 0 ml 0 ml IV Total 1843.75 ml 2857.5 ml Output Urine Total 35 ml 15 ml Gastric Drainage Total 200 ml 100 ml Objective General Appearance: WD/WN, severe distress, lethargic EENT: PERRL/EOMI, normal ENT inspection, TMs normal Neck: non-tender, normal alignment, supple, normal inspection Cardiovascular: normal peripheral pulses, normal rate, regular rhythm, no gallop/murmur, no JVD Respiratory/Chest: Mech vent; chest wall non-tender, crackles/rales, rhonchi - bilaterally, expiratory wheezing Abdomen: decreased bowel sounds, distended, tender Skin: normal pigmentation, warm/dry Assessment/Plan Problem List: (1) HTN (hypertension) Assessment & Plan: Currently hypotensive. (2) Diabetes mellitus, type II Assessment & Plan: Continue novolog sliding scale. (3) Hypercholesteremia (4) Septic shock Assessment & Plan: On levophed. Continue meropenem, daptomycin, and micafungin per ID (5) Cardiac arrest (6) Perforated gastric ulcer Assessment & Plan: S/P antrectomy, cholecystectomy ad omentectomy on 05/06/18- see surgery note. (7) Pneumoperitoneum Status: not improved Assessment/Plan prognosis is guarded. Christopher Connor MD May 08, 2018 14:18
[2018-05-08] MEDS: Meropenem 1 GM in NS 55 ML IVPB SCH (15:06)
[2018-05-08] MEDS: DOPamine 400mg/250ml 250 ML IV SCH ×2 (15:06→21:19)
--- NOTE | 2018-05-08 15:06 | General Surgery Progress Note ---
General Surgery-Progress Note Subjective Procedure Performed 1. exploratory laparotomy 2. antrectomy with gastrojejunostomy ([place] 2) 3. cholecystectomy 4. omentectomy 5. abdominal washout Additional Comments was able to wean pressors temporarily yesterday afternoon but since has worsened again. currently on Max levophed and started on second pressor juan. worsening lactic acidosis. HD unstable. NG tube output bilious. no BM Objective Last 24 Hour Vital Signs Date Time Temp Pulse Resp B/P (MAP) Pulse Ox O2 Delivery O2 Flow Rate FiO2 05/08/18 14:00 90 24 96/40 (58) 99 05/08/18 13:30 86 24 82/30 (47) 98 05/08/18 13:00 94.5 79 24 80/38 (52) 98 94.5 05/08/18 12:45 86 80/38 05/08/18 12:35 77 24 40 05/08/18 12:30 86 24 80/38 (52) 98 05/08/18 12:00 Mechanical Ventilator 05/08/18 12:00 40 05/08/18 12:00 84 05/08/18 12:00 85 24 82/11 (34) 99 05/08/18 11:30 84 24 69/26 (40) 99 05/08/18 11:00 87 24 84/29 (47) 99 05/08/18 10:45 98 29 40 05/08/18 10:30 96.8 87 24 120/83 (95) 99 96.8 05/08/18 10:00 87 30 89/51 (64) 99 05/08/18 09:30 87 31 85/43 (57) 99 05/08/18 09:24 95/48 05/08/18 09:00 98 30 40 05/08/18 09:00 90 31 101/42 (61) 99 05/08/18 08:30 93 31 104/50 (68) 99 05/08/18 08:00 96 05/08/18 08:00 Mechanical Ventilator 05/08/18 08:00 40 05/08/18 08:00 99 29 95/48 (64) 99 05/08/18 07:30 99 29 102/46 (64) 99 05/08/18 07:00 104/46 05/08/18 07:00 98 29 92/48 (63) 99 7/28/18 06:45 99 30 40 718 06:30 100 29 94/45 (61) 99 18 06:00 96 29 80/46 (57) 99 718 06:00 80/46 718 05:45 98 29 83/38 (53) 98 18 05:40 111/42 7/18 05:30 101 29 111/42 (65) 99 18 05:29 97 30 40 7/18 05:15 99 28 97/43 (61) 98 05/08/18 05:00 96 29 74/41 (52) 98 05/08/18 05:00 74/41 05/08/18 04:45 98 29 91/55 (67) 98 05/08/18 04:30 96 31 86/47 (60) 97 05/08/18 04:15 94 32 112/46 (68) 97 05/08/18 04:00 92 05/08/18 04:00 Mechanical Ventilator 05/08/18 04:00 104/45 05/08/18 04:00 98.0 94 33 104/45 (64) 98 98.0 05/08/18 03:59 40 05/08/18 03:30 94 33 101/36 (57) 97 18 03:15 97 33 101/56 (71) 97 18 03:03 98 28 40 05/08/18 03:00 98 33 113/55 (74) 97 18 03:00 113/55 05/08/18 02:45 98 32 101/43 (62) 97 18 02:30 98 32 102/38 (59) 97 18 02:15 99 32 102/38 (59) 96 7/18 02:00 99 32 83/22 (42) 97 7/18 02:00 83/22 7/18 02:00 100 32 106/45 (65) 97 7/18 01:45 98 32 100/45 (63) 97 05/08/18 01:30 97 31 92/42 (59) 97 05/08/18 01:15 96 31 90/45 (60) 97 05/08/18 01:00 83/42 7/28/18 01:00 93 28 83/42 (56) 97 05/08/18 00:47 88 28 40 05/08/18 00:45 90 28 67/31 (43) 98 05/08/18 00:30 90 28 77/43 (54) 98 05/08/18 00:00 Mechanical Ventilator 05/08/18 00:00 40 05/08/18 00:00 90/39 05/08/18 00:00 92 05/08/18 00:00 98.0 92 28 90/39 (56) 99 98.0 05/07/18 23:30 90 28 84/63 (70) 99 05/07/18 23:07 94/54 05/07/18 23:00 94/54 05/07/18 23:00 92 28 94/54 (67) 99 05/07/18 22:45 92 28 101/49 (66) 99 05/07/18 22:43 91 27 40 05/07/18 22:30 91 28 92/51 (65) 99 05/07/18 22:15 91 28 88/42 (57) 99 05/07/18 22:00 90 28 81/57 (65) 99 05/07/18 22:00 88/42 05/07/18 21:45 91 28 90/36 (54) 99 05/07/18 21:30 91 28 101/76 (84) 99 05/07/18 21:15 93 28 108/48 (68) 99 05/07/18 21:07 92 27 40 05/07/18 21:00 77/37 05/07/18 21:00 93 27 77/37 (50) 100 05/07/18 20:45 92 27 80/53 (62) 100 05/07/18 20:30 94 27 85/55 (65) 99 05/07/18 20:15 95 28 92/48 (63) 99 05/07/18 20:00 Mechanical Ventilator 05/07/18 20:00 107 05/07/18 20:00 40 05/07/18 20:00 82/43 05/07/18 20:00 98.2 97 28 82/43 (56) 99 98.2 05/07/18 19:45 94 27 81/48 (59) 100 05/07/18 19:30 94 27 81/48 (59) 100 05/07/18 19:15 103 28 92/45 (61) 99 05/07/18 19:00 110 33 98/51 (67) 100 05/07/18 19:00 98/51 05/07/18 19:00 98/51 05/07/18 18:46 111 32 50 05/07/18 18:43 40 05/07/18 18:30 111 33 104/52 (69) 100 05/07/18 18:00 113 33 95/42 (59) 100 05/07/18 18:00 109/52 05/07/18 18:00 109/52 05/07/18 17:30 115 33 119/45 (69) 100 05/07/18 17:07 113 32 50 05/07/18 17:00 115 33 119/45 (69) 100 05/07/18 17:00 119/54 05/07/18 17:00 119/54 05/07/18 16:30 112 33 109/45 (66) 100 05/07/18 16:00 95/49 05/07/18 16:00 95/49 05/07/18 16:00 112 33 95/49 (64) 100 05/07/18 15:55 210.2 112 14 100 05/07/18 15:30 115 33 119/51 (73) 100 05/07/18 15:24 115/53 05/07/18 15:03 115 32 50 I&O Intake and Output 05/07/18 05/08/18 19:00 07:00 Intake Total 1843.75 ml 2857.5 ml Output Total 235 ml 115 ml Balance 1608.75 ml 2742.5 ml Intake Oral 0 ml 0 ml IV Total 1843.75 ml 2857.5 ml Output Urine Total 35 ml 15 ml Gastric Drainage Total 200 ml 100 ml Dressing: saturated Wound: clean, dry Drains: none Cardiovascular: RSR Respiratory: decreased breath sounds Abdomen: soft, distended, absent bowel sounds Extremities: edema, no tenderness, no cyanosis Laboratory Tests Test 05/07/18 15:52 05/07/18 18:12 05/07/18 22:30 05/08/18 05:46 White Blood Count 7.9 K/UL (4.8-10.8) 7.4 K/UL (4.8-10.8) Red Blood Count 3.33 M/UL (4.20-5.40) L 3.40 M/UL (4.20-5.40) L Hemoglobin 7.9 G/DL (12.0-16.0) L 8.5 G/DL (12.0-16.0) L Hematocrit 25.0 % (37.0-47.0) L 25.7 % (37.0-47.0) L Mean Corpuscular Volume 75 FL (80-99) L 76 FL (80-99) L Mean Corpuscular Hemoglobin 23.8 PG (27.0-31.0) L 25.1 PG (27.0-31.0) L Mean Corpuscular Hemoglobin Concent 31.7 G/DL (32.0-36.0) L 33.2 G/DL (32.0-36.0) Red Cell Distribution Width 14.7 % (11.6-14.8) 14.4 % (11.6-14.8) Platelet Count 170 K/UL (150-450) 117 K/UL (150-450) L Mean Platelet Volume 6.4 FL (6.5-10.1) L 6.0 FL (6.5-10.1) L Neutrophils (%) (Auto) % (45.0-75.0) % (45.0-75.0) Lymphocytes (%) (Auto) % (20.0-45.0) % (20.0-45.0) Monocytes (%) (Auto) % (1.0-10.0) % (1.0-10.0) Eosinophils (%) (Auto) % (0.0-3.0) % (0.0-3.0) Basophils (%) (Auto) % (0.0-2.0) % (0.0-2.0) Differential Total Cells Counted 100 100 Neutrophils % (Manual) 56 % (45-75) 82 % (45-75) H Lymphocytes % (Manual) 26 % (20-45) 7 % (20-45) L Monocytes % (Manual) 3 % (1-10) 3 % (1-10) Eosinophils % (Manual) 0 % (0-3) 0 % (0-3) Basophils % (Manual) 0 % (0-2) 0 % (0-2) Band Neutrophils 15 % (0-8) H 8 % (0-8) Platelet Estimate Adequate Decreased L Platelet Morphology Normal Normal Hypochromasia 1+ Anisocytosis 1+ 1+ Prothrombin Time 21.4 SEC (9.30-11.50) H Prothromb Time International Ratio 2.1 (0.9-1.1) H Activated Partial Thromboplast Time 84 SEC (23-33) H Sodium Level 143 MMOL/L (136-145) 139 MMOL/L (136-145) Potassium Level 3.6 MMOL/L (3.5-5.1) 4.0 MMOL/L (3.5-5.1) Chloride Level 107 MMOL/L (98-107) 98 MMOL/L (98-107) Carbon Dioxide Level 9 MMOL/L (21-32) *L 8 MMOL/L (21-32) *L Anion Gap 27 mmol/L (5-15) H 33 mmol/L (5-15) H Blood Urea Nitrogen 27 mg/dL (7-18) H 29 mg/dL (7-18) H Creatinine 2.7 MG/DL (0.55-1.30) H 3.3 MG/DL (0.55-1.30) H Estimat Glomerular Filtration Rate 17.4 mL/min (>60) 13.8 mL/min (>60) Glucose Level 183 MG/DL (74-106) H 252 MG/DL (74-106) H Lactic Acid Level 16.80 mmol/L (0.4-2.0) H 21.80 mmol/L (0.4-2.0) H 23.80 mmol/L (0.4-2.0) H Calcium Level 8.2 MG/DL (8.5-10.1) #L 7.7 MG/DL (8.5-10.1) L Total Creatine Kinase 889 U/L (26-308) H Arterial Blood pH 7.410 (7.350-7.450) Arterial Blood Partial Pressure CO2 10.8 mmHg (35.0-45.0) *L Arterial Blood Partial Pressure O2 133.7 mmHg (75.0-100.0) H Arterial Blood HCO3 6.8 mmol/L (22.0-26.0) L Arterial Blood Oxygen Saturation 97.8 % (92.0-98.0) Arterial Blood Base Excess -15.7 Curtis Test Positive Microcytosis 1+ Albumin 1.8 G/DL (3.4-5.0) L Test 05/08/18 07:01 05/08/18 08:00 05/08/18 10:45 Arterial Blood pH 7.350 (7.350-7.450) Arterial Blood Partial Pressure CO2 11.2 mmHg (35.0-45.0) *L Arterial Blood Partial Pressure O2 74.7 mmHg (75.0-100.0) L Arterial Blood HCO3 6.1 mmol/L (22.0-26.0) L Arterial Blood Oxygen Saturation 93.0 % (92.0-98.0) Arterial Blood Base Excess -17.5 Curtis Test Positive Lactic Acid Level 25.10 mmol/L (0.66-2.22) H 25.40 mmol/L (0.4-2.0) H Assessment Post-op Diagnosis perforated pre pyloric anterior gastric ulcer; large Plan Problems: (1) Perforated gastric ulcer Assessment & Plan: 68F likely perforated gastric ulcer. s/p ex lap with B2. spoke with family and seems she has been complaining of pain and deteriorating for the past 8 days prior to admission. in surgery noted to have an abdomen full of GI contents and inflammatory tissues /peritonitis. large ulcer with inflammatory tissue required resection instead of patch. B2 performed given anatomy. initially well post operative and if not improved as compared to pre op condition but rapid deterioration early this AM. no clear reason for rapid deterioration febrile, tachy, hypotensive, ACLS from rapid septic shock. currently in ICU intubated with vent support, on pressors, worsening labs lactic acidosis. abdomen soft, distended, wound intact. if leak or anastomotic failure wound unlikely be such a quick deterioration on post op day 0. tissues evaluated during surgery viable and anastomosis viable upon completion. no strong concerns for ischemia as tissues had good perfusion. may not much longer since cardiac event and requiring pressors. would not recommend returning to OR a this time. patient too unstable and unlikely to be intraabdominal etiology to such a quick deterioration without any signs/symptoms of abdominal concern. not mounting a white count. lactic acidosis worsening. minimal urine output. lots of third spacing. not responsive to fluids. ECHO without significant strain. peritoneal cultures noted. likely events have lead to ischemic bowel. may have clotted mesentery or poor perfusion leading to irreversible ischemia in acutely sick patient. unfortunately too unstable for CT scan or OR. not responsive to maximal medical therapy. spoke with family. chemical code only. informed family of poor prognosis. -NPO -IV fluids -ICU care -NGT to low intermittent suction -Heparin -SCD's -Gonzalez -IV Abx prognosis very guarded. thank you Ken Henley May 08, 2018 15:06
[2018-05-08] MEDS ORDERED: NS 275ml ONE ×2 (15:30→22:08)
[2018-05-08] MEDS ORDERED: Tubing IV Secondary IV ONE ×2 (15:30→22:08)
[2018-05-08] MEDS: NS IVPB SCH (17:36)
[2018-05-08] MEDS: MICAFUNGIN IVPB SCH (17:36)
--- NOTE | 2018-05-08 19:53 | Emergency Room Report ---
History of Present Illness General Chief Complaint: Abdominal Pain Source: Patient, Medical Record, PMD Present Illness Allergies: Coded Allergies: No Known Allergies (Unverified , 11/30/16) Patient History Now: No Nursing Documentation-PMH Hx Cardiac Problems: Yes Hx Hypertension: Yes - hyperlipidemia Hx Diabetes: Yes Hx Cancer: No Hx Gastrointestinal Problems: Yes - BOWEL RESECTION,NOV 2016 Hx Neurological Problems: No Physical Exam Vital Signs Date Time Temp Pulse Resp B/P (MAP) Pulse Ox O2 Delivery O2 Flow Rate FiO2 05/06/18 01:14 98.5 75 16 198/90 95 Room Air 98.4 05/06/18 04:55 2.0 05/06/18 18:35 36 Procedures CPR/Code Blue CPR/Code Blue Narrative I was called upstairs to a CODE BLUE Upon arrival the patient had received epinephrine and atropine Patient had regained palpable pulses review of medical records reveals perforated gastric ulcer status post surgery for that Patient's lactic acid has remained significantly elevated Bicarbonate was also given patient continues to have a palpable pulse I spoke to the family patient has significantly poor disposition and grave outlook Patient is a chemical code only and they do not wish for any CPR I also spoke to the attending surgeon on the case And patient handed back to the primary team Medical Decision Making Diagnostic Impression: Primary Impression: Perforated gastric ulcer Qualified Codes: K25.1 - Acute gastric ulcer with perforation Additional Impression: Pneumoperitoneum Last Vital Signs Date Time Temp Pulse Resp B/P (MAP) Pulse Ox O2 Delivery O2 Flow Rate FiO2 05/08/18 18:30 88 24 72/29 (43) 90 05/08/18 16:46 100 05/08/18 16:00 Mechanical Ventilator 05/08/18 15:32 94.5 94.5 05/06/18 21:00 4.0 Disposition: ADMITTED INPATIENT Condition: Serious Referrals: NOT CHOSEN IPA/,REFERRING (PCP) Barron Smith DO May 08, 2018 19:53
[2018-05-08] MEDS ORDERED: Dyna-Hex 2% Top Sol 2oz TOPIC SCH (20:00)
[2018-05-08] MEDS ORDERED: Atropine Inj 1mg/10ml Syr ONE (22:08)
[2018-05-08] MEDS ORDERED: Sodium Bicarbonate 8.4% 50ml Inj ONE (22:08)
--- NOTE | 2018-05-09 14:26 | Cardiology Report ---
APPROVED REPORT EXAM: Two-dimensional and M-mode echocardiogram with Doppler and color Doppler. INDICATION ALTERED MENTAL STATUS M-Mode DIMENSIONS IVSd1.7 (0.7-1.1cm)Left Atrium (MM)4.2 (1.6-4.0cm) LVDd4.7 (3.5-5.6cm)Aortic Root2.9 (2.0-3.7cm) PWd1.3 (0.7-1.1cm)Aortic Cusp Exc.1.6 (1.5-2.0cm) IVSs1.7 cm LVDs3.3 (2.5-4.0cm) PWs2.1 cm Normal left ventricular chamber size, systolic function and wall motion to extent visualized. Left ventricular ejection fraction estimated to be 55-60 %. Mild left ventricular hypertrophy by 2-D . No evidence pericardial effusion. Possible pleural effusion . All other cardiac chamber sizes are within normal limits. Focal aortic valve sclerosis with adequate cusp excursion. Thickened mitral valve leaflets with normal excursion. Mitral annulus and aortic root calcification. Pulmonic valve not well visualized. Normal tricuspid valve structure. Subcostal views are not obtained due to GI-tube . A color flow and spectral Doppler study was performed and revealed: No aortic regurgitation. Trace mitral regurgitation. Normal left ventricular diastolic function . Trace tricuspid regurgitation. Tricuspid systolic velocities suggests peak right ventricular systolic pressure of25 mmHg,
--- NOTE | 2018-05-11 09:58 | Discharge Summary ---
Discharge Summary Discharge Summary _ SUMMARY DATE OF ADMISSION: 05/06/2018 DATE OF EXPIRATION: 05/08/2018 REASON FOR ADMISSION: [68 years old female with past medical history of diabetes mellitus, hypertension, hyperlipidemia, small bowel obstruction, status post bowel resection IN 2017, presented to emergency department complaining of abdominal pain. Pain started about one week ago . pain was described as sharp, epigastric, nonradiating ,10 out of 10 on a scale 1-10. No chest pain or shortness of breath. No fevers, no chills. No nausea, no vomiting, no diarrhea. CT of abdomen and pelvis revealed pneumoperitoneum, indicative of perforated hollow viscus. Most likely perforated gastric ulcer. Free intraperitoneal fluid , presumptively secondary to perforation. Vital signs revealed no fever ,elevated blood pressure 198/90. Laboratory workup revealed leukocytosis ,stable hemoglobin and hematocrit , stable renal parameters and electrolytes. Patient admitted with diagnoses of perforated gastric ulcer, pneumoperitoneum, hypertension ,diabetes, hyperlipidemia. CONSULTANTS: pulmonary Dr. Del Toro ID specialist Dr. Gloria surgery Dr. Henley psychiatrist [facility]: Patient admitted . Surgery consult urgently requested. Patient was started on IV fluids and empiric antibiotics. Patient was kept nothing by mouth. Pain management provided . Patient subsequently undergone on 05/07 expiratory laparotomy,, antrectomy with gastrojejunostomy, cholecystectomy, omentectomy and abdominal washout. Surgeon closely followed. Patient initially did well after surgery. Pain management was provided. Empiric antibiotics continued. Patient was kept nothing by mouth, with IV fluids NG tube inserted to suction. Overnight patient became febrile tachycardic, with change in mental status and short of breath. She subsequently was transferred to ICU. Laboratory workup revealed acute renal failure , high lactic acid-25. Blood pressure was steadily decreasing. CODE BLUE was called , and patient subsequently was orally intubated. Patient exhibited evidence of septic shock and started on Levophed to keep mean arterial pressure above 65. Patient remained hypoxemic with FiO2 100% . Ventilator support and pulmonary toilet provided. Blood sugar was managed with sliding scale of insulin . DVT and GI prophylaxis provided. Echocardiogram revealed preserved ejection fraction 55-60%. Blood culture grew yeast, abdominal fluid with Maria Esther and Escherichia coli. Patient had overwhelming sepsis with fungemia due to intra-abdominal pathology , complicated by septic shock. Patient remained hemodynamically unstable. Drainage from NG tube output was bilious, no bowel movement. Patient had worsening renal failure, persistent high lactic acidosis and remained on 100% FiO2 via ventilator. Family requested to change code status to chemical code only , no chest compression . Second Code Blue was called on 05/08. Patient's condition was grave. ACLS protocol initiated with medication only, since family declined further cast compression. At that time, patient was already on double pressors Levophed and dopamine, still unable to keep blood pressure stable. Renal failure worsened, likely due to unstable hemodynamics. Patient was pronounced by emergency room doctor at that time. Cause of : cardiopulmonary arrest FINAL DIAGNOSES: Sepsis with fungemia ( intraabdominal) Septic shock Status post cardiopulmonary arrest 2 Acute respiratory failure , status post intubation Pneumoperitoneum Perforated anterior large prepyloric gastric ulcer Status post exploratory laparotomy, antrectomy with gastrojejunostomy, cholecystectomy, omentectomy and abdominal washout Severe lactic acidosis/anion gap metabolic acidosis Acute kidney injury, likely acute tubular necrosis secondary to unstable hemodynamics/ shock Encephalopathy Diabetes mellitus type 2 History of hypertension History of small bowel traction, status post resection 2016 Hyperlipidemia I have been assigned to dictate discharge summary for this account. I was not involved in the patient's management. Rohini Sheppard NP May 11, 2018 09:58
== END 2018-05-08 22:09 | disposition expired | DRG 220 ==
LOC: EMR 01:36 → 4E 04:03 → EDBEDREQ 04:20 → ICU 05-07 07:25
PROC: 0D160ZA Bypass Stomach to Jejunum, Open Approach (ICD-10-PCS; 2018-05-06)
PROC: 0DT70ZZ Resection of Stomach, Pylorus, Open Approach (ICD-10-PCS; 2018-05-06)
PROC: 0FT40ZZ Resection of Gallbladder, Open Approach (ICD-10-PCS; 2018-05-06)
PROC: 0DBU0ZZ Excision of Omentum, Open Approach (ICD-10-PCS; 2018-05-06)
PROC: 0DNW0ZZ Release Peritoneum, Open Approach (ICD-10-PCS; 2018-05-06)
PROC: 5A1945Z Respiratory Ventilation, 24-96 Consecutive Hours (ICD-10-PCS; principal; 2018-05-07)
PROC: 0BH17EZ Insertion of Endotracheal Airway into Trachea, Via Natural or Artificial Opening (ICD-10-PCS; 2018-05-07)
PROC: 05HM33Z Insertion of Infusion Device into Right Internal Jugular Vein, Percutaneous Approach (ICD-10-PCS; 2018-05-07)
DX: K25.1 Acute gastric ulcer with perforation (principal); J96.01 Acute respiratory failure with hypoxia; N17.0 Acute kidney failure with tubular necrosis; R65.21 Severe sepsis with septic shock; A41.9 Sepsis, unspecified organism; G93.40 Encephalopathy, unspecified; K65.8 Other peritonitis; E11.9 Type 2 diabetes mellitus without complications; F41.9 Anxiety disorder, unspecified; I10 Essential (primary) hypertension; E78.00 Pure hypercholesterolemia, unspecified; E87.2 Acidosis; I97.121 Postprocedural cardiac arrest following other surgery; Q43.0 Meckel's diverticulum (displaced) (hypertrophic); K66.0 Peritoneal adhesions (postprocedural) (postinfection)
CPT/HCPCS: 36415; 36569; 36600; 71045; 74177; 80048; 80053; 82040; 82550; 82803; 82962; 83605; 83690; 83735; 84100; 85007; 85025; 85610; 85730; 87040; 87070; 87075; 87181; 87205; 92950; 93306; 94002; 94003; 94150; 94664; 94760; 99291; J0171; J1815; J2370; J2405; J2710